=== PATIENT | male | born 1950 | race Caucasian/White ===

== ENCOUNTER 2016-04-15 11:53 | Observation (INO) | payer OTHER ==
[~2016-04-15] VITALS: Ht 170.2 cm; Wt 110.0 kg
[2016-04-15] VITALS (8 sets, daily range): BP systolic 121–130; BP diastolic 60–67; PULSE 80–110; RESP 16–32; TEMP 97.8–98.4; O2SAT 80–97
[~2016-04-15 11:53] MED LIST: ALPH0.1S LEFT EYE; ASPI81TA82 PO; CARB25TA PO; CARV6.252 PO; DICL0.1S LEFT EYE; DUONI NEB; FURO1TAB93 PO; GABA300C3 PO; LATA.005%O EACH EYE; LEVA750T PO; LOVA40TA PO; METF-324 PO; NOVO7030P2 SQ; OMEP20TA PO; PLAV75TA PO; POTA-243 PO; PRED20 PO; ULTR50TA PO; VENTAER INH; VIAG100T PO
--- NOTE | 2016-04-15 12:30 | RADRPT ---
EXAM DATE/TIME: 04/15/2016 12:04 [facility] COMPARISON: No previous studies available for comparison. INDICATIONS : Chest pain. MEDICAL HISTORY : Chronic obstructive pulmonary disease. sleep apnea. SURGICAL HISTORY : Coronary artery stent. ENCOUNTER: Initial ACUITY: 1 week PAIN SCORE: 7/10 LOCATION: middle chest. FINDINGS: A single view of the chest demonstrates the lungs to be symmetrically aerated without evidence of mas s, infiltrate or effusion. The cardiomediastinal contours are unremarkable. Osseous structures are intact. Calcified granuloma left midlung. CONCLUSION: No acute disease. Lucius Jauregui MD on April 15, 2016 at 12:28 Board Certified Radiologist. This report was verified electronically.
[2016-04-15] MEDS ORDERED: SODIUM CHLORIDE 0.9% FLUSH 5 ML FLUSH IVF PRN (12:45)
--- NOTE | 2016-04-15 12:55 | PD ---
HPI Chief Complaint: Respiratory Symptoms Time Seen by Provider: 12:46 Travel History International Travel<30 days: No Contact w/Intl Traveler<30days: No Traveled to known affect area: No History of Present Illness HPI 65-year-old male with a past medical history of h/o STEMI s/p PCI/RCA stent, Obesity, COPD-on home oxygen, CLARI-on CPAP at home, and chronic tobacco abuse, CHF, DM for evaluation of midsternal chest pressure with increased shortness of breath for approximately 1 week. Patient states CPAP makes his chest pain better. He does report intermittent wheezing as well. Patient states he had abdominal pain yesterday, but this has resolved. He believes he takes an anticoagulant, but isn't sure which one. According to chart, he is on Plavix. He does state he took a aspirin this morning, but is not sure how many milligrams he takes. Patient denies any fevers. He does report productive cough. Patient is on home oxygen, 2 liters normally, 3 liters with exertion. PFSH Past Medical History Arthritis: Yes (GENERALIZED) Asthma: Yes Blood Disorders: No Anxiety: No Depression: No Cancer: No Cardiac Catheterization: Yes Cardiovascular Problems: Yes (stent) High Cholesterol: Yes Chest Pain: Yes COPD: Yes Diabetes: Yes Diminished Hearing: No Endocrine: Yes Gastrointestinal Disorders: Yes GERD: Yes Genitourinary: Yes (urine flow weak) Immune Disorder: No Implanted Vascular Access Dvce: No Musculoskeletal: Yes Neurologic: Yes Psychiatric: No Reproductive: No Respiratory: Yes Immunizations Current: Yes Myocardial Infarction: Yes (MAY 2012) Sleep Apnea: Yes (WEARS A CPAP) Ulcer: Yes Past Surgical History Abdominal Surgery: Yes (cholecystectomy) Cardiac Surgery: No Cholecystectomy: Yes Coronary Stent: Yes (1) Ear Surgery: No Endocrine Surgery: No Eye Surgery: No Genitourinary Surgery: No Gynecologic Surgery: No Oral Surgery: No Thoracic Surgery: No Other Surgery: Yes (gallbladder removed) Social History Alcohol Use: No Tobacco Use: Yes (1-2 PPD ) Substance Use: No Allergies-Medications (Allergen,Severity, Reaction): Coded Allergies: No Known Allergies (Verified , 04/15/16) Reported Meds & Prescriptions Reported Meds & Active Scripts Active Levaquin 750 Mg Tab (Levofloxacin) 750 Mg Tab 750 Mg PO DAILY Deltasone 20 Mg Tab (Prednisone) 20 Mg Tab 40 Mg PO DAILY Resp: Albuterol/Ipratropium 2.5 Mg/0.5 Mg (Albuterol/Ipratropium) 1 Amp Nebu 1 Amp NEB TID 30 Days Ventolin Hfa (Albuterol Sulfate) 18 Gm Aero 2 Puff INH Q6 PRN * SHAKE WELL BEFORE USE * Reported Ultram (Tramadol HCl) 50 Mg Tab 50 Mg PO BID Viagra (Sildenafil Citrate) 100 Mg Tab 50 Mg PO 60 MIN PRIOR TO SEX NO MORE THAN 1 DOSE PER 24HRS Lovastatin 40 Mg Tab 40 Mg PO HS Novolin 70/30 (Insulin Human Isoph/Insulin Regular) 100 Units/Ml Inj 54 Units SQ DAILY DAILY BEFORE SUPPER-DO NOT USE MORE THAN 30 MINUTES PRIOR TO MEALS Gabapentin 300 Mg Cap 300 Mg PO HS Diclofenac Sodium (Diclofenac Sodium (Ophth)) 0.1 % Serina 1 Drop LEFT EYE QID Novolin 70/30 (Insulin Human Isoph/Insulin Regular) 100 Units/Ml Inj 46 Units SQ DAILY DAILY BEFORE BREAKFAST-DO NOT TAKE MORE THAN 30 MINUTES BEFORE MEALS Sinemet 25/100 (Carbidopa/Levodopa) 25 Mg/100 Mg Tab 1 Tab PO HS Alphagan P (Brimonidine Tartrate) 0.1 % Serina 1 Drop LEFT EYE Q12 Carvedilol 6.25 mg (Carvedilol) 6.25 Mg Tab 3.125 Mg PO DAILY Plavix (Clopidogrel Bisulfate) 75 Mg Tab 75 Mg PO DAILY Aspir-81 (Aspirin) 81 Mg Tab 81 Mg PO DAILY K-Dur (Potassium Chloride) 10 Meq Tabcr 10 Meq PO DAILY Xalatan (Latanoprost) 0.005 % Soln 1 Drop EACH EYE HS Lasix (Furosemide) 40 Mg Tab 40 Mg PO DAILY Omeprazole 20 mg (Omeprazole) 20 Mg Tab 20 Mg PO DAILY TAKE 30 MINUTES PRIOR TO MEAL Glucophage (Metformin HCl) 1,000 Mg Tab 1,000 Mg PO BID Review of Systems Except as stated in HPI: all other systems reviewed are Neg Physical Exam Narrative GENERAL: Well-developed well-nourished obese male patient, afebrile. SKIN: Warm and dry. HEAD: Normocephalic. Atraumatic. EYES: No scleral icterus. No injection or drainage. NECK: Supple, trachea midline. No JVD or lymphadenopathy. CARDIOVASCULAR: Regular rate and rhythm without murmurs, gallops, or rubs. RESPIRATORY: Breath sounds equal bilaterally. No accessory muscle use. Lungs sounds diminished throughout. GASTROINTESTINAL: Abdomen soft, non-tender, nondistended. MUSCULOSKELETAL: No cyanosis, or edema. BACK: Nontender without obvious deformity. No CVA tenderness. Data Data Last Documented VS Vital Signs Date Time Temp Pulse Resp B/P Pulse Ox O2 Delivery O2 Flow Rate FiO2 04/15/16 12:42 96 Nasal Cannula 2 04/15/16 12:42 85 18 04/15/16 12:42 97.8 Orders Electrocardiogram (04/15/16 12:02) Complete Blood Count With Diff (04/15/16 12:02) Basic Metabolic Panel (Bmp) (04/15/16 12:02) Ckmb (Isoenzyme) Profile (04/15/16 12:02) Troponin I (04/15/16 12:02) Chest, Single Ap (04/15/16 12:02) Oxygen Administration (04/15/16 12:02) Oximetry (04/15/16 12:02) B-Type Natriuretic Peptide (04/15/16 12:44) D-Dimer (04/15/16 12:44) Act Partial Throm Time (Ptt) (04/15/16 12:44) Prothrombin Time / Inr (Pt) (04/15/16 12:44) Iv Access Insert/Monitor (04/15/16 12:44) Ecg Monitoring (04/15/16 12:44) Sodium Chloride 0.9% Flush (Ns Flush) (04/15/16 12:45) Methylprednisolone So Succ Inj (Solumedr (04/15/16 13:00) Albuterol-Ipratropium Neb (Duoneb Neb) (04/15/16 13:00) Ct Pulmonary Angiogram (04/15/16 ) CKMB (04/15/16 13:30) CKMB% (04/15/16 13:30) Iohexol 350 Inj (Omnipaque 350 Inj) (04/15/16 14:59) Diet Heart Healthy (04/15/16 Dinner) Labs Laboratory Tests Test 04/15/16 04/15/16 04/15/16 12:45 12:50 13:30 White Blood Count 8.1 TH/MM3 Red Blood Count 4.61 MIL/MM3 Hemoglobin 13.7 GM/DL Hematocrit 41.1 % Mean Corpuscular Volume 89.2 FL Mean Corpuscular Hemoglobin 29.7 PG Mean Corpuscular Hemoglobin 33.3 % Concent Red Cell Distribution Width 14.9 % Platelet Count 230 TH/MM3 Mean Platelet Volume 8.6 FL Neutrophils (%) (Auto) 72.7 % Lymphocytes (%) (Auto) 18.7 % Monocytes (%) (Auto) 5.2 % Eosinophils (%) (Auto) 1.8 % Basophils (%) (Auto) 1.6 % Neutrophils # (Auto) 5.9 TH/MM3 Lymphocytes # (Auto) 1.5 TH/MM3 Monocytes # (Auto) 0.4 TH/MM3 Eosinophils # (Auto) 0.1 TH/MM3 Basophils # (Auto) 0.1 TH/MM3 CBC Comment DIFF FINAL Differential Comment Prothrombin Time 11.5 SEC Prothromb Time International 1.0 RATIO Ratio Activated Partial 22.1 SEC Thromboplast Time D-Dimer Quantitative (PE/DVT) 0.65 MG/L FEU B-Type Natriuretic Peptide 16 PG/ML Sodium Level 136 MEQ/L Potassium Level 4.1 MEQ/L Chloride Level 92 MEQ/L Carbon Dioxide Level 38.1 MEQ/L Anion Gap 6 MEQ/L Blood Urea Nitrogen 13 MG/DL Creatinine 0.84 MG/DL Estimat Glomerular Filtration 92 ML/MIN Rate Random Glucose 68 MG/DL Calcium Level 8.5 MG/DL Total Creatine Kinase 568 U/L Creatine Kinase MB 7.6 NG/ML Creatine Kinase MB % 1.3 % Troponin I LESS THAN 0.02 NG/ML MDM Medical Decision Making Medical Screen Exam Complete: Yes Emergency Medical Condition: Yes Medical Record Reviewed: Yes Interpretation(s) chest x-ray - CONCLUSION: No acute disease. CT pulmonary angiogram - CONCLUSION: 1. No pulmonary embolus. 2. Mild fibroemphysematous changes, mainly appearing chronic but a very mild degree of acute pulmonary edema possible. No lobar consolidation. 3. Unchanged coronary artery calcification, trace pericardial effusion and upper limits of normal mediastinal lymph nodes. Differential Diagnosis COPD exacerbation versus ACS versus versus pneumonia Narrative Course 65-year-old male presents to the emergency department for evaluation of midsternal chest pressure and increasing shortness of breath for one week. He is on oxygen at home. CBC, BMP, CK, troponin, BNP, d-dimer, PTT, PT/INR are ordered and pending. Chest x-ray is ordered and pending. EKG shows sinus rhythm, heart rate [address] changes. CBC shows no acute normality. BMP shows no acute abnormalities. CK is 568. Troponin is less than 0.02. BNP is 16. PTT is 22.1. PT/INR is 11.5/1.0. D-dimer is elevated at 0.65. Chest x-ray shows no acute disease. CT pulmonary angiogram shows 1. No pulmonary embolus; 2. Mild fibroemphysematous changes, mainly appearing chronic but a very mild degree of acute pulmonary edema possible. No lobar consolidation; 3. Unchanged coronary artery calcification, trace pericardial effusion and upper limits of normal mediastinal lymph nodes. [facility] is paged for admission. Dr. Benitez accepted admission. Diagnosis Primary Impression: Chest pain Qualified Code: R07.9 - Chest pain, unspecified type Additional Impression: COPD (chronic obstructive pulmonary disease) Qualified Code: J44.1 - Chronic obstructive pulmonary disease with acute exacerbation Admitting Information Admitting Physician Requests: Irma Denny Apr 15, 2016 12:55
[2016-04-15] MEDS ORDERED: RESP: ALBUTEROL 2.5 MG/IPRATROPIUM 0.5 MG NEB (SCH) INH ONE (13:00)
[2016-04-15] MEDS ORDERED: methylPREDNISolone SOD SUCC 125 MG/2 ML VIAL IVP ONE (13:00)
[2016-04-15 13:02] LABS: AUTOMATED NEUTROPHIL # 5.9 TH/MM3 (1.8-7.7); BASOPHIL # 0.1 TH/MM3 (0-0.2); BASOPHIL % 1.6 % (0.0-2.0); EOSINOPHIL # 0.1 TH/MM3 (0-0.4); EOSINOPHIL % 1.8 % (0.0-4.0); HEMATOCRIT 41.1 % (39.0-51.0); HEMO FLAGS DIFF FINAL; LYMPH % 18.7 % (9.0-44.0); LYMPHOCYTE # 1.5 TH/MM3 (1.0-4.8); MEAN CELL VOLUME 89.2 FL (80.0-100.0); MEAN CORPUSCULAR HEMOGLOBIN 29.7 PG (27.0-34.0); MEAN CORPUSCULAR HGB CONC 33.3 % (32.0-36.0); MONO % 5.2 % (0.0-8.0); NEUT % 72.7 % (16.0-70.0); PLATELET COUNT 230 TH/MM3 (150-450); RED BLOOD COUNT 4.61 MIL/MM3 (4.50-5.90); RED CELL DISTRIBUTION WIDTH 14.9 % (11.6-17.2); WHITE BLOOD COUNT 8.1 TH/MM3 (4.0-11.0)
[2016-04-15 13:23] LABS: APTT (PATIENT) 22.1 SEC (24.3-30.1); PROTHROMBIN TIME - PATIENT 11.5 SEC (9.8-11.6)
[2016-04-15 14:23] LABS: ANION GAP 6 MEQ/L (5-15); BICARBONATE 38.1 MEQ/L (21.0-32.0); BLOOD UREA NITROGEN 13 MG/DL (7-18); CHLORIDE 92 MEQ/L (98-107); GLOMERULAR FILTRATION RATE 92 ML/MIN (>89); POTASSIUM 4.1 MEQ/L (3.5-5.1); SODIUM (NA) 136 MEQ/L (136-145)
[2016-04-15 14:27] LABS: CREATINE KINASE 568 U/L (39-308)
[2016-04-15 14:40] LABS: CKMB 7.6 NG/ML (0.5-3.6)
[2016-04-15] MEDS ORDERED: IOHEXOL 350 MG/ML 10 ML VIAL (for RAD DIAG) IV ONE (14:59)
--- NOTE | 2016-04-15 15:13 | RADRPT ---
EXAM DATE/TIME: 04/15/2016 14:51 [facility] COMPARISON: CT PULMONARY ANGIOGRAM, November 09, 2015, 20:33. INDICATIONS : Cold symptoms shortness of breath for one week,chest pressure,right mandible pain. IV CONTRAST: 70 cc Omnipaque 350 (iohexol) IV RADIATION DOSE: 25.18 CTDIvol (mGy) MEDICAL HISTORY : Cardiovascular disease. Hypertension. Diabetes SURGICAL HISTORY : None. ENCOUNTER: Initial ACUITY: 1 week PAIN SCALE: 8/10 LOCATION: Right chest TECHNIQUE: Volumetric scanning of the chest was performed using a pulmonary embolism protocol MIP images were re constructed. Using automated exposure control and adjustment of the mA and/or kV according to patien t size, radiation dose was kept as low as reasonably achievable to obtain optimal diagnostic quality images. FINDINGS: There is no pulmonary embolus. Slightly enlarged heart. Left anterior descending coronary artery calcification noted. There is trace pericardial fluid, similar to before. There is basilar predominant thickening of the interlobular septa of both lungs. No confluent co nsolidation. No pleural effusion or pneumothorax. There is mild upper lobe predominant emphysema. Unc hanged calcified granuloma left upper lobe. Scattered subcentimeter mediastinal and right hilar lymph nodes are unchanged. CONCLUSION: 1. No pulmonary embolus. 2. Mild fibroemphysematous changes, mainly appearing chronic but a very mild degree of acute pulmonar y edema possible. No lobar consolidation. 3. Unchanged coronary artery calcification, trace pericardial effusion and upper limits of normal med iastinal lymph nodes. Catracho Monroe MD on April 15, 2016 at 15:10 Board Certified Radiologist. This report was verified electronically.
[2016-04-15] MEDS ORDERED: SODIUM CHLORIDE 0.9% FLUSH 5 ML FLUSH IV PRN (17:15)
[2016-04-15] MEDS ORDERED: DEXTROSE 50% IN WATER 50 ML VIAL(D50) IV PUSH PRN (17:30)
[2016-04-15] MEDS ORDERED: GLUCAGON 1 MG/ML VIAL OTHER PRN (17:30)
[2016-04-15] MEDS ORDERED: CYCLOBENZAPRINE HCL 10 MG TAB PO PRN (17:30)
[2016-04-15] MEDS ORDERED: PILL SPLITTER OTHER PRN (17:30)
[2016-04-15] MEDS ORDERED: ASPI81CH CHEW (17:37)
[2016-04-15] MEDS ORDERED: METF1000 PO (17:37)
[2016-04-15] MEDS ORDERED: POTA10TA2 PO (17:37)
[2016-04-15] MEDS ORDERED: OMEP20CA2 PO (17:37)
[2016-04-15] MEDS ORDERED: LOVA40TA PO (17:37)
[2016-04-15] MEDS ORDERED: MAGN400T5 PO (17:37)
[2016-04-15] MEDS ORDERED: LATA0.002 RIGHT EYE (17:37)
[2016-04-15] MEDS ORDERED: LISI2.5T3 PO (17:37)
[2016-04-15] MEDS ORDERED: GABA300C5 PO (17:37)
[2016-04-15] MEDS ORDERED: IBUP800T23 PO (17:37)
[2016-04-15] MEDS ORDERED: ACET325T PO (17:37)
[2016-04-15] MEDS ORDERED: NOVO7030P2 SQ ×2 (17:37)
[2016-04-15] MEDS ORDERED: CARB25TA9 PO (17:37)
[2016-04-15] MEDS ORDERED: BRIM0.155 RIGHT EYE (17:37)
[2016-04-15] MEDS ORDERED: FURO40TA PO (17:37)
--- NOTE | 2016-04-15 17:41 | HHI.HP ---
[facility] Admission Diagnosis chest pain, COPD Diagnoses: Chief Complaint: Chest pain Travel History International Travel<30 Days: No Contact w/Intl Traveler <30 Da: No Traveled to Known Affected Are: No History of Present Illness 65-year-old male with a past medical history of CAD, COPD, DM, GERD, HLD, HTN, RLS, CLARI who presented with chest wall pain. The patient states that for the past week or so he's been having episodes of right lower sternal border/right upper quadrant chest pressure. He states these episodes of chest pressure, and slowly gotten worse over the past few days and become chest pain. The pain radiates up to his anterior neck. He describes the pain as an ache and a cramp. He has COPD and is on oxygen at home, denies any increased shortness of breath from baseline including related to the chest pain. He denies any episodes of diaphoresis. He admits to heart racing. The pain is worsened whenever he sits up. He has not tried anything to relieve pain. He states he previously had a stent placed in 2012, but states at that time the pain was dissimilar to this, more like an upset stomach. He denies any fevers, chills, or cough. He continues to smoke, but has been cutting down over the past 5 months. He denies any history of CHF. Review of Systems Other 10 point review of systems performed and was negative except as stated in the history of present illness Past Family Social History Past Medical History Coronary artery disease with stenting in 2012 COPD on home oxygen, 23 liters Diabetes mellitus with peripheral neuropathy GERD/history of ulcers Hypertension Hyperlipidemia Versus leg syndrome Sleep apnea on CPAP Past Surgical History Cardiac catheterization with stenting 2012 EGD/colonoscopy Cholecystectomy Reported Medications Home medication list reviewed, awaiting updated med rec Allergies: Coded Allergies: No Known Allergies (Verified , 04/15/16) Active Ordered Medications Current Medications Medications (Trade) Dose Ordered Sig/Vale Route Start Time Stop Time Status Last Admin (NS Flush) 2 ml UNSCH PRN IVF 04/15/16 12:45 (NS Flush) 2 ml BID IV 04/15/16 21:00 UNV (NS Flush) 2 ml UNSCH PRN IV 04/15/16 17:15 UNV (NovoLOG MIX 70/ 30 INJ) 50 units BID@08,17 SQ 04/16/16 08:00 UNV (D50w (Vial) Inj) 25 ml UNSCH PRN IV PUSH 04/15/16 17:30 UNV (Glucagon Inj) 1 mg UNSCH PRN OTHER 04/15/16 17:30 UNV (Flexeril) 5 mg Q8HR PO 04/15/16 22:00 UNV (Flexeril) 5 mg Q8H PRN PO 04/15/16 17:30 UNV Family History Mother had diabetes Social History The patient smoked 2-3 packs per day for greater than 50 years Quit drinking 18 years ago Denies any drug use Physical Exam Vital Signs Vital Signs Date Time Temp Pulse Resp B/P Pulse Ox O2 Delivery O2 Flow Rate FiO2 04/15/16 12:42 96 Nasal Cannula 2 04/15/16 12:42 85 18 96 Nasal Cannula 2 04/15/16 12:42 97.8 80 18 Nasal Cannula 2 04/15/16 11:58 32 90 04/15/16 11:55 98.4 110 16 130/65 80 Nasal Cannula 4 Physical Exam GENERAL: Well-developed well-nourished obese. In no acute distress. Comfortable on 3 L O2 currently. The patient's right lower chest/RUQ cramping is reproduced when the patient is sat up in bed. SKIN: Warm and dry. No lesions noted. HEENT: Normocephalic. Pupils equal and round. Mucous membranes pink and moist. CARDIOVASCULAR: Regular rate and rhythm. No murmur appreciated. RESPIRATORY: No accessory muscle use. Clear to auscultation. Diminished breath sounds in all lung farah. No wheezing or crackles. GASTROINTESTINAL: Abdomen soft, non-tender, nondistended. Bowel sounds x4. MUSCULOSKELETAL: No obvious deformities. No clubbing or cyanosis. No edema. NEUROLOGICAL: Awake and alert. No focal neurological deficits. Moves upper and lower extremities spontaneously. Normal speech. PSYCHIATRIC: Appropriate mood and affect; insight and judgment normal. Laboratory Laboratory Tests Test 04/15/16 04/15/16 04/15/16 12:45 12:50 13:30 White Blood Count 8.1 Red Blood Count 4.61 Hemoglobin 13.7 Hematocrit 41.1 Mean Corpuscular Volume 89.2 Mean Corpuscular Hemoglobin 29.7 Mean Corpuscular Hemoglobin 33.3 Concent Red Cell Distribution Width 14.9 Platelet Count 230 Mean Platelet Volume 8.6 Neutrophils (%) (Auto) 72.7 Lymphocytes (%) (Auto) 18.7 Monocytes (%) (Auto) 5.2 Eosinophils (%) (Auto) 1.8 Basophils (%) (Auto) 1.6 Neutrophils # (Auto) 5.9 Lymphocytes # (Auto) 1.5 Monocytes # (Auto) 0.4 Eosinophils # (Auto) 0.1 Basophils # (Auto) 0.1 CBC Comment DIFF FINAL Differential Comment Prothrombin Time 11.5 Prothromb Time International 1.0 Ratio Activated Partial 22.1 Thromboplast Time D-Dimer Quantitative (PE/DVT) 0.65 B-Type Natriuretic Peptide 16 Sodium Level 136 Potassium Level 4.1 Chloride Level 92 Carbon Dioxide Level 38.1 Anion Gap 6 Blood Urea Nitrogen 13 Creatinine 0.84 Estimat Glomerular Filtration 92 Rate Random Glucose 68 Calcium Level 8.5 Total Creatine Kinase 568 Creatine Kinase MB 7.6 Creatine Kinase MB % 1.3 Troponin I LESS THAN 0.02 Result Diagram: 04/15/16 1245 04/15/16 1330 Assessment and Plan Problem List: (1) Diabetes mellitus ICD Code: E11.9 Status: Chronic (2) GERD (gastroesophageal reflux disease) ICD Code: K21.9 Status: Chronic (3) Obstructive sleep apnea ICD Code: G47.33 Status: Chronic (4) CAD (coronary artery disease) ICD Code: I25.10 Status: Chronic (5) Restless leg syndrome ICD Code: G25.81 Status: Chronic (6) Hyperlipidemia ICD Code: E78.5 Status: Chronic (7) COPD (chronic obstructive pulmonary disease) ICD Code: J44.9 Status: Chronic (8) Chest pain ICD Code: R07.9 Status: Acute Assessment and Plan 65-year-old male with a past medical history of CAD, COPD, DM, GERD, HLD, HTN, RLS, CLARI who presented with chest wall pain Chest wall pain: Presented with R lower chest/RUQ aching/cramping pain worse with sitting up, start Flexeril scheduled and as needed. Pulmonary angiogram negative for PE. Initial troponin within normal limits. With the patient's multiple risk factors and history of CAD, we'll R/O ACS per protocol with serial enzymes and EKGs. Continue aspirin, statin. Would avoid beta sebastien with severe COPD. Monitor on telemetry. COPD with chronic respiratory failure on home oxygen: The patient denies any shortness of breath, but was a bit hypoxic and does report improvement in his symptoms with steroids in the ED. Chest CT does show fibroemphysematous changes. Will give short course of oral prednisone. O2 and nebs as needed. Possible pulmonary edema: Question of mild acute pulmonary edema on chest CT. Does not appear volume overloaded and BNP is 16. On oral Lasix daily, will increase to twice a day for today with symptoms as above. Follow-up BMP. Diabetes mellitus: Episode of hypoglycemia while nothing by mouth in the ED. Reports recent A1c 7.3. Resume home NovoLog 70/30 50 units twice a day. Hold metformin for now. Additional coverage with sliding scale insulin if needed. Hypoglycemia protocol. Continue gabapentin for neuropathy. Sleep apnea: Resume home CPAP. Tobacco abuse: At least 100 pack year history. Patient counseled on cessation. GERD/PUD: Continue PPI HTN: Currently normotensive. Continue home lisinopril. RLS: Continue Sinemet. DVT prophylaxis: SCDs Written by Ronald Mejia, acting as scribe for Dr. Benitez on 04/15/16 at 17:20. The documentation accurately reflects the work performed [id number] by me on at 17:20. Discussed Condition With Patient, ED RN Problem Qualifiers (1) Diabetes mellitus: Qualified Code: E11.649 - Type 2 diabetes mellitus with hypoglycemia without coma, with long-term current use of insulin (2) GERD (gastroesophageal reflux disease): Qualified Code: K21.9 - Gastroesophageal reflux disease, esophagitis presence not specified (3) CAD (coronary artery disease): Qualified Code: I25.10 - Coronary artery disease involving [place] heart, angina presence unspecified, unspecified vessel or lesion type (4) Hyperlipidemia: Qualified Code: E78.5 - Hyperlipidemia, unspecified hyperlipidemia type (5) COPD (chronic obstructive pulmonary disease): Qualified Code: J44.1 - Chronic obstructive pulmonary disease with acute exacerbation (6) Chest pain: Qualified Code: R07.9 - Chest pain, unspecified type Ronald Mejia Apr 15, 2016 17:41 Robert Benitez MD Apr 15, 2016 17:56
[2016-04-15] MEDS ORDERED: RESP: ALBUTEROL 2.5 MG/IPRATROPIUM 0.5 MG NEB (PRN) NEB (17:45)
[2016-04-15] MEDS ORDERED: IBUPROFEN 800 MG TAB PO PRN (17:45)
[2016-04-15] MEDS: FUROSEMIDE 40 MG TAB PO SCH (18:11)
[2016-04-15] MEDS: INSULIN ASPART SUPPLEMENTAL SCALE SQ SCH (20:55)
[2016-04-15] MEDS: SODIUM CHLORIDE 0.9% FLUSH 5 ML FLUSH IV SCH (20:56)
[2016-04-15] MEDS: predniSONE 20 MG TAB PO SCH (20:56)
[2016-04-15] MEDS: PANTOPRAZOLE SOD 20 MG DELAYED RELEASE TAB PO SCH (20:56)
[2016-04-15] MEDS ORDERED: LATANOPROST 0.005% OPHT SOLN 2.5 ML BTL RIGHT EYE SCH (21:00)
[2016-04-15] MEDS ORDERED: GABAPENTIN 300 MG CAP PO SCH (21:00)
[2016-04-15] MEDS ORDERED: CARBIDOPA/LEVODOPA 25 MG/100 MG TAB PO SCH (21:00)
[2016-04-15] MEDS: BRIMONIDINE TARTRATE 0.15% OPHT SOLN 5 ML BTL RIGHT EYE SCH (21:02)
[2016-04-15] MEDS: CYCLOBENZAPRINE HCL 10 MG TAB PO SCH (21:03)
[2016-04-15 21:47] LABS: CREATINE KINASE 480 U/L (39-308)
[2016-04-15 21:59] LABS: CKMB 6.8 NG/ML (0.5-3.6)
[2016-04-16 00:40] VITALS: BP 126/74; PULSE 74; RESP 18; TEMP 98.8; O2SAT 99
[2016-04-16 01:55] VITALS: PULSE 96
[2016-04-16 02:35] LABS: MAGNESIUM 2.1 MG/DL (1.5-2.5)
[2016-04-16 02:37] LABS: CREATINE KINASE 415 U/L (39-308)
[2016-04-16 02:50] LABS: CKMB 6.2 NG/ML (0.5-3.6)
[2016-04-16 04:10] VITALS: O2SAT 94
[2016-04-16 04:24] VITALS: BP 121/70; PULSE 92; RESP 21; TEMP 98.2; O2SAT 97
[2016-04-16] MEDS: PANTOPRAZOLE SOD 20 MG DELAYED RELEASE TAB PO SCH (06:13)
[2016-04-16] MEDS: INSULIN ASPART SUPPLEMENTAL SCALE SQ SCH (06:14)
[2016-04-16] MEDS: CYCLOBENZAPRINE HCL 10 MG TAB PO SCH (06:14)
[2016-04-16 07:39] LABS: BICARBONATE 37.6 MEQ/L (21.0-32.0); POTASSIUM 4.3 MEQ/L (3.5-5.1)
[2016-04-16 07:43] LABS: AUTOMATED NEUTROPHIL # 5.8 TH/MM3 (1.8-7.7); BASOPHIL % 0.3 % (0.0-2.0); HEMATOCRIT 44.1 % (39.0-51.0); HEMO FLAGS DIFF FINAL; LYMPH % 15.5 % (9.0-44.0); LYMPHOCYTE # 1.1 TH/MM3 (1.0-4.8); MEAN CELL VOLUME 90.2 FL (80.0-100.0); MEAN CORPUSCULAR HEMOGLOBIN 29.4 PG (27.0-34.0); MEAN CORPUSCULAR HGB CONC 32.6 % (32.0-36.0); MONO % 4.8 % (0.0-8.0); NEUT % 79.4 % (16.0-70.0); PLATELET COUNT 258 TH/MM3 (150-450); RED BLOOD COUNT 4.89 MIL/MM3 (4.50-5.90); RED CELL DISTRIBUTION WIDTH 14.8 % (11.6-17.2); WHITE BLOOD COUNT 7.3 TH/MM3 (4.0-11.0)
[2016-04-16 07:48] VITALS: BP 118/66; PULSE 87; RESP 19; TEMP 98.5; O2SAT 95
[2016-04-16 08:00] VITALS: PULSE 89
[2016-04-16] MEDS ORDERED: INSULIN ASPAR PROT 70/30 1,000 UNITS/10 ML VIAL SQ SCH (08:00)
[2016-04-16] MEDS: predniSONE 20 MG TAB PO SCH (08:52)
[2016-04-16] MEDS: FUROSEMIDE 40 MG TAB PO SCH (08:53)
[2016-04-16] MEDS: SODIUM CHLORIDE 0.9% FLUSH 5 ML FLUSH IV SCH (08:54)
[2016-04-16] MEDS: BRIMONIDINE TARTRATE 0.15% OPHT SOLN 5 ML BTL RIGHT EYE SCH (08:55)
[2016-04-16] MEDS ORDERED: POTASSIUM CHLORIDE 10 MEQ CONTROLLED RELEASE TAB PO SCH (09:00)
[2016-04-16] MEDS ORDERED: LISINOPRIL 5 MG TAB PO SCH (09:00)
[2016-04-16] MEDS ORDERED: MAGNESIUM OXIDE 400 MG TAB PO SCH (09:00)
[2016-04-16] MEDS ORDERED: ASPIRIN 81 MG CHEW TAB CHEW SCH (09:00)
[2016-04-16] MEDS ORDERED: PRAVASTATIN SOD 40 MG TAB PO SCH (09:00)
--- NOTE | 2016-04-16 09:25 | HHI.PR ---
Subjective Remarks Follow-up COPD exacerbation/atypical chest pain 04/16/16-patient seen and examined; reports some improvement of shortness of breath and denies any chest pain this morning. Vitals stable. Objective Vitals Vital Signs Date Time Temp Pulse Resp B/P Pulse Ox O2 Delivery O2 Flow Rate FiO2 04/16/16 07:48 98.5 87 19 118/66 95 04/16/16 04:24 98.2 92 21 121/70 97 04/16/16 04:10 94 04/16/16 01:55 96 04/16/16 00:40 98.8 74 18 126/74 99 04/15/16 20:00 92 Nasal Cannula 3.00 04/15/16 19:08 97.8 84 18 121/65 97 04/15/16 18:36 97.8 95 20 122/60 93 04/15/16 18:16 98.4 92 16 123/62 96 Nasal Cannula 3 04/15/16 14:20 98.4 98 16 128/67 97 Nasal Cannula 3 04/15/16 12:42 96 Nasal Cannula 2 04/15/16 12:42 85 18 96 Nasal Cannula 2 04/15/16 12:42 97.8 80 18 Nasal Cannula 2 04/15/16 11:58 32 90 04/15/16 11:55 98.4 110 16 130/65 80 Nasal Cannula 4 I/O 04/15/16 04/15/16 04/15/16 04/16/16 04/16/16 04/16/16 07:00 15:00 23:00 07:00 15:00 23:00 Intake Total 550 ml Balance 550 ml Intake Oral 550 ml # Voids 3 # Bowel Movements 0 Result Diagram: 04/16/16 0644 04/16/16 0644 Imaging Last Impressions Chest X-Ray 04/15/16 1202 Signed Impressions: Service Date/Time: Friday, April 15, 2016 12:04 - CONCLUSION: No acute disease. Lucius Jauregui MD CT Angiography 04/15/16 0000 Signed Impressions: Service Date/Time: Friday, April 15, 2016 14:51 - CONCLUSION: 1. No pulmonary embolus. 2. Mild fibroemphysematous changes, mainly appearing chronic but a very mild degree of acute pulmonary edema possible. No lobar consolidation. 3. Unchanged coronary artery calcification, trace pericardial effusion and upper limits of normal mediastinal lymph nodes. Catracho Monroe MD Objective Remarks GENERAL: NAD SKIN: Warm and dry. HEAD: Normocephalic. EYES: No scleral icterus. No injection or drainage. NECK: Supple, trachea midline. No JVD or lymphadenopathy. CARDIOVASCULAR: Regular rate and rhythm without murmurs, gallops, or rubs. RESPIRATORY: Breath sounds equal bilaterally. No accessory muscle use. GASTROINTESTINAL: Abdomen soft, non-tender, nondistended. MUSCULOSKELETAL: No cyanosis, or edema. BACK: Nontender without obvious deformity. No CVA tenderness. A/P Problem List: (1) Diabetes mellitus ICD Code: E11.9 Status: Chronic (2) GERD (gastroesophageal reflux disease) ICD Code: K21.9 Status: Chronic (3) Obstructive sleep apnea ICD Code: G47.33 Status: Chronic (4) CAD (coronary artery disease) ICD Code: I25.10 Status: Chronic (5) Restless leg syndrome ICD Code: G25.81 Status: Chronic (6) Hyperlipidemia ICD Code: E78.5 Status: Chronic (7) COPD (chronic obstructive pulmonary disease) ICD Code: J44.9 Status: Chronic (8) Chest pain ICD Code: R07.9 Status: Resolved Assessment and Plan 65-year-old male with Chest wall pain: Resolved since admission. Pulmonary angiogram negative for PE. ACS ruled out per protocol with serial enzymes and EKGs. Continue aspirin , statin. Would avoid beta sebastien with severe COPD. Monitor on telemetry. COPD with chronic respiratory failure on home oxygen: Improving since admission , continue with short course steroid, duo neb and keep oxygen saturation above 90%. Add Symbicort and Spiriva. Chest CT does show fibroemphysematous changes. Possible pulmonary edema: Question of mild acute pulmonary edema on chest CT. Does not appear volume overloaded and BNP is 16. Improve with oral Lasix daily, Diabetes mellitus: Reports recent A1c 7.3. Continue home NovoLog 70/30 50 units twice a day. Hold metformin for now. Additional coverage with sliding scale insulin if needed. Hypoglycemia protocol. Continue gabapentin for neuropathy. Sleep apnea: Continue home CPAP. Tobacco abuse: At least 100 pack year history. Patient counseled on cessation. GERD/PUD: Continue PPI HTN: Currently normotensive. Continue home lisinopril. RLS: Continue Sinemet. DVT prophylaxis: SCDs Discharge Planning Discharge patient to home Condition on discharge: Improved Regular Diet as tolerated Ad Starr activity Rx written:see EMR Follow-up with primary care physician in 1 week Problem Qualifiers (1) Diabetes mellitus: Qualified Code: E11.649 - Type 2 diabetes mellitus with hypoglycemia without coma, with long-term current use of insulin (2) GERD (gastroesophageal reflux disease): Qualified Code: K21.9 - Gastroesophageal reflux disease, esophagitis presence not specified (3) CAD (coronary artery disease): Qualified Code: I25.10 - Coronary artery disease involving [place] heart, angina presence unspecified, unspecified vessel or lesion type (4) Hyperlipidemia: Qualified Code: E78.5 - Hyperlipidemia, unspecified hyperlipidemia type (5) COPD (chronic obstructive pulmonary disease): Qualified Code: J44.1 - Chronic obstructive pulmonary disease with acute exacerbation (6) Chest pain: Qualified Code: R07.9 - Chest pain, unspecified type Robert Benitez MD Apr 16, 2016 09:25
[2016-04-16] MEDS ORDERED: POTA-163 PO (09:33)
[2016-04-16] MEDS ORDERED: SPIRCAP INH (09:33)
[2016-04-16] MEDS ORDERED: PRED20 PO (09:33)
[2016-04-16] MEDS ORDERED: SYMB160A INH (09:33)
[2016-04-16] MEDS ORDERED: FURO1TAB60 PO (09:33)
[2016-04-16] MEDS ORDERED: IPRA17I INH (09:33)
[2016-04-16] MEDS ORDERED: BUDESONIDE-FORMOTEROL 80/4.5 MCG INHALER INH SCH (11:00)
--- NOTE | 2016-04-16 23:44 | EKG ---
Date Performed: 04/16/2016 Time Performed: 02:49:56 PTAGE: 65 years EKG: Sinus rhythm NORMAL ECG PREVIOUS TRACING : 04/15/2016 19.40 DOCTOR: Penny Bee Interpretating Date/Time 04/16/2016 23:40:54
--- NOTE | 2016-04-16 23:52 | EKG ---
Date Performed: 04/15/2016 Time Performed: 19:40:46 PTAGE: 65 years EKG: Sinus rhythm NORMAL ECG PREVIOUS TRACING : 04/15/2016 12.39 DOCTOR: Penny Bee Interpretating Date/Time 04/16/2016 23:45:40
--- NOTE | 2016-04-17 00:01 | EKG ---
Date Performed: 04/15/2016 Time Performed: 12:39:05 PTAGE: 65 years EKG: Sinus rhythm WITH SINUS ARRHYTHMIA NORMAL ECG INTERPRETATION BASED ON A DEFAULT AGE OF 40 YEARS PREVIOUS TRACING : 04/15/2016 12.37 DOCTOR: Penny eBe Interpretating Date/Time 04/16/2016 23:51:43
[2016-04-17] MEDS ORDERED: TIOTROPIUM BROMIDE 18 MCG INH INH SCH (09:00)
== END 2016-04-16 13:54 | disposition home or self-care (01) ==
LOC: NEPE 11:53 → NEDA 16:59 → NEPGCP 18:32
PROVIDERS: ADMIT Hospitalist; ATTEND Hospitalist
DX: R07.89 Other chest pain (principal); J44.1 Chronic obstructive pulmonary disease with (acute) exacerbation; J96.11 Chronic respiratory failure with hypoxia; E11.42 Type 2 diabetes mellitus with diabetic polyneuropathy; E11.649 Type 2 diabetes mellitus with hypoglycemia without coma; G47.33 Obstructive sleep apnea (adult) (pediatric); F17.200 Nicotine dependence, unspecified, uncomplicated; J45.909 Unspecified asthma, uncomplicated; M19.90 Unspecified osteoarthritis, unspecified site; E78.00 Pure hypercholesterolemia, unspecified; E78.5 Hyperlipidemia, unspecified; G25.81 Restless legs syndrome; K21.0 Gastro-esophageal reflux disease with esophagitis; I10 Essential (primary) hypertension; I25.119 Atherosclerotic heart disease of native coronary artery with unspecified angina pectoris; I25.2 Old myocardial infarction; I50.9 Heart failure, unspecified; Z99.81 Dependence on supplemental oxygen; Z79.02 Long term (current) use of antithrombotics/antiplatelets; Z95.5 Presence of coronary angioplasty implant and graft; K27.9 Peptic ulcer, site unspecified, unspecified as acute or chronic, without hemorrhage or perforation; Z79.84 Long term (current) use of oral hypoglycemic drugs
CPT/HCPCS: 71010; 71275; 80048; 82550; 82552; 82948; 83735; 83880; 84484; 85025; 85379; 85610; 85730; 93005; 94002; 94664; 96374; 99285; G0378; J1815; J2930; J7512; Q9967

== ENCOUNTER 2016-05-28 04:58 | Inpatient (IN) | payer OTHER, MEDICARE ==
[~2016-05-28] VITALS: Ht 170.2 cm; Wt 103.9 kg
[2016-05-28] VITALS (16 sets, daily range): BP systolic 107–144; BP diastolic 59–81; PULSE 86–132; RESP 18–36; TEMP 97.8–102; O2SAT 76–99
[~2016-05-28 04:58] MED LIST changes: +ACET325T PO; -ALPH0.1S LEFT EYE; +ASPI81CH CHEW; -ASPI81TA82 PO; +BRIM0.155 RIGHT EYE; -CARB25TA PO; +CARB25TA9 PO; -CARV6.252 PO; -DICL0.1S LEFT EYE; -DUONI NEB; +FURO1TAB60 PO; -FURO1TAB93 PO; -GABA300C3 PO; +GABA300C5 PO; +IBUP800T23 PO; +IPRA17I INH; -LATA.005%O EACH EYE; +LATA0.002 RIGHT EYE; -LEVA750T PO; +LISI2.5T3 PO; +MAGN400T5 PO; -METF-324 PO; +METF1000 PO; +OMEP20CA2 PO; -OMEP20TA PO; -PLAV75TA PO; +POTA-163 PO; -POTA-243 PO; +SPIRCAP INH; +SYMB160A INH; -ULTR50TA PO; -VENTAER INH; -VIAG100T PO
[2016-05-28] MEDS ORDERED: SODIUM CHLORIDE 0.9% FLUSH 5 ML FLUSH IVF PRN (05:15)
[2016-05-28] MEDS ORDERED: methylPREDNISolone SOD SUCC 125 MG/2 ML VIAL IVP ONE (05:15)
[2016-05-28] MEDS ORDERED: SODIUM CHLOR 0.9% 1000 ML INJ 1,000 ML IV ONE (05:17)
--- NOTE | 2016-05-28 05:22 | PD ---
HPI Chief Complaint: Respiratory Distress Time Seen by Provider: 05:11 Travel History International Travel<30 days: No Contact w/Intl Traveler<30days: No Traveled to known affect area: No History of Present Illness HPI The patient is 65 years old and he suffers from diabetes congestive heart failure coronary artery disease COPD sleep apnea and arrives tonight due to increasing shortness of breath. For the past few days he has been short of breath. It got much worse this morning prompting his evaluation here now. He reports using nebulizers at home every 6 hours with mild to moderate relief. He wears oxygen 24 7 and was using his nasal cannula at 6 L/m at home and was still short of breath. Evidently his O2 sat was in the 70s upon arrival. Intermittent fever is been observed throughout the week as well. The patient reports coughing up white phlegm as well as some retrosternal chest pain associated with coughing. PFSH Past Medical History Arthritis: Yes (GENERALIZED) Asthma: Yes Blood Disorders: No Anxiety: No Depression: No Heart Rhythm Problems: No Cancer: No Cardiac Catheterization: Yes Cardiovascular Problems: Yes (stent) High Cholesterol: Yes Chest Pain: Yes Congestive Heart Failure: Yes COPD: Yes Diabetes: Yes Patient Takes Glucophage: No Diminished Hearing: No Endocrine: Yes Gastrointestinal Disorders: Yes GERD: Yes Genitourinary: Yes (WEAK URINE FLOW) Hypertension: Yes Immune Disorder: No Implanted Vascular Access Dvce: No Musculoskeletal: Yes Neurologic: Yes Psychiatric: No Reproductive: No Respiratory: Yes (copd 3l o2 @home) Immunizations Current: Yes Myocardial Infarction: Yes (MAY 2012) Sleep Apnea: Yes (WEARS A CPAP AT HOME) Ulcer: Yes Influenza Vaccination: Yes Past Surgical History Abdominal Surgery: Yes (cholecystectomy) Cardiac Surgery: No Cholecystectomy: Yes Coronary Stent: Yes (1) Ear Surgery: No Endocrine Surgery: No Eye Surgery: No Genitourinary Surgery: No Gynecologic Surgery: No Neurologic Surgery: No Oral Surgery: No Thoracic Surgery: No Other Surgery: Yes (gallbladder removed) Social History Alcohol Use: No Tobacco Use: Yes (1-2 PPD) Substance Use: No Allergies-Medications (Allergen,Severity, Reaction): Coded Allergies: No Known Allergies (Verified , 05/28/16) Reported Meds & Prescriptions Reported Meds & Active Scripts Active Atrovent HFA 12.9 GM Inh (Ipratropium [place]) 17 Mcg/Act Aer 2 Puff INH QID Symbicort Inh (Budesonide/Formoterol Fumarate) 160-4.5 Mcg/Act Aero 2 Puff INH Q12HR Spiriva [place] (Tiotropium Inh) 18 Mcg Cap 18 Mcg INH DAILY 1 capsule = 18 mcg Prednisone 20 Mg Tab 20 Mg PO BID Potassium Chloride ER (Potassium Chloride) 20 Meq Tab 20 Meq PO DAILY Lasix (Furosemide) 40 Mg Tab 40 Mg PO BID@09,18 Reported Novolin 70-30 Inj (Insulin Human Isoph/Insulin Regular) 1,000 Unit/10 Ml Vial 54 Units SQ AC DINNER Novolin 70-30 Inj (Insulin Human Isoph/Insulin Regular) 1,000 Unit/10 Ml Vial 46 Units SQ AC BREAKFAST Omeprazole 20 Mg Cap 20 Mg PO ACHS Metformin (Metformin HCl) 1,000 Mg Tab 1,000 Mg PO BIDPC With meals Magnesium Oxide 400 Mg Tab 400 Mg PO DAILY Lovastatin 40 Mg Tab 40 Mg PO DAILY Lisinopril 2.5 Mg Tab 2.5 Mg PO DAILY Latanoprost Opth Drops (Latanoprost) 0.005% Drops 1 Drop RIGHT EYE HS Refrigerate until opened. Ibuprofen 800 Mg Tab 800 Mg PO BID PRN Gabapentin 300 Mg Cap 300 Mg PO HS Carbidopa-Levodopa 25-100 Mg Tab 1 Tab PO HS Brimonidine Opth Drops (Brimonidine Tartrate) 0.15% Soln 1 Drop RIGHT EYE BID Aspirin 81 Mg Chew 81 Mg CHEW DAILY Acetaminophen 325 Mg Tab 325 Mg PO DAILY PRN Review of Systems Except as stated in HPI: all other systems reviewed are Neg General / Constitutional: Positive: Fever Cardiovascular: Positive: Chest Pain or Discomfort Respiratory: Positive: Cough, Shortness of Breath, Wheezing Physical Exam Narrative GENERAL: 65 yo M pleasant well-nourished well-developed markedly dyspneic and speaks few word sentences SKIN: Warm and dry. HEAD: Atraumatic. Normocephalic. EYES: Pupils equal and round. No scleral icterus. No injection or drainage. ENT: No nasal bleeding or discharge. Mucous membranes pink and moist. NECK: Trachea midline. No JVD. CARDIOVASCULAR: Regular rhythm. Tachycardia. RESPIRATORY: Wheezing. Tachypnea. Dyspnea. GASTROINTESTINAL: Abdomen soft, non-tender, nondistended. Hepatic and splenic margins not palpable. MUSCULOSKELETAL: No obvious deformities. No clubbing. No cyanosis. No edema. NEUROLOGICAL: Awake and alert. No obvious cranial nerve deficits. Motor grossly within normal limits. Normal speech. PSYCHIATRIC: Appropriate mood and affect; insight and judgment normal. Data Data Last Documented VS Vital Signs Date Time Temp Pulse Resp B/P Pulse Ox O2 Delivery O2 Flow Rate FiO2 05/28/16 05:46 109 05/28/16 05:19 99 BiPAP 60 05/28/16 05:15 6 05/28/16 05:15 102.0 05/28/16 05:09 30 141/76 VS reviewed Orders Complete Blood Count With Diff (05/28/16 05:14) Basic Metabolic Panel (Bmp) (05/28/16 05:14) Influenzae A/B Antigen (05/28/16 05:14) Iv Access Insert/Monitor (05/28/16 05:14) Electrocardiogram (05/28/16 05:14) Ecg Monitoring (05/28/16 05:14) Oximetry (05/28/16 05:14) Oxygen Administration (05/28/16 05:14) Chest, Single Ap (05/28/16 05:14) Sodium Chloride 0.9% Flush (Ns Flush) (05/28/16 05:15) Methylprednisolone So Succ Inj (Solumedr (05/28/16 05:15) Albuterol-Ipratropium Neb (Duoneb Neb) (05/28/16 05:15) B-Type Natriuretic Peptide (05/28/16 05:14) Troponin I (05/28/16 05:14) Lactic Acid Sepsis Protocol (05/28/16 05:17) Blood Culture (05/28/16 05:17) Sodium Chlor 0.9% 1000 Ml Inj (Ns 1000 M (05/28/16 05:17) Ceftriaxone Inj (Rocephin Inj) (05/28/16 05:30) Azithromycin (Zithromax) (05/28/16 09:00) Acetaminophen (Tylenol) (05/28/16 05:45) Aspirin (Aspirin) (05/28/16 06:00) Nitroglycerin 2% Oint (Nitroglycerin 2% (05/28/16 06:00) Metoprolol Tartrate Inj (Lopressor Inj) (05/28/16 06:00) Enoxaparin Inj (Lovenox Inj) (05/28/16 06:00) Admit Order (Ed Use Only) (05/28/16 06:15) Labs Laboratory Tests Test 05/28/16 05:20 White Blood Count 9.2 TH/MM3 Red Blood Count 4.45 MIL/MM3 Hemoglobin 13.2 GM/DL Hematocrit 40.4 % Mean Corpuscular Volume 90.8 FL Mean Corpuscular Hemoglobin 29.7 PG Mean Corpuscular Hemoglobin 32.7 % Concent Red Cell Distribution Width 16.1 % Platelet Count 221 TH/MM3 Mean Platelet Volume 7.8 FL Neutrophils (%) (Auto) 66.4 % Lymphocytes (%) (Auto) 24.5 % Monocytes (%) (Auto) 8.2 % Eosinophils (%) (Auto) 0.3 % Basophils (%) (Auto) 0.6 % Neutrophils # (Auto) 6.1 TH/MM3 Lymphocytes # (Auto) 2.2 TH/MM3 Monocytes # (Auto) 0.8 TH/MM3 Eosinophils # (Auto) 0.0 TH/MM3 Basophils # (Auto) 0.1 TH/MM3 CBC Comment DIFF FINAL Differential Comment Sodium Level 137 MEQ/L Potassium Level 4.2 MEQ/L Chloride Level 98 MEQ/L Carbon Dioxide Level 33.8 MEQ/L Anion Gap 5 MEQ/L Blood Urea Nitrogen 16 MG/DL Creatinine 0.88 MG/DL Estimat Glomerular Filtration 87 ML/MIN Rate Random Glucose 68 MG/DL Lactic Acid Level 1.1 mmol/L Calcium Level 8.3 MG/DL Troponin I 1.08 NG/ML B-Type Natriuretic Peptide 39 PG/ML MDM Medical Decision Making Medical Screen Exam Complete: Yes Emergency Medical Condition: Yes Medical Record Reviewed: Yes Differential Diagnosis NSTEMI, unstable angina, coronary vasospasm, PE, PTX, aortic dissection, pericarditis, myocarditis, endocarditis, PNA, esophageal disease, aneurysm, musculoskeletal etiologies, anxiety, cocaine/sympathomimetic abuse Narrative Course EKG reveals a sinus tachycardia with a rate of [address] elevation or T-wave flattening or inversion consistent with acute ischemic change Troponin is 1.08 CBC & BMP Diagram 05/28/16 05:20 Last 24 hours Impressions Chest X-Ray 05/28/1614 Signed Impressions: Service Date/Time: Saturday, May 28, 2016 05:26 - CONCLUSION: 1. Cardiomegaly. No acute pulmonary disease. Gerardo Jaimes MD BNP 39 Lactic acid 1.1 Influenza study negative The patient has received Rocephin and azithromycin. Blood cultures drawn. He received about 300 cc normal saline. Nitroglycerin, metoprolol and aspirin given. Lovenox ordered. 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 Critical Care Narrative Aggregate critical care time was 40 minutes. Time to perform other separately billable procedures was not included in the critical care time. My time did not include minutes spent treating any other patients simultaneously or on activities that did not directly contribute to the patient's treatment. The services I provided to this patient were to treat and/or prevent clinically significant deterioration that could result in: Hypoxia, respiratory failure, coronary ischemia I provided critical care services requiring my management, as noted below: Chart data review, documentation time, medication orders and management, vital sign assessments/reviewing monitor data, ordering and reviewing lab tests, ordering and interpreting/reviewing x-rays and diagnostic studies, care of the patient and discussion of the patient with the admitting physicians. Sepsis Criteria SIRS Criteria (2 or more): Temp > 100.9 or < 96.8, Heart rate over 90 Sepsis Criteria (SIRS+source): Infect source susp/known Diagnosis Primary Impression: NSTEMI (non-ST elevated myocardial infarction) Additional Impressions: COPD exacerbation Sepsis due to pneumonia Admitting Information Admitting Physician Requests: Chencho Ray MD May 28, 2016 05:22
[2016-05-28 05:30] LABS: AUTOMATED NEUTROPHIL # 6.1 TH/MM3 (1.8-7.7); BASOPHIL # 0.1 TH/MM3 (0-0.2); BASOPHIL % 0.6 % (0.0-2.0); EOSINOPHIL % 0.3 % (0.0-4.0); HEMATOCRIT 40.4 % (39.0-51.0); HEMO FLAGS DIFF FINAL; LYMPH % 24.5 % (9.0-44.0); LYMPHOCYTE # 2.2 TH/MM3 (1.0-4.8); MEAN CELL VOLUME 90.8 FL (80.0-100.0); MEAN CORPUSCULAR HEMOGLOBIN 29.7 PG (27.0-34.0); MEAN CORPUSCULAR HGB CONC 32.7 % (32.0-36.0); MONO % 8.2 % (0.0-8.0); NEUT % 66.4 % (16.0-70.0); PLATELET COUNT 221 TH/MM3 (150-450); RED BLOOD COUNT 4.45 MIL/MM3 (4.50-5.90); RED CELL DISTRIBUTION WIDTH 16.1 % (11.6-17.2); WHITE BLOOD COUNT 9.2 TH/MM3 (4.0-11.0)
[2016-05-28] MEDS ORDERED: cefTRIAXone INJ 1,000 MG in SODIUM CHLORIDE 0.9% INJ 100 ML IV ONE (05:30)
[2016-05-28] MEDS ORDERED: ACETAMINOPHEN 325 MG TAB PO ONE (05:45)
[2016-05-28] MEDS: RESP: ALBUTEROL 2.5 MG/IPRATROPIUM 0.5 MG NEB (SCH) INH ×2 (05:46→05:47)
[2016-05-28 05:50] LABS: BICARBONATE 33.8 MEQ/L (21.0-32.0); POTASSIUM 4.2 MEQ/L (3.5-5.1)
--- NOTE | 2016-05-28 05:56 | RADRPT ---
EXAM DATE/TIME: 05/28/2016 05:26 [facility] COMPARISON: CT PULMONARY ANGIOGRAM, April 15, 2016, 14:51. CHEST SINGLE AP, April 15, 2016, 12:04. INDICATIONS : Short of breath. MEDICAL HISTORY : Chronic obstructive pulmonary disease. SURGICAL HISTORY : Coronary artery stent. ENCOUNTER: Initial ACUITY: 1 day PAIN SCORE: 0/10 LOCATION: Bilateral chest FINDINGS: The cardiac silhouette is enlarged in transverse diameter. The lungs are free of acute parenchymal op acity. No effusions are identified. The hilar structures are prominent but unchanged from the prior e xam. Calcified granuloma is present in the left lung. CONCLUSION: 1. Cardiomegaly. No acute pulmonary disease. Gerardo Jaimes MD on May 28, 2016 at 5:54 Board Certified Radiologist. This report was verified electronically.
[2016-05-28] MEDS ORDERED: ENOXAPARIN SODIUM 120 MG/0.8 ML SYRINGE SQ ONE (06:00)
[2016-05-28] MEDS ORDERED: NITROGLYCERIN 2% OINT 1 GM PACKET TOP ONE (06:00)
[2016-05-28] MEDS ORDERED: ASPIRIN 325 MG TAB PO ONE (06:00)
[2016-05-28] MEDS: METOPROLOL TARTRATE 5 MG/5 ML VIAL IVS SCH ×3 (06:05→06:10)
[2016-05-28] MEDS ORDERED: NITROGLYCERIN 0.4 MG SL 25 TABS/BTL SL PRN (06:30)
[2016-05-28] MEDS ORDERED: SODIUM CHLORIDE 0.9% FLUSH 5 ML FLUSH FLUSH PRN (06:30)
[2016-05-28] MEDS ORDERED: NALOXONE HCL 0.4 MG/ML AMP IV PRN (06:30)
[2016-05-28] MEDS: LEVOFLOXACIN 750 MG PREMIX INJ 150 ML IV SCH (06:42)
[2016-05-28] MEDS ORDERED: GLUCAGON 1 MG/ML VIAL OTHER PRN (08:15)
[2016-05-28] MEDS ORDERED: DEXTROSE 50% IN WATER 50 ML VIAL(D50) IV PUSH PRN (08:15)
--- NOTE | 2016-05-28 08:18 | HHI.HP ---
[facility] Service [facility] Primary Care Physician [facility] Admission Diagnosis NSTEMI, Sepsis (PNA), COPD Exacerbation Diagnoses: (1) NSTEMI (non-ST elevated myocardial infarction) Diagnosis: Principal (2) COPD exacerbation Diagnosis: Principal Chief Complaint: sob Travel History International Travel<30 Days: No Contact w/Intl Traveler <30 Da: No Traveled to Known Affected Are: No History of Present Illness patient is a 65 y/o male with history of COPD and CAD presented to ER with sob. he says that sob started five days ago and despite using his nebulizer got worse. he has productive cough of whitish sputum and reports some fever and chills at home. he had some chest discomfort along with sob. he denies any nausea or vomiting.of note he's using home oxygen. Review of Systems Constitutional: COMPLAINS OF: Fever, Chills, DENIES: Weight loss, Night Sweats Eyes: DENIES: Blurred vision, Diplopia, Vision loss, Double Vision Ears, nose, mouth, throat: DENIES: Tinnitus, Vertigo, Throat pain, Epistaxis Respiratory: COMPLAINS OF: Cough, Sputum production, Shortness of breath, DENIES: Apneas, Snoring, Wheezing, Hemoptysis Cardiovascular: COMPLAINS OF: Chest pain, DENIES: Palpitations, Syncope, Dyspnea on Exertion, PND, Lower Extremity Edema, Orthopnea, Claudication Gastrointestinal: DENIES: Abdominal pain, Black stools, Bloody stools, Constipation, Diarrhea, Nausea, Vomiting, Difficulty Swallowing, Anorexia Genitourinary: DENIES: Urinary frequency, Urgency, Hematuria, Dysuria Musculoskeletal: DENIES: Joint pain, Muscle aches, Stiffness, Joint Swelling Integumentary: DENIES: Rash Neurologic: DENIES: Abnormal gait, Headache, Localized weakness, Paresthesias, Seizures, Speech Problems, Tremor, Poor Balance Psychiatric: DENIES: Anxiety, Confusion, Mood changes, Depression, Hallucinations, Agitation, Suicidal Ideation, Homicidal Ideation, Delusions Past Family Social History Past Medical History CAD hypertension diabetes mellitus dyslipidemia COPD Past Surgical History cholecystectomy Reported Medications Atrovent HFA 12.9 GM Inh (Ipratropium [place]) 17 Mcg/Act Aer 2 Puff INH QID Symbicort Inh (Budesonide/Formoterol Fumarate) 160-4.5 Mcg/Act Aero 2 Puff INH Q12HR Spiriva [place] (Tiotropium Inh) 18 Mcg Cap 18 Mcg INH DAILY 1 capsule = 18 mcg Prednisone 20 Mg Tab 20 Mg PO BID Potassium Chloride ER (Potassium Chloride) 20 Meq Tab 20 Meq PO DAILY Lasix (Furosemide) 40 Mg Tab 40 Mg PO BID@18 Reported Novolin 70-30 Inj (Insulin Human Isoph/Insulin Regular) 1,000 Unit/10 Ml Vial 54 Units SQ AC DINNER Novolin 70-30 Inj (Insulin Human Isoph/Insulin Regular) 1,000 Unit/10 Ml Vial 46 Units SQ AC BREAKFAST Omeprazole 20 Mg Cap 20 Mg PO ACHS Metformin (Metformin HCl) 1,000 Mg Tab 1,000 Mg PO BIDPC With meals Magnesium Oxide 400 Mg Tab 400 Mg PO DAILY Lovastatin 40 Mg Tab 40 Mg PO DAILY Lisinopril 2.5 Mg Tab 2.5 Mg PO DAILY Latanoprost Opth Drops (Latanoprost) 0.005% Drops 1 Drop RIGHT EYE HS Refrigerate until opened. Ibuprofen 800 Mg Tab 800 Mg PO BID PRN Gabapentin 300 Mg Cap 300 Mg PO HS Carbidopa-Levodopa 25-100 Mg Tab 1 Tab PO HS Brimonidine Opth Drops (Brimonidine Tartrate) 0.15% Soln 1 Drop RIGHT EYE BID Aspirin 81 Mg Chew 81 Mg CHEW DAILY Acetaminophen 325 Mg Tab 325 Mg PO DAILY PRN Allergies: Coded Allergies: No Known Allergies (Verified , 05/28/16) Active Ordered Medications Current Medications IV Flush (NS Flush) 2 ml UNSCH PRN IVF FLUSH AFTER USING IV ACCESS; Start 05/28 at 05:15; Stop 05/28/16 at 06:37; Status DC Methylprednisolone Sodium Succinate (SoluMEDROL INJ) 125 mg ONCE ONCE IVP Last administered on 05/28/16 05:34; Start 05/28/16 at 05:15; Stop 05/28/16 at 05:16; Status DC Albuterol/ Ipratropium 1 ampule 1 ampule Q15M INH Last administered on 05:47; Start 05/28/16 at 05:15; Stop 05/28/16 at 05:46; Status DC Sodium Chloride 1,000 ml @ 1,000 mls/hr Q1H ONCE IV Last administered on 05:35; Start 05/28/16 at 05:17; Stop 05/28/16 at 06:24; Status DC Ceftriaxone Sodium/Sodium Chloride (Rocephin Inj/NS Inj) 100 ml @ 200 mls/hr ONCE ONCE IV Last administered on 05/28/16 05:35; Start 05/28/16 at 05:30; Stop 05/28/16 at 05:59; Status DC Azithromycin (Zithromax) 500 mg DAILY PO ; Start 05/28/16 at 09:00 Acetaminophen (Tylenol) 650 mg ONCE ONCE PO Last administered on 05/28/16 05: 57; Start 05/28/16 at 05:45; Stop 05/28/16 at 05:46; Status DC Aspirin (Aspirin) 325 mg ONCE ONCE PO Last administered on 05/28/16 06:06; Start 05/28/16 at 06:00; Stop 05/28/16 at 06:04; Status DC Nitroglycerin (Nitroglycerin 2% Oint) 1 inch ONCE ONCE TOP Last administered on 05/28/16 06:07; Start 05/28/16 at 06:00; Stop 05/28/16 at 06:04; Status DC Metoprolol Tartrate (Lopressor Inj) 5 mg Q5M IVS Last administered on 06:06; Start 05/28/16 at 06:00; Stop 05/28/16 at 06:11; Status DC Enoxaparin Sodium (Lovenox Inj) 110 mg ONCE ONCE SQ Last administered on 06:07; Start 05/28/16 at 06:00; Stop 05/28/16 at 06:04; Status DC IV Flush (NS Flush) 2 ml UNSCH PRN FLUSH FLUSH AFTER USING IV ACCESS; Start at 06:30 IV Flush (NS Flush) 2 ml BID FLUSH ; Start 05/28/16 at 09:00 Enoxaparin Sodium (Lovenox Inj) 40 mg Q24H SQ ; Start 05/28/16 at 09:00 Naloxone HCl (Narcan Inj) 0.4 mg UNSCH PRN IV SEE LABEL COMMENTS; Start at 06:30 Nitroglycerin (Nitrostat Sl) 0.4 mg Q5M PRN SL CHEST PAIN; Start 05/28/16 at 06 :30 Aspirin (Aspirin Chew) 81 mg DAILY CHEW ; Start 05/28/16 at 09:00 Carbidopa/Levodopa (Sinemet 25-100 Mg) 1 tab HS PO ; Start 05/28/16 at 21:00 Furosemide (Lasix) 40 mg BID@09,18 PO ; Start 05/28/16 at 09:00 Pravastatin Sodium 40 mg 40 mg DAILY PO ; Start 05/28/16 at 09:00 Levofloxacin/ Dextrose (Levaquin 750 Mg Premix Inj) 150 ml @ 100 mls/hr Q24H IV Last administered on 05/28/16t 06:42; Start 05/28/16 at 06:00 Family History diabetes in mother. Social History trying to quit smoking. doesn't drink. Physical Exam Vital Signs Vital Signs Date Time Temp Pulse Resp B/P Pulse Ox O2 Delivery O2 Flow Rate FiO2 05/28/16 07:52 98 50 05/28/16 07:19 96 20 107/59 99 BiPAP 60 05/28/16 06:31 92 20 116/61 99 BiPAP 60 05/28/16 06:19 101.7 05/28/16 06:19 99 20 131/65 99 BiPAP 60 05/28/16 05:46 109 05/28/16 05:19 99 BiPAP 60 05/28/16 05:19 99 BiPAP 60 05/28/16 05:15 76 Nasal Cannula 6 05/28/16 05:15 125 05/28/16 05:15 102.0 05/28/16 05:10 95 60 05/28/16 05:09 125 30 141/76 95 05/28/16 05:01 100.7 132 36 144/72 76 Nasal Cannula 3 Physical Exam GENERAL: This is a well-nourished, well-developed patient, in no apparent distress. SKIN: No rashes, ecchymoses or lesions. Cool and dry. HEAD: Atraumatic. Normocephalic. No temporal or scalp tenderness. EYES: Pupils equal round and reactive. Extraocular motions intact. No scleral icterus. No injection or drainage. ENT: Nose without bleeding, purulent drainage or septal hematoma. Throat without erythema, tonsillar hypertrophy or exudate. Uvula midline. Airway patent. NECK: Trachea midline. No JVD or lymphadenopathy. Supple, nontender, no meningeal signs. CARDIOVASCULAR: Regular rate and rhythm without murmurs, gallops, or rubs. RESPIRATORY: Clear to auscultation. Breath sounds equal bilaterally. No wheezes , rales, or rhonchi. GASTROINTESTINAL: Abdomen soft, non-tender, nondistended. No hepato-splenomegaly , or palpable masses. No guarding. MUSCULOSKELETAL: Extremities without clubbing, cyanosis, or edema. No joint tenderness, effusion, or edema noted. No calf tenderness. Negative Homans sign bilaterally. NEUROLOGICAL: Awake and alert. Cranial nerves II through XII intact. Motor and sensory grossly within normal limits. Five out of 5 muscle strength in all muscle groups. Normal speech. Laboratory Laboratory Tests Test 05/28/16 05:20 White Blood Count 9.2 Red Blood Count 4.45 Hemoglobin 13.2 Hematocrit 40.4 Mean Corpuscular Volume 90.8 Mean Corpuscular Hemoglobin 29.7 Mean Corpuscular Hemoglobin 32.7 Concent Red Cell Distribution Width 16.1 Platelet Count 221 Mean Platelet Volume 7.8 Neutrophils (%) (Auto) 66.4 Lymphocytes (%) (Auto) 24.5 Monocytes (%) (Auto) 8.2 Eosinophils (%) (Auto) 0.3 Basophils (%) (Auto) 0.6 Neutrophils # (Auto) 6.1 Lymphocytes # (Auto) 2.2 Monocytes # (Auto) 0.8 Eosinophils # (Auto) 0.0 Basophils # (Auto) 0.1 CBC Comment DIFF FINAL Differential Comment Sodium Level 137 Potassium Level 4.2 Chloride Level 98 Carbon Dioxide Level 33.8 Anion Gap 5 Blood Urea Nitrogen 16 Creatinine 0.88 Estimat Glomerular Filtration 87 Rate Random Glucose 68 Lactic Acid Level 1.1 Calcium Level 8.3 Troponin I 1.08 B-Type Natriuretic Peptide 39 Date/Time Procedure Status Source Growth 05/28/16 05:55 Influenza Types A,B Antigen (RADHA) - Final Complete Nasal Aspirate NEGATIVE FOR FLU A AND B ANTIGEN.... 05/28/16 05:20 Aerobic Blood Culture Received Blood Peripheral Pending 05/28/16 05:20 Anaerobic Blood Culture Received Blood Peripheral Pending Result Diagram: 05/28/1651905/28/16519 Imaging Last Impressions Chest X-Ray 05/28/16513 Signed Impressions: Service Date/Time: Saturday, May 28, 2016 05:26 - CONCLUSION: 1. Cardiomegaly. No acute pulmonary disease. Gerardo Jaimes MD EKG; sinus tachycardia Assessment and Plan Assessment and Plan A/P - NSTEMI continue with lovenox ,aspirin and statin- will trend the cardiac enzymes and consult cardiology. -acute on chronic hypoxemic respiratory failure due to COPD exacerbation continue neb treatment and IV steroid along with antibiotics- follow the cultures- will consult pulmonary -diabetes mellitus; hold metformin- resume home insulin regimen soon- accu- check with SSI -hypertension/ dyslipidemia; resume home meds -DVT prophylaxis; on lovenox Discussed Condition With the patient. Physician Certification 2 Midnight Certification Type: Admission for Inpatient Services Order for Inpatient Services The services are ordered in accordance with Medicare regulations or non- Medicare payer requirements, as applicable. In the case of services not specified as inpatient-only, they are appropriately provided as inpatient services in accordance with the 2-midnight benchmark. Estimated LOS (days): 2 days is the estimated time the patient will need to remain in the hospital, assuming treatment plan goals are met and no additional complications. Post-Hospital Plan: Home Meaghan Rolon MD May 28, 2016 08:18
[2016-05-28] MEDS ORDERED: PILL SPLITTER OTHER PRN (08:45)
[2016-05-28] MEDS ORDERED: ENOXAPARIN SODIUM 40 MG/0.4 ML SYRINGE SQ SCH (09:00)
[2016-05-28] MEDS: LISINOPRIL 5 MG TAB PO SCH (09:00)
--- NOTE | 2016-05-28 09:27 | EKG ---
Date Performed: 05/28/2016 Time Performed: 05:15:17 PTAGE: 65 years EKG: SINUS TACHYCARDIA ABNORMAL RHYTHM ECG PREVIOUS TRACING : 04/16/2016 02.49 Compared to prior tracing no significant change DOCTOR: Jimmie Moeller Interpretating Date/Time 05/28/2016 09:25:13
[2016-05-28] MEDS: FUROSEMIDE 40 MG TAB PO SCH ×2 (09:47→17:28)
[2016-05-28] MEDS: ASPIRIN 81 MG CHEW TAB CHEW SCH (09:47)
[2016-05-28] MEDS: PRAVASTATIN SOD 40 MG TAB PO SCH (09:47)
[2016-05-28] MEDS: AZITHROMYCIN 250 MG TAB PO SCH (09:48)
[2016-05-28] MEDS: SODIUM CHLORIDE 0.9% FLUSH 5 ML FLUSH FLUSH SCH ×2 (10:12→19:38)
--- NOTE | 2016-05-28 10:24 | MB ---
cc: [facility] DO DATE OF CONSULTATION: 05/28/2016 PRIMARY CARE PHYSICIAN [facility] REASON FOR CONSULTATION Elevated troponin. HISTORY OF PRESENT ILLNESS Catracho Mcgowan is a pleasant 65-year-old male who presents to [facility] Emergency Room on May 28, 2016 due to shortness of breath. He states that the shortness of breath has been going on for 5 days. During this he has used his nebulizer with little relief. He has also had a productive cough which has whitish sputum. He also has had fevers and chills over the past five days intermittently at home. In asking him about chest pain he states that he does get some chest discomfort when he coughs otherwise no pressure or pain throughout the chest region. He is usually on oxygen at home and has been using that pretty consistently. PAST MEDICAL HISTORY 1. Coronary artery disease with a history of myocardial infarction (2012). 2. COPD with home oxygen use. 3. Hypertension. 4. Diabetes mellitus. 5. Dyslipidemia. PAST SURGICAL HISTORY 1. Cardiac catheterization (June 04, 2012): Left main short with no significant disease. LAD small vessel with a mid 70% stenosis; first diagonal artery is diffusely diseased. Left circumflex has mild disease; first obtuse marginal has significant diffuse disease. RCA has a distal area of 70%, ventricular branch about 90% at the ostium and then becomes completely occluded distally. Angioplasty of the ventricular branch of the right coronary artery. Intervention of the distal RCA with a Xience drug-eluting stent (2.5 x 12). 2. Cholecystectomy. ALLERGIES No known drug allergies. MEDICATIONS 1. Aspirin 81 mg daily. 2. Symbicort two puffs every 12 hours. 3. Prednisone 20 mg b.i.d. 4. Brimonidine ophthalmic drops right eye b.i.d. 5. Lisinopril 2.5 mg daily. 6. Gabapentin 300 mg every night. 7. Atrovent two puffs q.i.d. 8. Spiriva 18 mcg daily. 9. Metformin 1000 mcg b.i.d. 10.Carbidopa-levodopa 25/100 every night. 11.Lovastatin 40 mg daily. 12.Novolin 70/30, 46 units with breakfast, 54 units with dinner. 13.Lasix 40 mg b.i.d. 14.Latanoprost one drop right eye every night. 15.Omeprazole 20 mg with meals and at night. 16.Magnesium 400 mg daily. 17.Potassium 20 mEq daily. FAMILY HISTORY Denies premature coronary artery disease or sudden cardiac within the family. SOCIAL HISTORY The patient previously smoked 2-3 packs a day, is attempting to cut down, currently smoking 2-3 cigarettes a day. Denies alcohol or drug abuse. REVIEW OF SYSTEMS 14 systems were reviewed including osteopathic. Pertinent positives and negatives as above, otherwise negative. PHYSICAL EXAMINATION VITAL SIGNS: Temperature 101.7 with a max of 102. Heart rate 96, blood pressure 107/59, respirations 20, pulse ox 99% on BiPAP. GENERAL: In general the patient appears well in no acute distress, alert, awake and oriented x3. HEENT: Extraocular muscles are intact. Mucous membranes are moist. NECK: Supple. No JVD at 45 degrees. No carotid bruits heard bilaterally. Carotid upstroke is brisk in nature. HEART: Regular rate and rhythm. Positive first and second heart sounds with no murmurs, gallops or rubs. LUNGS: Essentially no air movement. No overt wheezes noted. No rales noted. ABDOMEN: Soft, nontender, nondistended. No organomegaly noted. EXTREMITIES: No clubbing, cyanosis or edema. Femoral and distal pulses intact bilaterally. NEUROLOGIC: No focal deficits. SKIN: Warm, dry and intact. MUSCULOSKELETAL: Osteopathically, no kyphoscoliosis, lordosis or paraspinal tender points. LABORATORY Hemoglobin 13.2, hematocrit 40.4, platelets 221. Potassium 4.1, BUN 16, creatinine 0.88. Troponin 1.08. EKG Electrocardiogram (May 28, 2016 at 0515): Sinus tachycardia at 118 beats per minute, no acute ST-T wave changes. IMPRESSIONS 1. Non-ST segment elevation myocardial infarction, most likely type 2 due to chronic obstructive pulmonary disease exacerbation with hypoxia. 2. Hypoxia due to COPD exacerbation. 3. Acute on chronic respiratory failure. 4. History of coronary artery disease with previous RCA stent (June 04, 2012, Xience drug-eluting stent 2.5 x 12). 5. COPD, on home oxygen. 6. Tobacco abuse. 7. Hypertension. 8. Diabetes mellitus. 9. Dyslipidemia. RECOMMENDATIONS 1. Mr. Mcgowan appears to have a COPD exacerbation which may stress the heart and allow for spill of his troponins. 2. He has had no chest pain and currently does not appear to be in congestive heart failure, but more likely a respiratory cause. 3. Will continue to treat him medically at this time. 4. Once he is through his acute illness will discuss with him consideration of cardiac catheterization versus stress testing versus medical management. 5. Will check a 2-D echo to look at his overall left ventricular function and possible valvulopathies. 6. Will continue to follow his troponins for a series of 3. 7. Will continue him on aspirin, pravastatin, Lovenox, SAGAR inhibitor. Will hold off on beta sebastien due to his extensive COPD and current acute exacerbation. Thank you for allowing me to see Catracho Mcgowan. If there are any questions, please do not hesitate to call. Iban Florian DO VGP/BT /9:40 AM /10:01 AM
[2016-05-28] MEDS: RESP: ALBUTEROL 2.5 MG/IPRATROPIUM 0.5 MG NEB (SCH) NEB ×4 (10:26→19:36)
[2016-05-28] MEDS: INSULIN ASPART SUPPLEMENTAL SCALE SQ SCH ×3 (11:11→21:25)
[2016-05-28 11:58] LABS: CKMB 7.3 NG/ML (0.5-3.6)
[2016-05-28] MEDS: methylPREDNISolone SOD SUCC 40 MG/1 ML VIAL IV PUSH SCH ×2 (13:31→22:33)
[2016-05-28] MEDS: ENOXAPARIN SODIUM 120 MG/0.8 ML SYRINGE SQ SCH (17:27)
--- NOTE | 2016-05-28 17:43 | EKG ---
Date Performed: 05/28/2016 Time Performed: 11:08:11 PTAGE: 65 years EKG: Sinus rhythm Compared to prior tracing no significant change NORMAL ECG PREVIOUS TRACING : 05/28/2016 05.15 DOCTOR: Jimmie Moeller Interpretating Date/Time 05/28/2016 17:41:53
[2016-05-28 20:44] LABS: BLOOD GAS BASE EXCESS 9.5 mmol/L (-2-2); BLOOD GAS HCO3 35 mmol/L (22-26); BLOOD GAS O2 HGB SATURATION 85 % (90-100); BLOOD GAS OXYGEN CONTENT 16.4 Vol % (12.0-20.0); BLOOD GAS PCO2 65 mmHg (38-42); BLOOD GAS PO2 55 mmHG (61-120); BLOOD GAS TOTAL HGB 13.8 G/DL (12.0-16.0); TEMP CORR TO 98.6
[2016-05-28 20:45] LABS: CRITICAL VALUE YES; DRAW SITE LT RADIAL; LITER FLOW 5 L/M; NUMBER OF ARTERIAL PUNCTURES 1; OXYGEN DEVICE NASAL CANNULA; STAT NO; ULNAR PULSE PRESENT
[2016-05-28] MEDS: CARBIDOPA/LEVODOPA 25 MG/100 MG TAB PO SCH (21:11)
--- NOTE | 2016-05-28 21:16 | MB ---
cc: JON WEBB DATE OF CONSULTATION: 05/28/2016 REASON FOR CONSULTATION: Sleep disorder breathing. HISTORY OF PRESENT ILLNESS Mr. Mcgowan is a 65-year-old male who presents to the emergency room with increasing shortness of breath for four to five days. The patient has known history of COPD, worsening shortness of breath, failing to respond to home therapy. The patient as well has a history of obstructive sleep apnea. He is followed by the [facility] for same. PAST MEDICAL HISTORY: 1. COPD. 2. Coronary artery disease. 3. Obstructive sleep apnea. 4. Diabetes mellitus. 5. Hypertension. 6. Hyperlipidemia. 7. Previous cholecystectomy. MEDICATIONS AT HOME: 1. Symbicort. 2. Albuterol p.r.n. 3. Prednisone 4. Aspirin 5. BiPAP therapy. 6. Lisinopril 7. Gabapentin 8. Atrovent 9. Spiriva 10. Metformin 11. Carbidopa/levadopa. 12. Lovastatin. 13. Insulin. 14. Lasix. 15. Omeprazole. 16. Magnesium 17. Potassium FAMILY HISTORY: Positive for heart disease, otherwise unremarkable. SOCIAL HISTORY: A long smoking history, smoking 2-3 packs a day, started to slow down at present, has smoked for over 30 years. REVIEW OF SYSTEMS 12-point review of systems as per HPI and past history otherwise negative. PHYSICAL EXAMINATION: The patient is alert. VITAL SIGNS: Temperature 100, respiratory rate 18, blood pressure 110/60, O2 sat 96% on O2 therapy by nasal cannula. HEENT: Exam unremarkable. Eyes without icterus. Neck: Without adenopathy, thyroid enlargement, central trachea. Chest: Without dullness to percussion, clear to auscultation. Cardiac: PMI distant, S1-S2 audible. No murmur, no rub. Abdomen: Lax, audible bowel sounds. Extremities: No clubbing, cyanosis or edema. Skin: Normal. No lymphadenopathy. LABORATORY DATA: White count 9.2, hemoglobin 13, hematocrit 40, platelet count 22,000. Sodium 137, potassium 4.2, BUN 16, creatinine 0.8. Chest x-ray with cardiomegaly, no acute disease otherwise. IMPRESSION 1. Coronary artery disease, non ST-segment elevation myocardial infarction. 2. COPD. Mild exacerbation. 3. Chronic respiratory failure on home oxygen therapy. 4. Obstructive sleep apnea on CPAP therapy. 5. Hypertension. 6. Diabetes mellitus 7. Hyperlipidemia. 8. Tobacco abuse. PLAN: The patient will be maintained on oxygen therapy, bronchodilator therapy. Intravenous steroids have been initiated and appropriately so. Antibiotic therapy has been started as well. The patient to continue BiPap therapy while in the hospital and continue using his own machine at home will. Will follow his course along with you and depending on progress proceed further. We will check baseline pulmonary function as well as arterial blood gas. I do thank you for asking me to partake in Mr. Mcgowan's care. Jon Webb MD WWW/LIZY /8:06 PM /8:18 PM
[2016-05-29] VITALS (14 sets, daily range): BP systolic 95–138; BP diastolic 54–74; PULSE 82–100; RESP 16–24; TEMP 97.9–98.5; O2SAT 90–100
[2016-05-29] MEDS: RESP: ALBUTEROL 2.5 MG/IPRATROPIUM 0.5 MG NEB (SCH) NEB ×7 (00:54→23:51)
[2016-05-29 04:21] LABS: AUTOMATED NEUTROPHIL # 2.9 TH/MM3 (1.8-7.7); BASOPHIL % 0.3 % (0.0-2.0); HEMATOCRIT 38.4 % (39.0-51.0); HEMO FLAGS DIFF FINAL; LYMPH % 17.9 % (9.0-44.0); LYMPHOCYTE # 0.7 TH/MM3 (1.0-4.8); MEAN CELL VOLUME 90.6 FL (80.0-100.0); MEAN CORPUSCULAR HEMOGLOBIN 30.5 PG (27.0-34.0); MEAN CORPUSCULAR HGB CONC 33.6 % (32.0-36.0); MONO % 6.1 % (0.0-8.0); NEUT % 75.7 % (16.0-70.0); PLATELET COUNT 200 TH/MM3 (150-450); RED BLOOD COUNT 4.24 MIL/MM3 (4.50-5.90); RED CELL DISTRIBUTION WIDTH 15.8 % (11.6-17.2); WHITE BLOOD COUNT 3.8 TH/MM3 (4.0-11.0)
[2016-05-29 04:44] LABS: BICARBONATE 36.1 MEQ/L (21.0-32.0); HDL CHOLESTEROL 33.5 MG/DL (40.0-60.0); POTASSIUM 4.4 MEQ/L (3.5-5.1)
[2016-05-29] MEDS: LEVOFLOXACIN 750 MG PREMIX INJ 150 ML IV SCH (06:14)
[2016-05-29] MEDS: methylPREDNISolone SOD SUCC 40 MG/1 ML VIAL IV PUSH SCH ×3 (06:15→21:40)
[2016-05-29] MEDS: ENOXAPARIN SODIUM 120 MG/0.8 ML SYRINGE SQ SCH ×2 (06:15→17:06)
[2016-05-29] MEDS: INSULIN ASPART SUPPLEMENTAL SCALE SQ SCH ×4 (06:27→21:00)
--- NOTE | 2016-05-29 08:00 | HHI.PR ---
Subjective Remarks f/u; NSTEMI/ COPD exacerbation looks slightly more comfortable today. sob has improved. denies chest pain. no fever. Objective Vitals Vital Signs Date Time Temp Pulse Resp B/P Pulse Ox O2 Delivery O2 Flow Rate FiO2 05/29/16 07:51 93 Nasal Cannula 5.00 05/29/16 07:26 BiPAP 05/29/16 07:00 BiPAP 05/29/16 07:00 22 97 BiPAP 05/29/16 07:00 100 16 99/69 100 Nasal Cannula 3 05/29/16 06:12 82 16 119/70 97 BiPAP 05/29/16 04:04 100 50 05/29/16 00:54 100 1.00 50 05/28/16 23:00 94 18 128/79 92 Nasal Cannula 5 05/28/16 19:12 95 20 124/70 91 Nasal Cannula 5 05/28/16 16:07 97.8 91 20 143/70 96 Nasal Cannula 3 05/28/16 14:32 98.0 89 20 124/81 96 Nasal Cannula 05/28/16 12:55 94 20 117/69 97 BiPAP 05/28/16 11:00 22 97 BiPAP 05/28/16 11:00 86 22 98 BiPAP 6 50 05/28/16 11:00 97 BiPAP 6 50 05/28/16 11:00 98.0 86 22 107/60 97 BiPAP I/O 05/28/16 05/28/16 05/28/16 05/29/16 05/29/16 05/29/16 07:00 15:00 23:00 07:00 15:00 23:00 Intake Total 30 ml 240 ml 180 ml Output Total 1600 ml 600 ml Balance 30 ml -1360 ml -420 ml Intake Oral 30 ml 240 ml 180 ml Output Urine Total 1600 ml 600 ml # Voids 3 1 # Bowel Movements 0 0 Result Diagram: 05/29/1635605/29/16356 Imaging Last Impressions Chest X-Ray 05/28/16513 Signed Impressions: Service Date/Time: Saturday, May 28, 2016 05:26 - CONCLUSION: 1. Cardiomegaly. No acute pulmonary disease. Gerardo Jaimes MD Objective Remarks GENERAL: This is a well-nourished, well-developed patient, in no apparent distress. CARDIOVASCULAR: Regular rate and regular rhythm without murmurs, gallops, or rubs. RESPIRATORY: diminished air entry with mild bilateral wheezing GASTROINTESTINAL: Abdomen soft, non-tender, nondistended. Normal, active bowel sounds MUSCULOSKELETAL: Extremities without clubbing, cyanosis, or edema. NEURO: Alert & Oriented x4 to person, place, time, situation. Moves all ext x4 Procedures none Medications and IVs Current Medications IV Flush (NS Flush) 2 ml UNSCH PRN IVF FLUSH AFTER USING IV ACCESS; Start 05/28 at 05:15; Stop 05/28/16 at 06:37; Status DC Methylprednisolone Sodium Succinate (SoluMEDROL INJ) 125 mg ONCE ONCE IVP Last administered on 05/28/16 05:34; Start 05/28/16 at 05:15; Stop 05/28/16 at 05:16; Status DC Albuterol/ Ipratropium 1 ampule 1 ampule Q15M INH Last administered on 05:47; Start 05/28/16 at 05:15; Stop 05/28/16 at 05:46; Status DC Sodium Chloride 1,000 ml @ 1,000 mls/hr Q1H ONCE IV Last administered on 05:35; Start 05/28/16 at 05:17; Stop 05/28/16 at 06:24; Status DC Ceftriaxone Sodium/Sodium Chloride (Rocephin Inj/NS Inj) 100 ml @ 200 mls/hr ONCE ONCE IV Last administered on 05/28/16 05:35; Start 05/28/16 at 05:30; Stop 05/28/16 at 05:59; Status DC Azithromycin (Zithromax) 500 mg DAILY PO Last administered on 05/28/16 09:48; Start 05/28/16 at 09:00 Acetaminophen (Tylenol) 650 mg ONCE ONCE PO Last administered on 05/28/16 05: 57; Start 05/28/16 at 05:45; Stop 05/28/16 at 05:46; Status DC Aspirin (Aspirin) 325 mg ONCE ONCE PO Last administered on 05/28/16 06:06; Start 05/28/16 at 06:00; Stop 05/28/16 at 06:04; Status DC Nitroglycerin (Nitroglycerin 2% Oint) 1 inch ONCE ONCE TOP Last administered on 05/28/16 06:07; Start 05/28/16 at 06:00; Stop 05/28/16 at 06:04; Status DC Metoprolol Tartrate (Lopressor Inj) 5 mg Q5M IVS Last administered on 06:06; Start 05/28/16 at 06:00; Stop 05/28/16 at 06:11; Status DC Enoxaparin Sodium (Lovenox Inj) 110 mg ONCE ONCE SQ Last administered on 06:07; Start 05/28/16 at 06:00; Stop 05/28/16 at 06:04; Status DC IV Flush (NS Flush) 2 ml UNSCH PRN FLUSH FLUSH AFTER USING IV ACCESS; Start at 06:30 IV Flush (NS Flush) 2 ml BID FLUSH Last administered on 05/28/16 19:38; Start 05/28/16 at 09:00 Enoxaparin Sodium (Lovenox Inj) 40 mg Q24H SQ ; Start 05/28/16 at 09:00; Stop at 09:00; Status DC Naloxone HCl (Narcan Inj) 0.4 mg UNSCH PRN IV SEE LABEL COMMENTS; Start at 06:30 Nitroglycerin (Nitrostat Sl) 0.4 mg Q5M PRN SL CHEST PAIN; Start 05/28/16 at 06 :30 Aspirin (Aspirin Chew) 81 mg DAILY CHEW Last administered on 05/28/16 09:47; Start 05/28/16 at 09:00 Carbidopa/Levodopa (Sinemet 25-100 Mg) 1 tab HS PO Last administered on 21:11; Start 05/28/16 at 21:00 Furosemide (Lasix) 40 mg BID@09,18 PO Last administered on 05/28/16 17:28; Start 05/28/16 at 09:00 Pravastatin Sodium 40 mg 40 mg DAILY PO Last administered on 05/28/16 09:47; Start 05/28/16 at 09:00 Levofloxacin/ Dextrose (Levaquin 750 Mg Premix Inj) 150 ml @ 100 mls/hr Q24H IV Last administered on 05/29/16 06:14; Start 05/28/16 at 06:00 Enoxaparin Sodium (Lovenox Inj) 110 mg Q12H SQ Last administered on 05/29/16 06:15; Start 05/28/16 at 18:00 Albuterol/ Ipratropium (Duoneb Neb) 1 ampule Q4HR NEB NEB Last administered on 05/29/16 07:51; Start 05/28/16 at 08:00 Albuterol Sulfate (Albuterol Neb) 1.25 mg Q2HR NEB PRN NEB SHORTNESS OF BREATH ; Start 05/28/16 at 08:00 Methylprednisolone Sodium Succinate (SoluMEDROL INJ) 40 mg Q8HR IV PUSH Last administered on 05/29/16 06:15; Start 05/28/16 at 14:00 Dextrose (D50w (Vial) Inj) 25 ml UNSCH PRN IV PUSH HYPOGLYCEMIA-SEE COMMENTS; Start 05/28/16 at 08:15 Glucagon (Glucagon Inj) 1 mg UNSCH PRN OTHER HYPOGLYCEMIA-SEE COMMENTS; Start 05/28/16 at 08:15 Insulin Aspart (NovoLOG SUPPLEMENTAL SCALE) 1 ACHS SLIDING SCALE SQ Last administered on 05/29/16 06:27; Start 05/28/16 at 11:00 Lisinopril (Prinivil) 2.5 mg DAILY PO ; Start 05/28/16 at 09:00 Miscellaneous (Pill Splitter) 1 ea UNSCH PRN OTHER SEE LABEL COMMENTS; Start at 08:45 A/P Assessment and Plan A/P - NSTEMI continue with lovenox ,aspirin and statin- cardiology consult appreciated. -acute on chronic hypoxemic respiratory failure due to COPD exacerbation continue neb treatment and IV steroid along with antibiotics- follow the cultures- pulmonary following. -diabetes mellitus; hold metformin- resume home insulin regimen soon-continue accu-check with SSI for now -hypertension/ dyslipidemia; resumed home meds -DVT prophylaxis; on lovenox Meaghan Rolon MD May 29, 2016 08:00
--- NOTE | 2016-05-29 08:34 | PD.CARD.PN ---
Subjective Subjective Remarks No chest pain, shortness of breath mildly better Objective Medications Current Medications Medications (Trade) Dose Ordered Sig/Vale Route Start Time Stop Time Status Last Admin (Zithromax) 500 mg DAILY PO 05/28/16 09:00 05/28/16 09:48 (NS Flush) 2 ml UNSCH PRN FLUSH 05/28/16 06:30 (NS Flush) 2 ml BID FLUSH 05/28/16 09:00 05/28/16 19:38 (Narcan Inj) 0.4 mg UNSCH PRN IV 05/28/16 06:30 (Nitrostat Sl) 0.4 mg Q5M PRN SL 05/28/16 06:30 (Aspirin Chew) 81 mg DAILY CHEW 05/28/16 09:00 05/28/16 09:47 (Sinemet 25-100 Mg) 1 tab HS PO 05/28/16 21:00 05/28/16 21:11 (Lasix) 40 mg BID@09,18 PO 05/28/16 09:00 05/28/16 17:28 Pravastatin Sodium 40 mg 40 mg DAILY PO 05/28/16 09:00 05/28/16 09:47 (Levaquin 750 Mg Premix Inj) 150 ml @ 100 mls/hr Q24H IV 05/28/16 06:00 05/29/16 06:14 (Lovenox Inj) 110 mg Q12H SQ 05/28/16 18:00 05/29/16 06:15 (SoluMEDROL INJ) 40 mg Q8HR IV PUSH 05/28/16 14:00 05/29/16 06:15 (D50w (Vial) Inj) 25 ml UNSCH PRN IV PUSH 05/28/16 08:15 (Glucagon Inj) 1 mg UNSCH PRN OTHER 05/28/16 08:15 (Prinivil) 2.5 mg DAILY PO 05/28/16 09:00 (Pill Splitter) 1 ea UNSCH PRN OTHER 05/28/16 08:45 Vital Signs / I&O Vital Signs Date Time Temp Pulse Resp B/P Pulse Ox O2 Delivery O2 Flow Rate FiO2 05/29/16 07:51 93 Nasal Cannula 5.00 05/29/16 07:26 BiPAP 05/29/16 07:00 BiPAP 05/29/16 07:00 22 97 BiPAP 2/15/17 07:00 100 16 99/69 100 Nasal Cannula 3 05/29/16 06:12 82 16 119/70 97 BiPAP 05/29/16 04:04 100 50 05/29/16 00:54 100 1.00 50 05/28/16 23:00 94 18 128/79 92 Nasal Cannula 5 05/28/16 19:12 95 20 124/70 91 Nasal Cannula 5 05/28/16 16:07 97.8 91 20 143/70 96 Nasal Cannula 3 05/28/16 14:32 98.0 89 20 124/81 96 Nasal Cannula 05/28/16 12:55 94 20 117/69 97 BiPAP 05/28/16 11:00 22 97 BiPAP 05/28/16 11:00 86 22 98 BiPAP 6 50 05/28/16 11:00 97 BiPAP 6 50 05/28/16 11:00 98.0 86 22 107/60 97 BiPAP I/O 05/28/16 05/28/16 05/28/16 05/29/16 05/29/16 05/29/16 07:00 15:00 23:00 07:00 15:00 23:00 Intake Total 30 ml 240 ml 180 ml Output Total 1600 ml 600 ml Balance 30 ml -1360 ml -420 ml Intake Oral 30 ml 240 ml 180 ml Output Urine Total 1600 ml 600 ml # Voids 3 1 # Bowel Movements 0 0 Physical Exam GENERAL: NAD, AAOx3 SKIN: Warm and dry. HEAD: Atraumatic. Normocephalic. EYES: Pupils equal and round. No scleral icterus. No injection or drainage. ENT: No nasal bleeding or discharge. Mucous membranes pink and moist. NECK: Trachea midline. No JVD. CARDIOVASCULAR: Regular rate and rhythm. No murmurs noted RESPIRATORY: No accessory muscle use. Decreased breath sounds, minimal air movement, no rales GASTROINTESTINAL: Abdomen soft, non-tender, nondistended. Hepatic and splenic margins not palpable. MUSCULOSKELETAL: Extremities without clubbing, cyanosis, or edema. No obvious deformities. NEUROLOGICAL: Awake and alert. No obvious cranial nerve deficits. Motor grossly within normal limits. Five out of 5 muscle strength in the arms and legs. Normal speech. PSYCHIATRIC: Appropriate mood and affect; insight and judgment normal. Laboratory Laboratory Tests Test 2/14/05/28/16 05/28/16 05/29/16 11:00 19:15 20:30 03:57 Total Creatine Kinase 419 U/L 382 U/L Creatine Kinase MB 7.3 NG/ML 9.0 NG/ML Creatine Kinase MB % 1.7 % 2.4 % Troponin I 0.72 NG/ML 0.45 NG/ML Blood Gas Puncture Site LT RADIAL Blood Gas Patient Temperature 98.6 Blood Gas HCO3 35 mmol/L Blood Gas Base Excess 9.5 mmol/L Blood Gas Oxygen Saturation 85 % Arterial Blood pH 7.35 Arterial Blood Partial 65 mmHg Pressure CO2 Arterial Blood Partial 55 mmHG Pressure O2 Arterial Blood Oxygen Content 16.4 Vol % Arterial Blood 2.0 % Carboxyhemoglobin Arterial Blood Methemoglobin 2.0 % Blood Gas Hemoglobin 13.8 G/DL Oxygen Delivery Device NASAL CANNULA Blood Gas Liter Flow 5 L/M White Blood Count 3.8 TH/MM3 Red Blood Count 4.24 MIL/MM3 Hemoglobin 12.9 GM/DL Hematocrit 38.4 % Mean Corpuscular Volume 90.6 FL Mean Corpuscular Hemoglobin 30.5 PG Mean Corpuscular Hemoglobin 33.6 % Concent Red Cell Distribution Width 15.8 % Platelet Count 200 TH/MM3 Mean Platelet Volume 8.0 FL Neutrophils (%) (Auto) 75.7 % Lymphocytes (%) (Auto) 17.9 % Monocytes (%) (Auto) 6.1 % Eosinophils (%) (Auto) 0.0 % Basophils (%) (Auto) 0.3 % Neutrophils # (Auto) 2.9 TH/MM3 Lymphocytes # (Auto) 0.7 TH/MM3 Monocytes # (Auto) 0.2 TH/MM3 Eosinophils # (Auto) 0.0 TH/MM3 Basophils # (Auto) 0.0 TH/MM3 CBC Comment DIFF FINAL Differential Comment Sodium Level 136 MEQ/L Potassium Level 4.4 MEQ/L Chloride Level 95 MEQ/L Carbon Dioxide Level 36.1 MEQ/L Anion Gap 5 MEQ/L Blood Urea Nitrogen 23 MG/DL Creatinine 0.90 MG/DL Estimat Glomerular Filtration 85 ML/MIN Rate Random Glucose 232 MG/DL Calcium Level 8.3 MG/DL Triglycerides Level 68 MG/DL Cholesterol Level 98 MG/DL LDL Cholesterol 51 MG/DL HDL Cholesterol 33.5 MG/DL Cholesterol/HDL Ratio 2.92 RATIO Assessment and Plan Problem List: (1) NSTEMI (non-ST elevated myocardial infarction) (2) COPD exacerbation (3) Obstructive sleep apnea (4) GERD (gastroesophageal reflux disease) (5) Hyperlipidemia (6) CAD (coronary artery disease) (7) Tobacco abuse Assessment and Plan 1) Troponins falling, more likely Type 2 due to respiratory status 2) Will undergo pharmacologic nuclear stress in the morning, tune up respiratory status today 3) NPO after midnight 4) Continue medical management of CAD for now, if stress test is positive will discuss with the patient further invasive with cardiac catheterization 5) Spoke to him for greater than 3 minutes about tobacco cessation from a cardio and pulmonary standpoint Iban Siddiqui DO May 29, 2016 08:34
[2016-05-29] MEDS: SODIUM CHLORIDE 0.9% FLUSH 5 ML FLUSH FLUSH SCH ×2 (09:07→21:39)
[2016-05-29] MEDS: AZITHROMYCIN 250 MG TAB PO SCH (09:07)
[2016-05-29] MEDS: PRAVASTATIN SOD 40 MG TAB PO SCH (09:07)
[2016-05-29] MEDS: FUROSEMIDE 40 MG TAB PO SCH ×2 (09:08→17:06)
[2016-05-29] MEDS: LISINOPRIL 5 MG TAB PO SCH (09:08)
[2016-05-29] MEDS: ASPIRIN 81 MG CHEW TAB CHEW SCH (09:08)
--- NOTE | 2016-05-29 13:28 | EC ---
Study Study Date:05/29/2016 STUDY CONCLUSIONS SUMMARY - Procedure narrative: Transthoracic echocardiography. Image quality was poor. Scanning was performed from the parasternal, apical, and subcostal acoustic windows. - Left ventricle: The cavity size was normal. Wall thickness was normal. Systolic function was normal. The estimated ejection fraction was in the range of 50% to 55%. Images were inadequate for LV wall motion assessment. - Aortic valve: Poorly visualized. If LV function is below 40, please consider prescribing an ACEI or ARB or document rationale for non-use. PROCEDURE DATA STUDY STATUS: Elective. Procedure: Transthoracic echocardiography. Image quality was poor. Scanning was performed from the parasternal, apical, and subcostal acoustic windows. Study completion: The patient tolerated the procedure well. Transthoracic echocardiography. M-mode, complete 2D, complete spectral Doppler, and color Doppler. Height: Height: 67in. Weight: Weight: 241.5lb. Body mass index: BMI: 37.9kg/m^2. Body surface area: BSA: 2.19m^2. Patient status: Inpatient. CARDIAC ANATOMY LEFT VENTRICLE: The cavity size was normal. Wall thickness was normal. Systolic function was normal. The estimated ejection fraction was in the range of 50% to 55%. Images were inadequate for LV wall motion assessment. AORTIC VALVE: Poorly visualized. Doppler: Transvalvular velocity was within the normal range. There was no stenosis. No regurgitation. Valve area: 2.62cm^2(VTI). Indexed valve area: 1.2cm^2/m^2 (VTI). Valve area: 2.28cm^2 (Vmax). Indexed valve area: 1.04cm^2/m^2 (Vmax). Mean gradient: 5mm Hg (S). AORTA: Aortic root: The aortic root was normal in size. MITRAL VALVE: Structurally normal valve. Doppler: Transvalvular velocity was within the normal range. There was no evidence for stenosis. No regurgitation. Peak gradient: 3mm Hg (D). LEFT ATRIUM: The atrium was normal in size. RIGHT VENTRICLE: The cavity size was normal. Wall thickness was normal. PULMONIC VALVE: Doppler: Transvalvular velocity was within the normal range. There was no evidence for stenosis. No regurgitation. TRICUSPID VALVE: Structurally normal valve. Doppler: Transvalvular velocity was within the normal range. No regurgitation. PULMONARY ARTERY: The main pulmonary artery was normal-sized. Systolic pressure was within the normal range. RIGHT ATRIUM: The atrium was normal in size. PERICARDIUM: There was no pericardial effusion. SYSTEMIC VEINS: Inferior vena cava: The vessel was normal in size. Patient weight: 241.5lb _Ejection fraction:_ 65-75% _Fractional shortening:_ 32% up to 5Kg 5-11.5Kg 11.6-22.9Kg 23-45Kg 45-57Kg Aortic Root 7-13 <17 13-22 17-27 17-27 LA diam 6-13 <23 24-38 33-47 37-40 RVID 10-17 7-15 7-15 7-18 8-17 LVIDd 12-22 <32 24-38 33-47 37-40 LVPW 2-4 3-6 5-7 6-8 7-8 IVS 2-4 3-6 5-7 6-8 7-8 BASIC MEASUREMENTS ADULT NORMAL Left ventricle LV internal dimension, ED, chordal *58.8 mm 43-52 level, PLAX LV internal dimension, ES, chordal *41.8 mm 23-38 level, PLAX Fractional shortening, chordal level, *29 % >29 PLAX LV posterior wall thickness, ED 9.98 mm IVS/LVPW ratio, ED 1 <1.3 Ventricular septum Septal thickness, ED 9.98 mm Aortic valve Leaflet separation 20 mm 15-26 Aorta Root diameter, ED 30 mm BASIC MEASUREMENTS ADULT NORMAL Aortic valve Leaflet separation 20 mm 15-26 DOPPLER MEASUREMENTS ADULT NORMAL Aortic valve Peak velocity, S 137 cm/s Mean velocity, S 104 cm/s VTI, S 24.8 cm Mean gradient, S 5 mm Hg Valve area, VTI 2.62 cm^2 Valve area index, VTI 1.2 cm^2/m^2 Valve area, Vmax 2.28 cm^2 Valve area index, Vmax 1.04 cm^2/m^2 Mitral valve Peak E-wave velocity 90.8 cm/s Peak A-wave velocity 105 cm/s Deceleration time *144 ms 150-230 Peak gradient, D 3 mm Hg Peak E/A ratio 0.9 Tricuspid valve Regurgitant peak velocity 354 cm/s Peak RV-RA gradient, S 50 mm Hg Maximal regurgitant velocity 354 cm/s Systemic veins Estimated CVP 10 mm Hg Right ventricle RV pressure, S *60 mm Hg <30 Pulmonic valve Peak velocity, S 102 cm/s LEGEND: Mean values are shown as u=mean value. Asterisk (*) mendez values outside specified normal range. Prepared and signed by Rodrigo Nassar [id number]
--- NOTE | 2016-05-29 18:51 | HHI.PR ---
Subjective Remarks Alert up in chair No SOB Objective Vital Signs Date Time Temp Pulse Resp B/P Pulse Ox O2 Delivery O2 Flow Rate FiO2 05/29/16 15:01 98.5 91 24 95/54 92 05/29/16 11:16 93 Nasal Cannula 4.00 05/29/16 11:05 98.3 94 20 123/74 96 05/29/16 10:00 96 20 131/67 93 Nasal Cannula 3 05/29/16 09:00 97.9 100 18 138/65 90 Nasal Cannula 4 05/29/16 07:51 93 Nasal Cannula 5.00 05/29/16 07:26 BiPAP 05/29/16 07:00 BiPAP 05/29/16 07:00 22 97 BiPAP 05/29/16 07:00 100 16 99/69 100 Nasal Cannula 3 05/29/16 06:12 82 16 119/70 97 BiPAP 05/29/16 04:04 100 50 05/29/16 00:54 100 1.00 50 05/28/16 23:00 94 18 128/79 92 Nasal Cannula 5 05/28/16 19:12 95 20 124/70 91 Nasal Cannula 5 I/O 05/28/16 05/28/16 05/28/16 05/29/16 05/29/16 05/29/16 07:00 15:00 23:00 07:00 15:00 23:00 Intake Total 30 ml 240 ml 180 ml 320 ml 600 ml Output Total 1600 ml 600 ml 600 ml 1250 ml Balance 30 ml -1360 ml -420 ml -280 ml -650 ml Intake Oral 30 ml 240 ml 180 ml 320 ml 600 ml Output Urine Total 1600 ml 600 ml 600 ml 1250 ml # Voids 3 1 1 # Bowel Movements 0 0 Result Diagram: 05/29/16 0357 05/29/16 0357 Objective Remarks GENERAL: SKIN: Warm and dry. HEAD: Atraumatic. Normocephalic. EYES: Pupils equal and round. No scleral icterus. No injection or drainage. ENT: No nasal bleeding or discharge. Mucous membranes pink and moist. NECK: Trachea midline. No JVD. CARDIOVASCULAR: Regular rate and rhythm. RESPIRATORY: No accessory muscle use. Clear to auscultation. Breath sounds equal bilaterally. GASTROINTESTINAL: Abdomen soft, non-tender, nondistended. Hepatic and splenic margins not palpable. MUSCULOSKELETAL: Extremities without clubbing, cyanosis, or edema. No obvious deformities. NEUROLOGICAL: Awake and alert. No obvious cranial nerve deficits. Motor grossly within normal limits. Five out of 5 muscle strength in the arms and legs. Normal speech. PSYCHIATRIC: Appropriate mood and affect; insight and judgment normal. Assessment and Plan Assessment and Plan CLARI COPD CAD PLAN FOR CARDIAC CATH BRONCHODILATOR THERAPY INCREASE ACTIVITY Jon Webb MD May 29, 2016 18:51
[2016-05-29] MEDS: CARBIDOPA/LEVODOPA 25 MG/100 MG TAB PO SCH (21:39)
--- NOTE | 2016-05-29 23:01 | EKG ---
Date Performed: 05/28/2016 Time Performed: 17:23:57 PTAGE: 65 years EKG: Sinus rhythm NORMAL ECG PREVIOUS TRACING : 05/28/2016 11.08 DOCTOR: Penny Bee Interpretating Date/Time 05/29/2016 22:57:28
[2016-05-30] VITALS (14 sets, daily range): BP systolic 118–131; BP diastolic 63–78; PULSE 71–104; RESP 18; TEMP 98.1–98.7; O2SAT 91–99
[2016-05-30] MEDS: RESP: ALBUTEROL 2.5 MG/IPRATROPIUM 0.5 MG NEB (SCH) NEB ×6 (04:39→23:43)
[2016-05-30] MEDS: methylPREDNISolone SOD SUCC 40 MG/1 ML VIAL IV PUSH SCH ×3 (05:57→22:25)
[2016-05-30] MEDS: ENOXAPARIN SODIUM 120 MG/0.8 ML SYRINGE SQ SCH ×2 (05:57→18:00)
[2016-05-30] MEDS: LEVOFLOXACIN 750 MG PREMIX INJ 150 ML IV SCH (05:57)
[2016-05-30] MEDS: INSULIN ASPART SUPPLEMENTAL SCALE SQ SCH ×4 (06:16→21:00)
[2016-05-30] MEDS: PRAVASTATIN SOD 40 MG TAB PO SCH (08:45)
[2016-05-30] MEDS: LISINOPRIL 5 MG TAB PO SCH (08:45)
[2016-05-30] MEDS: ASPIRIN 81 MG CHEW TAB CHEW SCH (08:45)
[2016-05-30] MEDS: AZITHROMYCIN 250 MG TAB PO SCH (08:45)
[2016-05-30] MEDS: FUROSEMIDE 40 MG TAB PO SCH ×2 (08:46→18:00)
[2016-05-30] MEDS: SODIUM CHLORIDE 0.9% FLUSH 5 ML FLUSH FLUSH SCH ×2 (08:47→22:24)
--- NOTE | 2016-05-30 08:54 | HHI.PR ---
Subjective Remarks Alert up in chair No SOB Objective Vital Signs Date Time Temp Pulse Resp B/P Pulse Ox O2 Delivery O2 Flow Rate FiO2 05/30/16 08:12 91 Nasal Cannula 5.00 05/30/16 04:41 97 50 05/30/16 04:41 97 BiPAP 50 05/30/16 03:15 98.6 75 18 119/78 98 05/30/16 00:01 96 50 05/29/16 23:58 96 BiPAP 50 05/29/16 23:54 98.2 95 18 121/72 90 05/29/16 20:01 98.2 95 18 119/74 95 05/29/16 20:00 95 Nasal Cannula 4.00 05/29/16 15:01 98.5 91 24 95/54 92 05/29/16 11:16 93 Nasal Cannula 4.00 05/29/16 11:05 98.3 94 20 123/74 96 05/29/16 10:00 96 20 131/67 93 Nasal Cannula 3 05/29/16 09:00 97.9 100 18 138/65 90 Nasal Cannula 4 I/O 05/29/16 05/29/16 05/29/16 05/30/16 05/30/16 05/30/16 07:00 15:00 23:00 07:00 15:00 23:00 Intake Total 320 ml 600 ml Output Total 600 ml 1250 ml Balance -280 ml -650 ml Intake Oral 320 ml 600 ml Output Urine Total 600 ml 1250 ml # Voids 1 Result Diagram: 05/29/16 0357 05/29/16 0357 Objective Remarks GENERAL: SKIN: Warm and dry. HEAD: Atraumatic. Normocephalic. EYES: Pupils equal and round. No scleral icterus. No injection or drainage. ENT: No nasal bleeding or discharge. Mucous membranes pink and moist. NECK: Trachea midline. No JVD. CARDIOVASCULAR: Regular rate and rhythm. RESPIRATORY: No accessory muscle use. Clear to auscultation. Breath sounds equal bilaterally. GASTROINTESTINAL: Abdomen soft, non-tender, nondistended. Hepatic and splenic margins not palpable. MUSCULOSKELETAL: Extremities without clubbing, cyanosis, or edema. No obvious deformities. NEUROLOGICAL: Awake and alert. No obvious cranial nerve deficits. Motor grossly within normal limits. Five out of 5 muscle strength in the arms and legs. Normal speech. PSYCHIATRIC: Appropriate mood and affect; insight and judgment normal. Assessment and Plan Assessment and Plan CLARI COPD CAD PLAN FOR CARDIAC CATH BRONCHODILATOR THERAPY INCREASE ACTIVITY Jon Webb MD May 30, 2016 08:54
--- NOTE | 2016-05-30 09:30 | HHI.PR ---
Subjective Remarks looks and feels better today. sob has improved. no fever. for stress test today. Objective Vitals Vital Signs Date Time Temp Pulse Resp B/P Pulse Ox O2 Delivery O2 Flow Rate FiO2 05/30/16 08:12 91 Nasal Cannula 5.00 05/30/16 04:41 97 50 05/30/16 04:41 97 BiPAP 50 05/30/16 03:15 98.6 75 18 119/78 98 05/30/16 00:01 96 50 05/29/16 23:58 96 BiPAP 50 05/29/16 23:54 98.2 95 18 121/72 90 05/29/16 20:01 98.2 95 18 119/74 95 05/29/16 20:00 95 Nasal Cannula 4.00 05/29/16 15:01 98.5 91 24 95/54 92 05/29/16 11:16 93 Nasal Cannula 4.00 05/29/16 11:05 98.3 94 20 123/74 96 05/29/16 10:00 96 20 131/67 93 Nasal Cannula 3 I/O 05/29/16 05/29/16 05/29/16 05/30/16 05/30/16 05/30/16 07:00 15:00 23:00 07:00 15:00 23:00 Intake Total 320 ml 600 ml Output Total 600 ml 1250 ml Balance -280 ml -650 ml Intake Oral 320 ml 600 ml Output Urine Total 600 ml 1250 ml # Voids 1 Result Diagram: 05/29/16 0357 05/29/16 0357 Imaging Last Impressions Chest X-Ray 05/28/16 0514 Signed Impressions: Service Date/Time: Saturday, May 28, 2016 05:26 - CONCLUSION: 1. Cardiomegaly. No acute pulmonary disease. Gerardo Jaimes MD Objective Remarks GENERAL: This is a well-nourished, well-developed patient, in no apparent distress. CARDIOVASCULAR: Regular rate and regular rhythm without murmurs, gallops, or rubs. RESPIRATORY: better air entry bilaterally GASTROINTESTINAL: Abdomen soft, non-tender, nondistended. Normal, active bowel sounds MUSCULOSKELETAL: Extremities without clubbing, cyanosis, or edema. NEURO: Alert & Oriented x4 to person, place, time, situation. Moves all ext x4 Procedures none Medications and IVs Current Medications IV Flush (NS Flush) 2 ml UNSCH PRN IVF FLUSH AFTER USING IV ACCESS; Start 05/28 at 05:15; Stop 05/28/16 at 06:37; Status DC Methylprednisolone Sodium Succinate (SoluMEDROL INJ) 125 mg ONCE ONCE IVP Last administered on 05/28/16 05:34; Start 05/28/16 at 05:15; Stop 05/28/16 at 05:16; Status DC Albuterol/ Ipratropium 1 ampule 1 ampule Q15M INH Last administered on 05:47; Start 05/28/16 at 05:15; Stop 05/28/16 at 05:46; Status DC Sodium Chloride 1,000 ml @ 1,000 mls/hr Q1H ONCE IV Last administered on 05:35; Start 05/28/16 at 05:17; Stop 05/28/16 at 06:24; Status DC Ceftriaxone Sodium/Sodium Chloride (Rocephin Inj/NS Inj) 100 ml @ 200 mls/hr ONCE ONCE IV Last administered on 05/28/16 05:35; Start 05/28/16 at 05:30; Stop 05/28/16 at 05:59; Status DC Azithromycin (Zithromax) 500 mg DAILY PO Last administered on 05/30/16 08:45; Start 05/28/16 at 09:00 Acetaminophen (Tylenol) 650 mg ONCE ONCE PO Last administered on 05/28/16 05: 57; Start 05/28/16 at 05:45; Stop 05/28/16 at 05:46; Status DC Aspirin (Aspirin) 325 mg ONCE ONCE PO Last administered on 05/28/16 06:06; Start 05/28/16 at 06:00; Stop 05/28/16 at 06:04; Status DC Nitroglycerin (Nitroglycerin 2% Oint) 1 inch ONCE ONCE TOP Last administered on 05/28/16 06:07; Start 05/28/16 at 06:00; Stop 05/28/16 at 06:04; Status DC Metoprolol Tartrate (Lopressor Inj) 5 mg Q5M IVS Last administered on 06:06; Start 05/28/16 at 06:00; Stop 05/28/16 at 06:11; Status DC Enoxaparin Sodium (Lovenox Inj) 110 mg ONCE ONCE SQ Last administered on 06:07; Start 05/28/16 at 06:00; Stop 05/28/16 at 06:04; Status DC IV Flush (NS Flush) 2 ml UNSCH PRN FLUSH FLUSH AFTER USING IV ACCESS; Start at 06:30 IV Flush (NS Flush) 2 ml BID FLUSH Last administered on 05/30/16 08:47; Start 05/28/16 at 09:00 Enoxaparin Sodium (Lovenox Inj) 40 mg Q24H SQ ; Start 05/28/16 at 09:00; Stop at 09:00; Status DC Naloxone HCl (Narcan Inj) 0.4 mg UNSCH PRN IV SEE LABEL COMMENTS; Start at 06:30 Nitroglycerin (Nitrostat Sl) 0.4 mg Q5M PRN SL CHEST PAIN; Start 05/28/16 at 06 :30 Aspirin (Aspirin Chew) 81 mg DAILY CHEW Last administered on 05/30/16 08:45; Start 05/28/16 at 09:00 Carbidopa/Levodopa (Sinemet 25-100 Mg) 1 tab HS PO Last administered on 21:39; Start 05/28/16 at 21:00 Furosemide (Lasix) 40 mg BID@09,18 PO Last administered on 05/30/16 08:46; Start 05/28/16 at 09:00 Pravastatin Sodium 40 mg 40 mg DAILY PO Last administered on 05/30/16 08:45; Start 05/28/16 at 09:00 Levofloxacin/ Dextrose (Levaquin 750 Mg Premix Inj) 150 ml @ 100 mls/hr Q24H IV Last administered on 05/30/16 05:57; Start 05/28/16 at 06:00 Enoxaparin Sodium (Lovenox Inj) 110 mg Q12H SQ Last administered on 05/30/16 05:57; Start 05/28/16 at 18:00 Albuterol/ Ipratropium (Duoneb Neb) 1 ampule Q4HR NEB NEB Last administered on 05/30/16 04:39; Start 05/28/16 at 08:00 Albuterol Sulfate (Albuterol Neb) 1.25 mg Q2HR NEB PRN NEB SHORTNESS OF BREATH ; Start 05/28/16 at 08:00 Methylprednisolone Sodium Succinate (SoluMEDROL INJ) 40 mg Q8HR IV PUSH Last administered on 05/30/16 05:57; Start 05/28/16 at 14:00 Dextrose (D50w (Vial) Inj) 25 ml UNSCH PRN IV PUSH HYPOGLYCEMIA-SEE COMMENTS; Start 05/28/16 at 08:15 Glucagon (Glucagon Inj) 1 mg UNSCH PRN OTHER HYPOGLYCEMIA-SEE COMMENTS; Start 05/28/16 at 08:15 Insulin Aspart (NovoLOG SUPPLEMENTAL SCALE) 1 ACHS SLIDING SCALE SQ Last administered on 05/30/16 06:16; Start 05/28/16 at 11:00 Lisinopril (Prinivil) 2.5 mg DAILY PO Last administered on 05/30/16 08:45; Start 05/28/16 at 09:00 Miscellaneous (Pill Splitter) 1 ea UNSCH PRN OTHER SEE LABEL COMMENTS; Start at 08:45 A/P Assessment and Plan A/P - NSTEMI continue with lovenox ,aspirin and statin- cardiology consult appreciated. for stress test today. -acute on chronic hypoxemic respiratory failure due to COPD exacerbation- improving slowly continue neb treatment and IV steroid along with antibiotics- blood cultures negative so far. pulmonary following. -diabetes mellitus; hold metformin- resume home insulin regimen soon-continue accu-check with SSI for now -hypertension/ dyslipidemia; start aftab powers. -DVT prophylaxis; on lovenox Meaghan Rolon MD May 30, 2016 09:30
[2016-05-30] MEDS ORDERED: REGADENOSON INJ 0.4 MG/5 ML SYR ONE (12:15)
--- NOTE | 2016-05-30 13:34 | PD.CARD.PN ---
Subjective Subjective Remarks No chest pain, decreased shortness of breath Objective Medications Current Medications Medications (Trade) Dose Ordered Sig/Vale Route Start Time Stop Time Status Last Admin (Zithromax) 500 mg DAILY PO 05/28/16 09:00 05/30/16 08:45 (NS Flush) 2 ml UNSCH PRN FLUSH 05/28/16 06:30 (NS Flush) 2 ml BID FLUSH 05/28/16 09:00 05/30/16 08:47 (Narcan Inj) 0.4 mg UNSCH PRN IV 05/28/16 06:30 (Nitrostat Sl) 0.4 mg Q5M PRN SL 05/28/16 06:30 (Aspirin Chew) 81 mg DAILY CHEW 05/28/16 09:00 05/30/16 08:45 (Sinemet 25-100 Mg) 1 tab HS PO 05/28/16 21:00 05/29/16 21:39 (Lasix) 40 mg BID@09,18 PO 05/28/16 09:00 05/30/16 08:46 Pravastatin Sodium 40 mg 40 mg DAILY PO 05/28/16 09:00 05/30/16 08:45 (Levaquin 750 Mg Premix Inj) 150 ml @ 100 mls/hr Q24H IV 05/28/16 06:00 05/30/16 05:57 (Lovenox Inj) 110 mg Q12H SQ 05/28/16 18:00 05/30/16 05:57 (SoluMEDROL INJ) 40 mg Q8HR IV PUSH 05/28/16 14:00 05/30/16 05:57 (D50w (Vial) Inj) 25 ml UNSCH PRN IV PUSH 05/28/16 08:15 (Glucagon Inj) 1 mg UNSCH PRN OTHER 05/28/16 08:15 (Prinivil) 2.5 mg DAILY PO 05/28/16 09:00 05/30/16 08:45 (Pill Splitter) 1 ea UNSCH PRN OTHER 05/28/16 08:45 (Levemir Inj) 10 units HS SQ 05/30/16 21:00 Vital Signs / I&O Vital Signs Date Time Temp Pulse Resp B/P Pulse Ox O2 Delivery O2 Flow Rate FiO2 05/30/16 08:12 91 Nasal Cannula 5.00 05/30/16 04:41 97 50 05/30/16 04:41 97 BiPAP 50 05/30/16 03:15 98.6 75 18 119/78 98 05/30/16 00:01 96 50 05/29/16 23:58 96 BiPAP 50 05/29/16 23:54 98.2 95 18 121/72 90 05/29/16 20:01 98.2 95 18 119/74 95 05/29/16 20:00 95 Nasal Cannula 4.00 05/29/16 15:01 98.5 91 24 95/54 92 I/O 05/29/16 05/29/16 05/29/16 05/30/16 05/30/16 05/30/16 07:00 15:00 23:00 07:00 15:00 23:00 Intake Total 320 ml 600 ml Output Total 600 ml 1250 ml Balance -280 ml -650 ml Intake Oral 320 ml 600 ml Output Urine Total 600 ml 1250 ml # Voids 1 Physical Exam GENERAL: NAD, AAOx3 SKIN: Warm and dry. HEAD: Atraumatic. Normocephalic. EYES: Pupils equal and round. No scleral icterus. No injection or drainage. ENT: No nasal bleeding or discharge. Mucous membranes pink and moist. NECK: Trachea midline. No JVD. CARDIOVASCULAR: Regular rate and rhythm. No murmurs noted RESPIRATORY: No accessory muscle use. Decreased breath sounds, minimal air movement, no rales GASTROINTESTINAL: Abdomen soft, non-tender, nondistended. Hepatic and splenic margins not palpable. MUSCULOSKELETAL: Extremities without clubbing, cyanosis, or edema. No obvious deformities. NEUROLOGICAL: Awake and alert. No obvious cranial nerve deficits. Motor grossly within normal limits. Five out of 5 muscle strength in the arms and legs. Normal speech. PSYCHIATRIC: Appropriate mood and affect; insight and judgment normal. Assessment and Plan Problem List: (1) NSTEMI (non-ST elevated myocardial infarction) (2) COPD exacerbation (3) Obstructive sleep apnea (4) GERD (gastroesophageal reflux disease) (5) Hyperlipidemia (6) CAD (coronary artery disease) (7) Tobacco abuse Assessment and Plan 1) Troponins falling, more likely Type 2 due to respiratory status 2) Pharmacologic nuclear stress today 3) Continue medical management of CAD for now, if stress test is positive will discuss with the patient further invasive with cardiac catheterization 4) Spoke to him for greater than 3 minutes about tobacco cessation from a cardio and pulmonary standpoint Iban Siddiqui DO May 30, 2016 13:34
--- NOTE | 2016-05-30 13:39 | RADRPT ---
EXAM DATE/TIME: 05/30/2016 10:55 [facility] COMPARISON: No previous studies available for comparison. INDICATIONS : Shortness of breath for 5 days. Cough with retrosternal chest pain. Coronary atherosclerosis. DOSE: 31.2 mCi Tc99m Myoview at stress. 10.3 mCi Tc99m Myoview at rest. 0.4 mg Lexiscan STRESS SYMPTOMS: Dyspnea and headache. EJECTION FRACTION: 50% MEDICAL HISTORY : Myocardial infarction. Hypercholesterolemia. Chronic obstructive pulmonary disease. GERD. Hypertensio n SURGICAL HISTORY : Cholecystectomy. ENCOUNTER: Initial ACUITY: 4 - 6 days PAIN SCALE: 3/10 LOCATION: Retrosternal chest TECHNIQUE: The patient underwent pharmacologic stress with infusion of prescribed dose. Continuous ECG tracing was monitored during stress. Gated SPECT imaging was performed after stress and conventional SPECT i maging was performed at rest. The examination was performed on a SPECT/CT scanner, both attenuation and non-corrected datasets were reviewed. FINDINGS: DISTRIBUTION: The maximum perfused segment at stress is in the anterolateral wall. PERFUSION STUDY: The pattern of perfusion at stress is within normal limits. GATED STUDY: There is intact wall motion and thickening without hypokinetic or dyskinetic segments. CONCLUSION: 1. No significant reversibility to suggest ischemia. 2. Wall motion just within normal limits with ejection fraction at 50%. RISK CATEGORY: Low (<1% Annual Mortality Rate) Yeyo Winn MD on May 30, 2016 at 13:34 Board Certified Radiologist. This report was verified electronically.
[2016-05-30] MEDS: INSULIN DETEMIR 100 UNITS/ML VIAL SQ SCH (21:00)
[2016-05-30] MEDS: CARBIDOPA/LEVODOPA 25 MG/100 MG TAB PO SCH (22:23)
[2016-05-31] VITALS (30 sets, daily range): BP systolic 108–131; BP diastolic 56–73; PULSE 64–114; RESP 18–21; TEMP 96.9–98.4; O2SAT 91–99
[2016-05-31] MEDS: RESP: ALBUTEROL 2.5 MG/IPRATROPIUM 0.5 MG NEB (SCH) NEB ×6 (04:15→23:41)
[2016-05-31] MEDS: LEVOFLOXACIN 750 MG PREMIX INJ 150 ML IV SCH (06:38)
[2016-05-31] MEDS: ENOXAPARIN SODIUM 120 MG/0.8 ML SYRINGE SQ SCH (06:38)
[2016-05-31] MEDS: methylPREDNISolone SOD SUCC 40 MG/1 ML VIAL IV PUSH SCH ×3 (06:38→21:23)
[2016-05-31] MEDS: INSULIN ASPART SUPPLEMENTAL SCALE SQ SCH ×4 (06:38→21:26)
--- NOTE | 2016-05-31 08:38 | HHI.PR ---
Subjective Remarks Alert up in chair No SOB Objective Vital Signs Date Time Temp Pulse Resp B/P Pulse Ox O2 Delivery O2 Flow Rate FiO2 05/31/16 07:39 95 Nasal Cannula 4.00 05/31/16 07:30 97.9 79 18 110/65 99 05/31/16 05:25 98.4 73 21 108/57 99 05/31/16 05:00 72 05/31/16 04:16 97 50 05/31/16 04:00 72 05/31/16 03:00 72 05/31/16 02:00 72 05/31/16 01:00 70 05/31/16 00:00 84 05/30/16 23:52 99 BiPAP 50 05/30/16 23:30 98 50 05/30/16 23:00 98.2 92 18 131/74 92 05/30/16 23:00 102 05/30/16 22:00 90 05/30/16 21:15 93 Nasal Cannula 4.00 05/30/16 21:00 84 05/30/16 20:00 98.2 95 18 118/63 94 05/30/16 20:00 104 05/30/16 19:00 98 05/30/16 16:00 98.1 71 18 126/66 97 I/O 05/30/16 05/30/16 05/30/16 05/31/16 05/31/16 05/31/16 07:00 15:00 23:00 07:00 15:00 23:00 Intake Total 250 ml Balance 250 ml Intake Oral 250 ml # Voids 2 Result Diagram: 05/29/16 0357 05/29/16 0357 Objective Remarks GENERAL: SKIN: Warm and dry. HEAD: Atraumatic. Normocephalic. EYES: Pupils equal and round. No scleral icterus. No injection or drainage. ENT: No nasal bleeding or discharge. Mucous membranes pink and moist. NECK: Trachea midline. No JVD. CARDIOVASCULAR: Regular rate and rhythm. RESPIRATORY: No accessory muscle use. Clear to auscultation. Breath sounds equal bilaterally. GASTROINTESTINAL: Abdomen soft, non-tender, nondistended. Hepatic and splenic margins not palpable. MUSCULOSKELETAL: Extremities without clubbing, cyanosis, or edema. No obvious deformities. NEUROLOGICAL: Awake and alert. No obvious cranial nerve deficits. Motor grossly within normal limits. Five out of 5 muscle strength in the arms and legs. Normal speech. PSYCHIATRIC: Appropriate mood and affect; insight and judgment normal. Assessment and Plan Assessment and Plan CLARI COPD CAD PLAN FOR CARDIAC CATH BRONCHODILATOR THERAPY INCREASE ACTIVITY Jon Webb MD May 31, 2016 08:38
[2016-05-31] MEDS: FUROSEMIDE 40 MG TAB PO SCH ×2 (08:50→17:49)
[2016-05-31] MEDS: ASPIRIN 81 MG CHEW TAB CHEW SCH (08:50)
[2016-05-31] MEDS: AZITHROMYCIN 250 MG TAB PO SCH (08:50)
[2016-05-31] MEDS: PRAVASTATIN SOD 40 MG TAB PO SCH (08:51)
[2016-05-31] MEDS: LISINOPRIL 5 MG TAB PO SCH (08:51)
[2016-05-31] MEDS: SODIUM CHLORIDE 0.9% FLUSH 5 ML FLUSH FLUSH SCH ×2 (08:51→21:31)
--- NOTE | 2016-05-31 10:12 | HHI.PR ---
Subjective Remarks still with some sob- on four liters of oxygen via N/C. but he says that he's slowly improving. Objective Vitals Vital Signs Date Time Temp Pulse Resp B/P Pulse Ox O2 Delivery O2 Flow Rate FiO2 05/31/16 07:39 95 Nasal Cannula 4.00 05/31/16 07:30 97.9 79 18 110/65 99 05/31/16 05:25 98.4 73 21 108/57 99 05/31/16 05:00 72 05/31/16 04:16 97 50 05/31/16 04:00 72 05/31/16 03:00 72 05/31/16 02:00 72 05/31/16 01:00 70 05/31/16 00:00 84 05/30/16 23:52 99 BiPAP 50 05/30/16 23:30 98 50 05/30/16 23:00 98.2 92 18 131/74 92 05/30/16 23:00 102 05/30/16 22:00 90 05/30/16 21:15 93 Nasal Cannula 4.00 05/30/16 21:00 84 05/30/16 20:00 98.2 95 18 118/63 94 05/30/16 20:00 104 05/30/16 19:00 98 05/30/16 16:00 98.1 71 18 126/66 97 I/O 05/30/16 05/30/16 05/30/16 05/31/16 05/31/16 05/31/16 07:00 15:00 23:00 07:00 15:00 23:00 Intake Total 250 ml Balance 250 ml Intake Oral 250 ml # Voids 2 Result Diagram: 05/29/16 0357 05/29/16 0357 Imaging Last Impressions Myocardial Perfusion Scan Nuc Med 05/30/16 0700 Signed Impressions: Service Date/Time: May 10:55 - CONCLUSION: 1. No significant reversibility to suggest ischemia. 2. Wall motion just within normal limits with ejection fraction at 50%%. RISK CATEGORY: Low (<1%% Annual Mortality Rate) Yeyo Winn MD Chest X-Ray 05/28/1614 Signed Impressions: Service Date/Time: Saturday, May 28, 2016 05:26 - CONCLUSION: 1. Cardiomegaly. No acute pulmonary disease. Gerardo Jaimes MD Objective Remarks GENERAL: This is a well-nourished, well-developed patient, in no apparent distress. CARDIOVASCULAR: Regular rate and regular rhythm without murmurs, gallops, or rubs. RESPIRATORY: better air entry bilaterally GASTROINTESTINAL: Abdomen soft, non-tender, nondistended. Normal, active bowel sounds MUSCULOSKELETAL: Extremities without clubbing, cyanosis, or edema. NEURO: Alert & Oriented x4 to person, place, time, situation. Moves all ext x4 Procedures none Medications and IVs Current Medications IV Flush (NS Flush) 2 ml UNSCH PRN IVF FLUSH AFTER USING IV ACCESS; Start 05/28 at 05:15; Stop 05/28/16 at 06:37; Status DC Methylprednisolone Sodium Succinate (SoluMEDROL INJ) 125 mg ONCE ONCE IVP Last administered on 05/28/16 05:34; Start 05/28/16 at 05:15; Stop 05/28/16 at 05:16; Status DC Albuterol/ Ipratropium 1 ampule 1 ampule Q15M INH Last administered on 05:47; Start 05/28/16 at 05:15; Stop 05/28/16 at 05:46; Status DC Sodium Chloride 1,000 ml @ 1,000 mls/hr Q1H ONCE IV Last administered on 05:35; Start 05/28/16 at 05:17; Stop 05/28/16 at 06:24; Status DC Ceftriaxone Sodium/Sodium Chloride (Rocephin Inj/NS Inj) 100 ml @ 200 mls/hr ONCE ONCE IV Last administered on 05/28/16 05:35; Start 05/28/16 at 05:30; Stop 05/28/16 at 05:59; Status DC Azithromycin (Zithromax) 500 mg DAILY PO Last administered on 05/31/16 08:50; Start 05/28/16 at 09:00 Acetaminophen (Tylenol) 650 mg ONCE ONCE PO Last administered on 05/28/16 05: 57; Start 05/28/16 at 05:45; Stop 05/28/16 at 05:46; Status DC Aspirin (Aspirin) 325 mg ONCE ONCE PO Last administered on 05/28/16 06:06; Start 05/28/16 at 06:00; Stop 05/28/16 at 06:04; Status DC Nitroglycerin (Nitroglycerin 2% Oint) 1 inch ONCE ONCE TOP Last administered on 05/28/16 06:07; Start 05/28/16 at 06:00; Stop 05/28/16 at 06:04; Status DC Metoprolol Tartrate (Lopressor Inj) 5 mg Q5M IVS Last administered on 06:06; Start 05/28/16 at 06:00; Stop 05/28/16 at 06:11; Status DC Enoxaparin Sodium (Lovenox Inj) 110 mg ONCE ONCE SQ Last administered on 06:07; Start 05/28/16 at 06:00; Stop 05/28/16 at 06:04; Status DC IV Flush (NS Flush) 2 ml UNSCH PRN FLUSH FLUSH AFTER USING IV ACCESS; Start at 06:30 IV Flush (NS Flush) 2 ml BID FLUSH Last administered on 05/31/16 08:51; Start 05/28/16 at 09:00 Enoxaparin Sodium (Lovenox Inj) 40 mg Q24H SQ ; Start 05/28/16 at 09:00; Stop at 09:00; Status DC Naloxone HCl (Narcan Inj) 0.4 mg UNSCH PRN IV SEE LABEL COMMENTS; Start at 06:30 Nitroglycerin (Nitrostat Sl) 0.4 mg Q5M PRN SL CHEST PAIN; Start 05/28/16 at 06 :30 Aspirin (Aspirin Chew) 81 mg DAILY CHEW Last administered on 05/31/16 08:50; Start 05/28/16 at 09:00 Carbidopa/Levodopa (Sinemet 25-100 Mg) 1 tab HS PO Last administered on 22:23; Start 05/28/16 at 21:00 Furosemide (Lasix) 40 mg BID@09,18 PO Last administered on 05/31/16 08:50; Start 05/28/16 at 09:00 Pravastatin Sodium 40 mg 40 mg DAILY PO Last administered on 05/31/16 08:51; Start 05/28/16 at 09:00 Levofloxacin/ Dextrose (Levaquin 750 Mg Premix Inj) 150 ml @ 100 mls/hr Q24H IV Last administered on 05/31/16 06:38; Start 05/28/16 at 06:00 Enoxaparin Sodium (Lovenox Inj) 110 mg Q12H SQ Last administered on 05/31/16 06:38; Start 05/28/16 at 18:00 Albuterol/ Ipratropium (Duoneb Neb) 1 ampule Q4HR NEB NEB Last administered on 05/31/16 07:39; Start 05/28/16 at 08:00 Albuterol Sulfate (Albuterol Neb) 1.25 mg Q2HR NEB PRN NEB SHORTNESS OF BREATH ; Start 05/28/16 at 08:00 Methylprednisolone Sodium Succinate (SoluMEDROL INJ) 40 mg Q8HR IV PUSH Last administered on 05/31/16 06:38; Start 05/28/16 at 14:00 Dextrose (D50w (Vial) Inj) 25 ml UNSCH PRN IV PUSH HYPOGLYCEMIA-SEE COMMENTS; Start 05/28/16 at 08:15 Glucagon (Glucagon Inj) 1 mg UNSCH PRN OTHER HYPOGLYCEMIA-SEE COMMENTS; Start 05/28/16 at 08:15 Insulin Aspart (NovoLOG SUPPLEMENTAL SCALE) 1 ACHS SLIDING SCALE SQ Last administered on 05/31/16 06:38; Start 05/28/16 at 11:00 Lisinopril (Prinivil) 2.5 mg DAILY PO Last administered on 05/31/16 08:51; Start 05/28/16 at 09:00 Miscellaneous (Pill Splitter) 1 ea UNSCH PRN OTHER SEE LABEL COMMENTS; Start at 08:45 Insulin Detemir (Levemir Inj) 10 units HS SQ Last administered on 05/30/16 21: 00; Start 05/30/16 at 21:00 Regadenoson (Lexiscan Inj) 0.4 mg STK-MED ONCE .ROUTE Last administered on 05/30 12:15; Start 05/30/16 at 12:15; Stop 05/30/16 at 12:16; Status DC A/P Assessment and Plan A/P - NSTEMI continue aspirin and statin- stress test with no significant ischemia- will dc lovenox- d/w . -acute on chronic hypoxemic respiratory failure due to COPD exacerbation- improving slowly continue neb treatment and IV steroid along with antibiotics- blood cultures negative so far.will titrate down the oxygen slowly. pulmonary following. -diabetes mellitus; hold metformin- continue levemir-continue accu-check with SSI for now -hypertension/ dyslipidemia; resumed home meds -DVT prophylaxis; on lovenox Meaghan Rolon MD May 31, 2016 10:12
--- NOTE | 2016-05-31 13:42 | PD.CARD.PN ---
Subjective Subjective Remarks No chest pain, breathing getting better Objective Medications Current Medications Medications (Trade) Dose Ordered Sig/Vale Route Start Time Stop Time Status Last Admin (Zithromax) 500 mg DAILY PO 05/28/16 09:00 05/31/16 08:50 (NS Flush) 2 ml UNSCH PRN FLUSH 05/28/16 06:30 (NS Flush) 2 ml BID FLUSH 05/28/16 09:00 05/31/16 08:51 (Narcan Inj) 0.4 mg UNSCH PRN IV 05/28/16 06:30 (Nitrostat Sl) 0.4 mg Q5M PRN SL 05/28/16 06:30 (Aspirin Chew) 81 mg DAILY CHEW 05/28/16 09:00 05/31/16 08:50 (Sinemet 25-100 Mg) 1 tab HS PO 05/28/16 21:00 05/30/16 22:23 (Lasix) 40 mg BID@09,18 PO 05/28/16 09:00 05/31/16 08:50 Pravastatin Sodium 40 mg 40 mg DAILY PO 05/28/16 09:00 05/31/16 08:51 (Levaquin 750 Mg Premix Inj) 150 ml @ 100 mls/hr Q24H IV 05/28/16 06:00 05/31/16 06:38 (D50w (Vial) Inj) 25 ml UNSCH PRN IV PUSH 05/28/16 08:15 (Glucagon Inj) 1 mg UNSCH PRN OTHER 05/28/16 08:15 (Prinivil) 2.5 mg DAILY PO 05/28/16 09:00 05/31/16 08:51 (Pill Splitter) 1 ea UNSCH PRN OTHER 05/28/16 08:45 (Levemir Inj) 10 units HS SQ 05/30/16 21:00 05/30/16 21:00 (SoluMEDROL INJ) 20 mg Q8HR IV PUSH 05/31/16 14:00 (Lovenox Inj) 40 mg Q24H SQ 06/01/16 09:00 Vital Signs / I&O Vital Signs Date Time Temp Pulse Resp B/P Pulse Ox O2 Delivery O2 Flow Rate FiO2 05/31/16 11:30 98.2 81 18 109/56 95 05/31/16 07:39 95 Nasal Cannula 4.00 2/17/17 07:30 97.9 79 18 110/65 99 05/31/16 05:25 98.4 73 21 108/57 99 05/31/16 05:00 72 05/31/16 04:16 97 50 05/31/16 04:00 72 05/31/16 03:00 72 05/31/16 02:00 72 05/31/16 01:00 70 05/31/16 00:00 84 05/30/16 23:52 99 BiPAP 50 05/30/16 23:30 98 50 05/30/16 23:00 98.2 92 18 131/74 92 05/30/16 23:00 102 05/30/16 22:00 90 05/30/16 21:15 93 Nasal Cannula 4.00 05/30/16 21:00 84 05/30/16 20:00 98.2 95 18 118/63 94 05/30/16 20:00 104 05/30/16 19:00 98 05/30/16 16:00 98.1 71 18 126/66 97 I/O 05/30/16 05/30/16 05/30/16 05/31/16 05/31/16 05/31/16 07:00 15:00 23:00 07:00 15:00 23:00 Intake Total 250 ml Balance 250 ml Intake Oral 250 ml # Voids 2 Physical Exam GENERAL: NAD, AAOx3 SKIN: Warm and dry. HEAD: Atraumatic. Normocephalic. EYES: Pupils equal and round. No scleral icterus. No injection or drainage. ENT: No nasal bleeding or discharge. Mucous membranes pink and moist. NECK: Trachea midline. No JVD. CARDIOVASCULAR: Regular rate and rhythm. No murmurs noted RESPIRATORY: No accessory muscle use. Decreased breath sounds, no rales GASTROINTESTINAL: Abdomen soft, non-tender, nondistended. Hepatic and splenic margins not palpable. MUSCULOSKELETAL: Extremities without clubbing, cyanosis, or edema. No obvious deformities. NEUROLOGICAL: Awake and alert. No obvious cranial nerve deficits. Motor grossly within normal limits. Five out of 5 muscle strength in the arms and legs. Normal speech. PSYCHIATRIC: Appropriate mood and affect; insight and judgment normal. Laboratory Laboratory Tests Test 05/28/16 05/28/16 05/29/16 19:15 20:30 03:57 Total Creatine Kinase 382 U/L (39-308) Creatine Kinase MB 9.0 NG/ML (0.5-3.6) Creatine Kinase MB % 2.4 % (0.0-4.0) Troponin I 0.45 NG/ML (0.02-0.05) Blood Gas Puncture Site LT RADIAL Blood Gas Patient Temperature 98.6 Blood Gas HCO3 35 mmol/L (22-26) Blood Gas Base Excess 9.5 mmol/L (-2-2) Blood Gas Oxygen Saturation 85 % (90-100) Arterial Blood pH 7.35 (7.380-7.420) Arterial Blood Partial 65 mmHg (38-42) Pressure CO2 Arterial Blood Partial 55 mmHG Pressure O2 (61-120) Arterial Blood Oxygen Content 16.4 Vol % (12.0-20.0) Arterial Blood 2.0 % (0-4) Carboxyhemoglobin Arterial Blood Methemoglobin 2.0 % (0-2) Blood Gas Hemoglobin 13.8 G/DL (12.0-16.0) Oxygen Delivery Device NASAL CANNULA Blood Gas Liter Flow 5 L/M White Blood Count 3.8 TH/MM3 (4.0-11.0) Red Blood Count 4.24 MIL/MM3 (4.50-5.90) Hemoglobin 12.9 GM/DL (13.0-17.0) Hematocrit 38.4 % (39.0-51.0) Mean Corpuscular Volume 90.6 FL (80.0-100.0) Mean Corpuscular Hemoglobin 30.5 PG (27.0-34.0) Mean Corpuscular Hemoglobin 33.6 % Concent (32.0-36.0) Red Cell Distribution Width 15.8 % (11.6-17.2) Platelet Count 200 TH/MM3 (150-450) Mean Platelet Volume 8.0 FL (7.0-11.0) Neutrophils (%) (Auto) 75.7 % (16.0-70.0) Lymphocytes (%) (Auto) 17.9 % (9.0-44.0) Monocytes (%) (Auto) 6.1 % (0.0-8.0) Eosinophils (%) (Auto) 0.0 % (0.0-4.0) Basophils (%) (Auto) 0.3 % (0.0-2.0) Neutrophils # (Auto) 2.9 TH/MM3 (1.8-7.7) Lymphocytes # (Auto) 0.7 TH/MM3 (1.0-4.8) Monocytes # (Auto) 0.2 TH/MM3 (0-0.9) Eosinophils # (Auto) 0.0 TH/MM3 (0-0.4) Basophils # (Auto) 0.0 TH/MM3 (0-0.2) CBC Comment DIFF FINAL Differential Comment Sodium Level 136 MEQ/L (136-145) Potassium Level 4.4 MEQ/L (3.5-5.1) Chloride Level 95 MEQ/L (98-107) Carbon Dioxide Level 36.1 MEQ/L (21.0-32.0) Anion Gap 5 MEQ/L (5-15) Blood Urea Nitrogen 23 MG/DL (7-18) Creatinine 0.90 MG/DL (0.60-1.30) Estimat Glomerular Filtration 85 ML/MIN (>89) Rate Random Glucose 232 MG/DL (74-106) Calcium Level 8.3 MG/DL (8.5-10.1) Triglycerides Level 68 MG/DL (42-150) Cholesterol Level 98 MG/DL (120-200) LDL Cholesterol 51 MG/DL (0-99) HDL Cholesterol 33.5 MG/DL (40.0-60.0) Cholesterol/HDL Ratio 2.92 RATIO Assessment and Plan Problem List: (1) NSTEMI (non-ST elevated myocardial infarction) (2) COPD exacerbation (3) Obstructive sleep apnea (4) GERD (gastroesophageal reflux disease) (5) Hyperlipidemia (6) CAD (coronary artery disease) (7) Tobacco abuse Assessment and Plan 1) Stress test showing no ischemic defects, continue medical management of CAD 2) Tobacco cessation, is attempting to stop 3) Will see PRN, call with questions Iban Siddiqui DO May 31, 2016 13:42
[2016-05-31] MEDS ORDERED: ACETAMINOPHEN 500 MG CPLT PO PRN (21:00)
[2016-05-31] MEDS: INSULIN DETEMIR 100 UNITS/ML VIAL SQ SCH (21:00)
[2016-05-31] MEDS: CARBIDOPA/LEVODOPA 25 MG/100 MG TAB PO SCH (21:24)
[2016-06-01] VITALS (27 sets, daily range): BP systolic 116–142; BP diastolic 65–81; PULSE 69–104; RESP 18–20; TEMP 96.9–99; O2SAT 91–99
[2016-06-01] MEDS: RESP: ALBUTEROL 2.5 MG/IPRATROPIUM 0.5 MG NEB (SCH) NEB (04:58)
[2016-06-01] MEDS: methylPREDNISolone SOD SUCC 40 MG/1 ML VIAL IV PUSH SCH ×3 (05:56→21:19)
[2016-06-01] MEDS: INSULIN ASPART SUPPLEMENTAL SCALE SQ SCH ×4 (05:58→21:15)
[2016-06-01] MEDS: LEVOFLOXACIN 750 MG PREMIX INJ 150 ML IV SCH (05:58)
[2016-06-01] MEDS: RESP: ALBUTEROL 1.25 MG/3 ML NEB (PRN) NEB ×2 (08:35→12:20)
[2016-06-01] MEDS: ASPIRIN 81 MG CHEW TAB CHEW SCH (09:52)
[2016-06-01] MEDS: PRAVASTATIN SOD 40 MG TAB PO SCH (09:52)
[2016-06-01] MEDS: LISINOPRIL 5 MG TAB PO SCH (09:52)
[2016-06-01] MEDS: ENOXAPARIN SODIUM 40 MG/0.4 ML SYRINGE SQ SCH (09:52)
[2016-06-01] MEDS: SODIUM CHLORIDE 0.9% FLUSH 5 ML FLUSH FLUSH SCH ×2 (09:52→21:19)
[2016-06-01] MEDS: AZITHROMYCIN 250 MG TAB PO SCH (09:52)
[2016-06-01] MEDS: FUROSEMIDE 40 MG TAB PO SCH ×2 (09:53→17:02)
--- NOTE | 2016-06-01 10:47 | HHI.PR ---
Subjective Remarks in no acute distress. now on three liters of oxygen via N/C and seem fairly comfortable. no fever. Objective Vitals Vital Signs Date Time Temp Pulse Resp B/P Pulse Ox O2 Delivery O2 Flow Rate FiO2 06/01/16 08:37 91 Nasal Cannula 3.00 06/01/16 08:37 91 06/01/16 07:45 97.7 79 18 122/75 94 06/01/16 04:56 99 50 06/01/16 03:00 72 06/01/16 02:00 70 06/01/16 01:00 78 06/01/16 00:49 96.9 85 20 142/81 98 06/01/16 00:00 72 05/31/16 23:00 82 05/31/16 22:53 95 50 05/31/16 22:00 90 05/31/16 21:00 100 05/31/16 20:34 93 Nasal Cannula 3.00 05/31/16 20:00 96.9 86 18 124/73 91 05/31/16 20:00 92 05/31/16 19:00 94 05/31/16 18:00 76 05/31/16 17:00 98 05/31/16 16:00 88 05/31/16 15:00 98.2 89 18 131/73 93 05/31/16 15:00 84 05/31/16 14:00 86 05/31/16 13:00 98 05/31/16 12:00 86 05/31/16 11:30 98.2 81 18 109/56 95 05/31/16 11:00 88 I/O 05/31/16 05/31/16 05/31/16 06/01/16 06/01/16 06/01/16 07:00 15:00 23:00 07:00 15:00 23:00 Intake Total 250 ml 1300 ml 690 ml Output Total 800 ml Balance 250 ml 1300 ml -110 ml Intake Oral 250 ml 100 ml 540 ml IV Total 1200 ml 150 ml Output Urine Total 800 ml # Voids 2 5 # Bowel Movements 2 1 Result Diagram: 05/29/167 05/29/16356 Imaging Last Impressions Myocardial Perfusion Scan Nuc Med 05/30/16 0700 Signed Impressions: Service Date/Time: May 10:55 - CONCLUSION: 1. No significant reversibility to suggest ischemia. 2. Wall motion just within normal limits with ejection fraction at 50%%. RISK CATEGORY: Low (<1%% Annual Mortality Rate) Yeyo Winn MD Chest X-Ray 05/28/16513 Signed Impressions: Service Date/Time: Saturday, May 28, 2016 05:26 - CONCLUSION: 1. Cardiomegaly. No acute pulmonary disease. Gerardo Jaimes MD Objective Remarks GENERAL: This is a well-nourished, well-developed patient, in no apparent distress. CARDIOVASCULAR: Regular rate and regular rhythm without murmurs, gallops, or rubs. RESPIRATORY: better air entry bilaterally GASTROINTESTINAL: Abdomen soft, non-tender, nondistended. Normal, active bowel sounds MUSCULOSKELETAL: Extremities without clubbing, cyanosis, or edema. NEURO: Alert & Oriented x4 to person, place, time, situation. Moves all ext x4 Procedures none Medications and IVs Current Medications IV Flush (NS Flush) 2 ml UNSCH PRN IVF FLUSH AFTER USING IV ACCESS; Start 05/28 at 05:15; Stop 05/28/16 at 06:37; Status DC Methylprednisolone Sodium Succinate (SoluMEDROL INJ) 125 mg ONCE ONCE IVP Last administered on 05/28/16 05:34; Start 05/28/16 at 05:15; Stop 05/28/16 at 05:16; Status DC Albuterol/ Ipratropium 1 ampule 1 ampule Q15M INH Last administered on 05:47; Start 05/28/16 at 05:15; Stop 05/28/16 at 05:46; Status DC Sodium Chloride 1,000 ml @ 1,000 mls/hr Q1H ONCE IV Last administered on 05:35; Start 05/28/16 at 05:17; Stop 05/28/16 at 06:24; Status DC Ceftriaxone Sodium/Sodium Chloride (Rocephin Inj/NS Inj) 100 ml @ 200 mls/hr ONCE ONCE IV Last administered on 05/28/16 05:35; Start 05/28/16 at 05:30; Stop 05/28/16 at 05:59; Status DC Azithromycin (Zithromax) 500 mg DAILY PO Last administered on 06/01/16 09:52; Start 05/28/16 at 09:00 Acetaminophen (Tylenol) 650 mg ONCE ONCE PO Last administered on 05/28/16 05: 57; Start 05/28/16 at 05:45; Stop 05/28/16 at 05:46; Status DC Aspirin (Aspirin) 325 mg ONCE ONCE PO Last administered on 05/28/16 06:06; Start 05/28/16 at 06:00; Stop 05/28/16 at 06:04; Status DC Nitroglycerin (Nitroglycerin 2% Oint) 1 inch ONCE ONCE TOP Last administered on 05/28/16 06:07; Start 05/28/16 at 06:00; Stop 05/28/16 at 06:04; Status DC Metoprolol Tartrate (Lopressor Inj) 5 mg Q5M IVS Last administered on 06:06; Start 05/28/16 at 06:00; Stop 05/28/16 at 06:11; Status DC Enoxaparin Sodium (Lovenox Inj) 110 mg ONCE ONCE SQ Last administered on 06:07; Start 05/28/16 at 06:00; Stop 05/28/16 at 06:04; Status DC IV Flush (NS Flush) 2 ml UNSCH PRN FLUSH FLUSH AFTER USING IV ACCESS; Start at 06:30 IV Flush (NS Flush) 2 ml BID FLUSH Last administered on 06/01/16 09:52; Start 05/28/16 at 09:00 Enoxaparin Sodium (Lovenox Inj) 40 mg Q24H SQ ; Start 05/28/16 at 09:00; Stop at 09:00; Status DC Naloxone HCl (Narcan Inj) 0.4 mg UNSCH PRN IV SEE LABEL COMMENTS; Start at 06:30 Nitroglycerin (Nitrostat Sl) 0.4 mg Q5M PRN SL CHEST PAIN; Start 05/28/16 at 06 :30 Aspirin (Aspirin Chew) 81 mg DAILY CHEW Last administered on 06/01/16 09:52; Start 05/28/16 at 09:00 Carbidopa/Levodopa (Sinemet 25-100 Mg) 1 tab HS PO Last administered on 21:24; Start 05/28/16 at 21:00 Furosemide (Lasix) 40 mg BID@09,18 PO Last administered on 06/01/16 09:53; Start 05/28/16 at 09:00 Pravastatin Sodium 40 mg 40 mg DAILY PO Last administered on 06/01/16 09:52; Start 05/28/16 at 09:00 Levofloxacin/ Dextrose (Levaquin 750 Mg Premix Inj) 150 ml @ 100 mls/hr Q24H IV Last administered on 06/01/16 05:58; Start 05/28/16 at 06:00 Enoxaparin Sodium (Lovenox Inj) 110 mg Q12H SQ Last administered on 05/31/16 06:38; Start 05/28/16 at 18:00; Stop 05/31/16 at 10:13; Status DC Albuterol/ Ipratropium (Duoneb Neb) 1 ampule Q4HR NEB NEB Last administered on 06/01/16 04:58; Start 05/28/16 at 08:00; Stop 06/01/16 at 08:00; Status DC Albuterol Sulfate (Albuterol Neb) 1.25 mg Q2HR NEB PRN NEB SHORTNESS OF BREATH Last administered on 06/01/16 08:35; Start 05/28/16 at 08:00 Methylprednisolone Sodium Succinate (SoluMEDROL INJ) 40 mg Q8HR IV PUSH Last administered on 05/31/16 06:38; Start 05/28/16 at 14:00; Stop 05/31/16 at 10:13 ; Status DC Dextrose (D50w (Vial) Inj) 25 ml UNSCH PRN IV PUSH HYPOGLYCEMIA-SEE COMMENTS; Start 05/28/16 at 08:15 Glucagon (Glucagon Inj) 1 mg UNSCH PRN OTHER HYPOGLYCEMIA-SEE COMMENTS; Start 05/28/16 at 08:15 Insulin Aspart (NovoLOG SUPPLEMENTAL SCALE) 1 ACHS SLIDING SCALE SQ Last administered on 06/01/16 05:58; Start 05/28/16 at 11:00 Lisinopril (Prinivil) 2.5 mg DAILY PO Last administered on 06/01/16 09:52; Start 05/28/16 at 09:00 Miscellaneous (Pill Splitter) 1 ea UNSCH PRN OTHER SEE LABEL COMMENTS; Start at 08:45 Insulin Detemir (Levemir Inj) 10 units HS SQ Last administered on 05/31/16 21: 00; Start 05/30/16 at 21:00 Regadenoson (Lexiscan Inj) 0.4 mg STK-MED ONCE .ROUTE Last administered on 05/30 12:15; Start 05/30/16 at 12:15; Stop 05/30/16 at 12:16; Status DC Methylprednisolone Sodium Succinate (SoluMEDROL INJ) 20 mg Q8HR IV PUSH Last administered on 06/01/16 05:56; Start 05/31/16 at 14:00 Enoxaparin Sodium (Lovenox Inj) 40 mg Q24H SQ Last administered on 06/01/16 09 :52; Start 06/01/16 at 09:00 Acetaminophen (Tylenol) 500 mg Q6H PRN PO HEADACHE Last administered on 21:24; Start 05/31/16 at 21:00 A/P Assessment and Plan A/P - NSTEMI continue aspirin and statin- stress test with no significant ischemia- cardiology will see PRN. -acute on chronic hypoxemic respiratory failure due to COPD exacerbation- improving slowly continue neb treatment and IV steroid along with antibiotics- blood cultures negative so far.will titrate down the oxygen slowly. pulmonary following. -diabetes mellitus; hold metformin- will increase levemir-continue accu-check with SSI for now -hypertension/ dyslipidemia; resumed home meds -DVT prophylaxis; on lovenox Discharge Planning possible discharge within the next one-two days. Meaghan Rolon MD Jun 01, 2016 10:47
--- NOTE | 2016-06-01 14:55 | HHI.PR ---
Subjective Remarks Alert up in chair No SOB Objective Vital Signs Date Time Temp Pulse Resp B/P Pulse Ox O2 Delivery O2 Flow Rate FiO2 06/01/16 13:00 94 06/01/16 12:00 76 06/01/16 11:50 98.6 80 18 118/65 95 06/01/16 11:00 86 06/01/16 10:00 84 06/01/16 09:00 102 06/01/16 08:37 91 Nasal Cannula 3.00 06/01/16 08:37 91 06/01/16 08:00 88 06/01/16 07:45 97.7 79 18 122/75 94 06/01/16 07:00 69 06/01/16 04:56 99 50 06/01/16 03:00 72 06/01/16 02:00 70 06/01/16 01:00 78 06/01/16 00:49 96.9 85 20 142/81 98 06/01/16 00:00 72 05/31/16 23:00 82 05/31/16 22:53 95 50 05/31/16 22:00 90 05/31/16 21:00 100 05/31/16 20:34 93 Nasal Cannula 3.00 05/31/16 20:00 96.9 86 18 124/73 91 05/31/16 20:00 92 05/31/16 19:00 94 05/31/16 18:00 76 05/31/16 17:00 98 05/31/16 16:00 88 05/31/16 15:00 98.2 89 18 131/73 93 05/31/16 15:00 84 I/O 05/31/16 05/31/16 05/31/16 06/01/16 06/01/16 06/01/16 07:00 15:00 23:00 07:00 15:00 23:00 Intake Total 250 ml 1300 ml 690 ml Output Total 800 ml Balance 250 ml 1300 ml -110 ml Intake Oral 250 ml 100 ml 540 ml IV Total 1200 ml 150 ml Output Urine Total 800 ml # Voids 2 5 3 # Bowel Movements 2 1 2 Result Diagram: 05/29/16 0357 05/29/16 0357 Objective Remarks GENERAL: SKIN: Warm and dry. HEAD: Atraumatic. Normocephalic. EYES: Pupils equal and round. No scleral icterus. No injection or drainage. ENT: No nasal bleeding or discharge. Mucous membranes pink and moist. NECK: Trachea midline. No JVD. CARDIOVASCULAR: Regular rate and rhythm. RESPIRATORY: No accessory muscle use. Clear to auscultation. Breath sounds equal bilaterally. GASTROINTESTINAL: Abdomen soft, non-tender, nondistended. Hepatic and splenic margins not palpable. MUSCULOSKELETAL: Extremities without clubbing, cyanosis, or edema. No obvious deformities. NEUROLOGICAL: Awake and alert. No obvious cranial nerve deficits. Motor grossly within normal limits. Five out of 5 muscle strength in the arms and legs. Normal speech. PSYCHIATRIC: Appropriate mood and affect; insight and judgment normal. 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
[2016-06-01] MEDS: CARBIDOPA/LEVODOPA 25 MG/100 MG TAB PO SCH (21:14)
[2016-06-01] MEDS: INSULIN DETEMIR 100 UNITS/ML VIAL SQ SCH (21:14)
[2016-06-02] VITALS (27 sets, daily range): BP systolic 106–133; BP diastolic 57–86; PULSE 69–105; RESP 16–20; TEMP 97.8–98.6; O2SAT 94–100
[2016-06-02] MEDS: methylPREDNISolone SOD SUCC 40 MG/1 ML VIAL IV PUSH SCH ×2 (06:07→19:52)
[2016-06-02] MEDS: LEVOFLOXACIN 750 MG PREMIX INJ 150 ML IV SCH (06:08)
[2016-06-02] MEDS: INSULIN ASPART SUPPLEMENTAL SCALE SQ SCH ×4 (06:12→19:54)
[2016-06-02] MEDS: ENOXAPARIN SODIUM 40 MG/0.4 ML SYRINGE SQ SCH (08:08)
[2016-06-02] MEDS: PRAVASTATIN SOD 40 MG TAB PO SCH (08:08)
[2016-06-02] MEDS: LISINOPRIL 5 MG TAB PO SCH (08:09)
[2016-06-02] MEDS: SODIUM CHLORIDE 0.9% FLUSH 5 ML FLUSH FLUSH SCH ×2 (08:09→19:50)
[2016-06-02] MEDS: FUROSEMIDE 40 MG TAB PO SCH ×2 (08:09→17:04)
[2016-06-02] MEDS: AZITHROMYCIN 250 MG TAB PO SCH (08:09)
[2016-06-02] MEDS: ASPIRIN 81 MG CHEW TAB CHEW SCH (08:09)
--- NOTE | 2016-06-02 09:35 | HHI.PR ---
Subjective Remarks in no acute distress. however on four liters of oxygen via N/C. no other new complaints. Objective Vitals Vital Signs Date Time Temp Pulse Resp B/P Pulse Ox O2 Delivery O2 Flow Rate FiO2 06/02/16 06:00 81 06/02/16 05:00 80 06/02/16 04:05 99 50 06/02/16 04:00 Bi-Pap 06/02/16 04:00 98.1 76 20 123/57 100 06/02/16 04:00 72 06/02/16 03:00 74 06/02/16 02:00 69 06/02/16 01:00 81 06/02/16 00:00 72 06/02/16 00:00 98.6 72 20 133/86 96 06/01/16 23:45 97 50 06/01/16 23:00 81 06/01/16 22:21 Nasal Cannula 4.00 06/01/16 22:00 87 06/01/16 21:00 84 06/01/16 20:00 98.3 83 20 116/70 95 06/01/16 20:00 83 06/01/16 18:16 99 06/01/16 17:00 104 06/01/16 16:03 78 06/01/16 15:40 99.0 94 18 138/74 94 06/01/16 15:05 102 06/01/16 14:00 94 06/01/16 13:00 94 06/01/16 12:00 76 06/01/16 11:50 98.6 80 18 118/65 95 06/01/16 11:00 86 06/01/16 10:00 84 I/O 06/01/16 06/01/16 06/01/16 06/02/16 06/02/16 06/02/16 07:00 15:00 23:00 07:00 15:00 23:00 Intake Total 690 ml 480 ml 482 ml Output Total 800 ml 675 ml 700 ml Balance -110 ml -195 ml -218 ml Intake Oral 540 ml 480 ml 480 ml IV Total 150 ml 2 ml Output Urine Total 800 ml 675 ml 700 ml # Voids 3 2 # Bowel Movements 1 2 2 0 Result Diagram: 05/29/167 05/29/16356 Imaging Last Impressions Myocardial Perfusion Scan Nuc Med 05/30/16 0700 Signed Impressions: Service Date/Time: May 10:55 - CONCLUSION: 1. No significant reversibility to suggest ischemia. 2. Wall motion just within normal limits with ejection fraction at 50%%. RISK CATEGORY: Low (<1%% Annual Mortality Rate) Yeyo Winn MD Chest X-Ray 05/28/1614 Signed Impressions: Service Date/Time: Saturday, May 28, 2016 05:26 - CONCLUSION: 1. Cardiomegaly. No acute pulmonary disease. Gerardo Jaimes MD Objective Remarks GENERAL: This is a well-nourished, well-developed patient, in no apparent distress. CARDIOVASCULAR: Regular rate and regular rhythm without murmurs, gallops, or rubs. RESPIRATORY: better air entry bilaterally GASTROINTESTINAL: Abdomen soft, non-tender, nondistended. Normal, active bowel sounds MUSCULOSKELETAL: Extremities without clubbing, cyanosis, or edema. NEURO: Alert & Oriented x4 to person, place, time, situation. Moves all ext x4 Procedures none Medications and IVs Current Medications IV Flush (NS Flush) 2 ml UNSCH PRN IVF FLUSH AFTER USING IV ACCESS; Start 05/28 at 05:15; Stop 05/28/16 at 06:37; Status DC Methylprednisolone Sodium Succinate (SoluMEDROL INJ) 125 mg ONCE ONCE IVP Last administered on 05/28/16 05:34; Start 05/28/16 at 05:15; Stop 05/28/16 at 05:16; Status DC Albuterol/ Ipratropium 1 ampule 1 ampule Q15M INH Last administered on 05:47; Start 05/28/16 at 05:15; Stop 05/28/16 at 05:46; Status DC Sodium Chloride 1,000 ml @ 1,000 mls/hr Q1H ONCE IV Last administered on 05:35; Start 05/28/16 at 05:17; Stop 05/28/16 at 06:24; Status DC Ceftriaxone Sodium/Sodium Chloride (Rocephin Inj/NS Inj) 100 ml @ 200 mls/hr ONCE ONCE IV Last administered on 05/28/16 05:35; Start 05/28/16 at 05:30; Stop 05/28/16 at 05:59; Status DC Azithromycin (Zithromax) 500 mg DAILY PO Last administered on 06/02/16 08:09; Start 05/28/16 at 09:00 Acetaminophen (Tylenol) 650 mg ONCE ONCE PO Last administered on 05/28/16 05: 57; Start 05/28/16 at 05:45; Stop 05/28/16 at 05:46; Status DC Aspirin (Aspirin) 325 mg ONCE ONCE PO Last administered on 05/28/16 06:06; Start 05/28/16 at 06:00; Stop 05/28/16 at 06:04; Status DC Nitroglycerin (Nitroglycerin 2% Oint) 1 inch ONCE ONCE TOP Last administered on 05/28/16 06:07; Start 05/28/16 at 06:00; Stop 05/28/16 at 06:04; Status DC Metoprolol Tartrate (Lopressor Inj) 5 mg Q5M IVS Last administered on 06:06; Start 05/28/16 at 06:00; Stop 05/28/16 at 06:11; Status DC Enoxaparin Sodium (Lovenox Inj) 110 mg ONCE ONCE SQ Last administered on 06:07; Start 05/28/16 at 06:00; Stop 05/28/16 at 06:04; Status DC IV Flush (NS Flush) 2 ml UNSCH PRN FLUSH FLUSH AFTER USING IV ACCESS; Start at 06:30 IV Flush (NS Flush) 2 ml BID FLUSH Last administered on 06/02/16 08:09; Start 05/28/16 at 09:00 Enoxaparin Sodium (Lovenox Inj) 40 mg Q24H SQ ; Start 05/28/16 at 09:00; Stop at 09:00; Status DC Naloxone HCl (Narcan Inj) 0.4 mg UNSCH PRN IV SEE LABEL COMMENTS; Start at 06:30 Nitroglycerin (Nitrostat Sl) 0.4 mg Q5M PRN SL CHEST PAIN; Start 05/28/16 at 06 :30 Aspirin (Aspirin Chew) 81 mg DAILY CHEW Last administered on 06/02/16 08:09; Start 05/28/16 at 09:00 Carbidopa/Levodopa (Sinemet 25-100 Mg) 1 tab HS PO Last administered on 21:14; Start 05/28/16 at 21:00 Furosemide (Lasix) 40 mg BID@09,18 PO Last administered on 06/02/16 08:09; Start 05/28/16 at 09:00 Pravastatin Sodium 40 mg 40 mg DAILY PO Last administered on 06/02/16 08:08; Start 05/28/16 at 09:00 Levofloxacin/ Dextrose (Levaquin 750 Mg Premix Inj) 150 ml @ 100 mls/hr Q24H IV Last administered on 06/02/16 06:08; Start 05/28/16 at 06:00 Enoxaparin Sodium (Lovenox Inj) 110 mg Q12H SQ Last administered on 05/31/16 06:38; Start 05/28/16 at 18:00; Stop 05/31/16 at 10:13; Status DC Albuterol/ Ipratropium (Duoneb Neb) 1 ampule Q4HR NEB NEB Last administered on 06/01/16 04:58; Start 05/28/16 at 08:00; Stop 06/01/16 at 08:00; Status DC Albuterol Sulfate (Albuterol Neb) 1.25 mg Q2HR NEB PRN NEB SHORTNESS OF BREATH Last administered on 06/01/16 12:20; Start 05/28/16 at 08:00 Methylprednisolone Sodium Succinate (SoluMEDROL INJ) 40 mg Q8HR IV PUSH Last administered on 05/31/16 06:38; Start 05/28/16 at 14:00; Stop 05/31/16 at 10:13 ; Status DC Dextrose (D50w (Vial) Inj) 25 ml UNSCH PRN IV PUSH HYPOGLYCEMIA-SEE COMMENTS; Start 05/28/16 at 08:15 Glucagon (Glucagon Inj) 1 mg UNSCH PRN OTHER HYPOGLYCEMIA-SEE COMMENTS; Start 05/28/16 at 08:15 Insulin Aspart (NovoLOG SUPPLEMENTAL SCALE) 1 ACHS SLIDING SCALE SQ Last administered on 06/01/16 21:15; Start 05/28/16 at 11:00 Lisinopril (Prinivil) 2.5 mg DAILY PO Last administered on 06/02/16 08:09; Start 05/28/16 at 09:00 Miscellaneous (Pill Splitter) 1 ea UNSCH PRN OTHER SEE LABEL COMMENTS; Start at 08:45 Insulin Detemir (Levemir Inj) 10 units HS SQ Last administered on 05/31/16 21: 00; Start 05/30/16 at 21:00; Stop 06/01/16 at 10:48; Status DC Regadenoson (Lexiscan Inj) 0.4 mg STK-MED ONCE .ROUTE Last administered on 05/30 12:15; Start 05/30/16 at 12:15; Stop 05/30/16 at 12:16; Status DC Methylprednisolone Sodium Succinate (SoluMEDROL INJ) 20 mg Q8HR IV PUSH Last administered on 06/02/16 06:07; Start 05/31/16 at 14:00 Enoxaparin Sodium (Lovenox Inj) 40 mg Q24H SQ Last administered on 06/02/16 08 :08; Start 06/01/16 at 09:00 Acetaminophen (Tylenol) 500 mg Q6H PRN PO HEADACHE Last administered on 21:24; Start 05/31/16 at 21:00 Insulin Detemir (Levemir Inj) 14 units HS SQ Last administered on 06/01/16 21: 14; Start 06/01/16 at 21:00 A/P Assessment and Plan A/P - NSTEMI continue aspirin and statin- stress test with no significant ischemia- cardiology will see PRN. -acute on chronic hypoxemic respiratory failure due to COPD exacerbation- improving slowly continue neb treatment and IV steroid along with antibiotics- blood cultures negative so far.will titrate down the oxygen slowly. pulmonary following. -diabetes mellitus; hold metformin- continue levemir-continue accu-check with SSI for now -hypertension/ dyslipidemia; resumed home meds -DVT prophylaxis; on lovenox Discharge Planning possible discharge in am if stable. Meaghan Rolon MD Jun 02, 2016 09:35
--- NOTE | 2016-06-02 13:10 | HHI.PR ---
Subjective Remarks Alert up in chair No SOB Objective Vital Signs Date Time Temp Pulse Resp B/P Pulse Ox O2 Delivery O2 Flow Rate FiO2 06/02/16 11:00 97.8 90 16 106/60 95 06/02/16 10:11 96 Nasal Cannula 3.00 06/02/16 08:05 96 Nasal Cannula 3.00 06/02/16 08:00 97.9 86 16 119/76 96 06/02/16 06:00 81 06/02/16 05:00 80 06/02/16 04:05 99 50 06/02/16 04:00 Bi-Pap 06/02/16 04:00 98.1 76 20 123/57 100 06/02/16 04:00 72 06/02/16 03:00 74 06/02/16 02:00 69 06/02/16 01:00 81 06/02/16 00:00 72 06/02/16 00:00 98.6 72 20 133/86 96 06/01/16 23:45 97 50 06/01/16 23:00 81 06/01/16 22:21 Nasal Cannula 4.00 06/01/16 22:00 87 06/01/16 21:00 84 06/01/16 20:00 98.3 83 20 116/70 95 06/01/16 20:00 83 06/01/16 18:16 99 06/01/16 17:00 104 06/01/16 16:03 78 06/01/16 15:40 99.0 94 18 138/74 94 06/01/16 15:05 102 06/01/16 14:00 94 I/O 06/01/16 06/01/16 06/01/16 06/02/16 06/02/16 06/02/16 07:00 15:00 23:00 07:00 15:00 23:00 Intake Total 690 ml 480 ml 482 ml Output Total 800 ml 675 ml 700 ml Balance -110 ml -195 ml -218 ml Intake Oral 540 ml 480 ml 480 ml IV Total 150 ml 2 ml Output Urine Total 800 ml 675 ml 700 ml # Voids 3 2 # Bowel Movements 1 2 2 0 Result Diagram: 05/29/16 0357 05/29/16 0357 Objective Remarks GENERAL: SKIN: Warm and dry. HEAD: Atraumatic. Normocephalic. EYES: Pupils equal and round. No scleral icterus. No injection or drainage. ENT: No nasal bleeding or discharge. Mucous membranes pink and moist. NECK: Trachea midline. No JVD. CARDIOVASCULAR: Regular rate and rhythm. RESPIRATORY: No accessory muscle use. Clear to auscultation. Breath sounds equal bilaterally. GASTROINTESTINAL: Abdomen soft, non-tender, nondistended. Hepatic and splenic margins not palpable. MUSCULOSKELETAL: Extremities without clubbing, cyanosis, or edema. No obvious deformities. NEUROLOGICAL: Awake and alert. No obvious cranial nerve deficits. Motor grossly within normal limits. Five out of 5 muscle strength in the arms and legs. Normal speech. PSYCHIATRIC: Appropriate mood and affect; insight and judgment normal. Assessment and Plan Assessment and Plan CLARI COPD CAD PLAN FOR CARDIAC CATH BRONCHODILATOR THERAPY INCREASE ACTIVITY Jon,Jon Alberto MD Jun 02, 2016 13:10
[2016-06-02] MEDS: CARBIDOPA/LEVODOPA 25 MG/100 MG TAB PO SCH (19:52)
[2016-06-02] MEDS: INSULIN DETEMIR 100 UNITS/ML VIAL SQ SCH (19:53)
[2016-06-02] MEDS: RESP: ALBUTEROL 1.25 MG/3 ML NEB (PRN) NEB (21:33)
[2016-06-03] VITALS (28 sets, daily range): BP systolic 97–128; BP diastolic 49–77; PULSE 70–106; RESP 18–20; TEMP 98–98.9; O2SAT 90–99
[2016-06-03] MEDS: INSULIN ASPART SUPPLEMENTAL SCALE SQ SCH ×4 (05:34→21:36)
[2016-06-03] MEDS: LEVOFLOXACIN 750 MG PREMIX INJ 150 ML IV SCH (05:34)
--- NOTE | 2016-06-03 08:06 | HHI.PR ---
Subjective Remarks in no acute distress. but still with some exertional dyspnea. no other complaints. Objective Vitals Vital Signs Date Time Temp Pulse Resp B/P Pulse Ox O2 Delivery O2 Flow Rate FiO2 06/03/16 06:03 78 06/03/16 05:42 96 50 06/03/16 05:00 73 06/03/16 04:00 83 06/03/16 04:00 Bi-Pap 06/03/16 04:00 98.1 83 18 101/49 99 06/03/16 03:00 76 06/03/16 02:00 71 06/03/16 01:00 70 06/03/16 00:41 92 50 06/03/16 00:00 73 06/03/16 00:00 Bi-Pap 06/03/16 00:00 98.3 73 18 105/64 96 06/02/16 23:00 79 06/02/16 22:00 84 06/02/16 21:41 98 50 06/02/16 21:00 88 06/02/16 20:00 98.6 90 18 111/70 94 06/02/16 20:00 90 06/02/16 20:00 Nasal Cannula 3.00 06/02/16 18:15 95 Nasal Cannula 3.00 06/02/16 18:11 105 06/02/16 17:00 92 06/02/16 16:00 90 06/02/16 15:00 98.0 87 18 114/69 95 06/02/16 15:00 97 06/02/16 14:00 104 06/02/16 13:00 98 06/02/16 12:00 88 06/02/16 11:00 91 06/02/16 11:00 97.8 90 16 106/60 95 06/02/16 10:11 96 Nasal Cannula 3.00 06/02/16 10:00 98 06/02/16 09:00 98 06/02/16 08:05 96 Nasal Cannula 3.00 I/O 06/02/16 06/02/16 06/02/16 06/03/16 06/03/16 06/03/16 07:00 15:00 23:00 07:00 15:00 23:00 Intake Total 482 ml 800 ml 490 ml Output Total 700 ml 600 ml 700 ml Balance -218 ml 200 ml -210 ml Intake Oral 480 ml 800 ml 480 ml IV Total 2 ml 10 ml Output Urine Total 700 ml 600 ml 700 ml # Bowel Movements 0 2 0 Imaging Last Impressions Myocardial Perfusion Scan Nuc Med 05/30/16 0700 Signed Impressions: Service Date/Time: May 10:55 - CONCLUSION: 1. No significant reversibility to suggest ischemia. 2. Wall motion just within normal limits with ejection fraction at 50%%. RISK CATEGORY: Low (<1%% Annual Mortality Rate) Yeyo Winn MD Chest X-Ray 05/28/1614 Signed Impressions: Service Date/Time: Saturday, May 28, 2016 05:26 - CONCLUSION: 1. Cardiomegaly. No acute pulmonary disease. Gerardo Jaimes MD Objective Remarks GENERAL: This is a well-nourished, well-developed patient, in no apparent distress. CARDIOVASCULAR: Regular rate and regular rhythm without murmurs, gallops, or rubs. RESPIRATORY: better air entry bilaterally GASTROINTESTINAL: Abdomen soft, non-tender, nondistended. Normal, active bowel sounds MUSCULOSKELETAL: Extremities without clubbing, cyanosis, or edema. NEURO: Alert & Oriented x4 to person, place, time, situation. Moves all ext x4 Procedures none Medications and IVs Current Medications IV Flush (NS Flush) 2 ml UNSCH PRN IVF FLUSH AFTER USING IV ACCESS; Start 05/28 at 05:15; Stop 05/28/16 at 06:37; Status DC Methylprednisolone Sodium Succinate (SoluMEDROL INJ) 125 mg ONCE ONCE IVP Last administered on 05/28/16 05:34; Start 05/28/16 at 05:15; Stop 05/28/16 at 05:16; Status DC Albuterol/ Ipratropium 1 ampule 1 ampule Q15M INH Last administered on 05:47; Start 05/28/16 at 05:15; Stop 05/28/16 at 05:46; Status DC Sodium Chloride 1,000 ml @ 1,000 mls/hr Q1H ONCE IV Last administered on 05:35; Start 05/28/16 at 05:17; Stop 05/28/16 at 06:24; Status DC Ceftriaxone Sodium/Sodium Chloride (Rocephin Inj/NS Inj) 100 ml @ 200 mls/hr ONCE ONCE IV Last administered on 05/28/16 05:35; Start 05/28/16 at 05:30; Stop 05/28/16 at 05:59; Status DC Azithromycin (Zithromax) 500 mg DAILY PO Last administered on 06/02/16 08:09; Start 05/28/16 at 09:00 Acetaminophen (Tylenol) 650 mg ONCE ONCE PO Last administered on 05/28/16 05: 57; Start 05/28/16 at 05:45; Stop 05/28/16 at 05:46; Status DC Aspirin (Aspirin) 325 mg ONCE ONCE PO Last administered on 05/28/16 06:06; Start 05/28/16 at 06:00; Stop 05/28/16 at 06:04; Status DC Nitroglycerin (Nitroglycerin 2% Oint) 1 inch ONCE ONCE TOP Last administered on 05/28/16 06:07; Start 05/28/16 at 06:00; Stop 05/28/16 at 06:04; Status DC Metoprolol Tartrate (Lopressor Inj) 5 mg Q5M IVS Last administered on 06:06; Start 05/28/16 at 06:00; Stop 05/28/16 at 06:11; Status DC Enoxaparin Sodium (Lovenox Inj) 110 mg ONCE ONCE SQ Last administered on 06:07; Start 05/28/16 at 06:00; Stop 05/28/16 at 06:04; Status DC IV Flush (NS Flush) 2 ml UNSCH PRN FLUSH FLUSH AFTER USING IV ACCESS; Start at 06:30 IV Flush (NS Flush) 2 ml BID FLUSH Last administered on 06/02/16 19:50; Start 05/28/16 at 09:00 Enoxaparin Sodium (Lovenox Inj) 40 mg Q24H SQ ; Start 05/28/16 at 09:00; Stop at 09:00; Status DC Naloxone HCl (Narcan Inj) 0.4 mg UNSCH PRN IV SEE LABEL COMMENTS; Start at 06:30 Nitroglycerin (Nitrostat Sl) 0.4 mg Q5M PRN SL CHEST PAIN; Start 05/28/16 at 06 :30 Aspirin (Aspirin Chew) 81 mg DAILY CHEW Last administered on 06/02/16 08:09; Start 05/28/16 at 09:00 Carbidopa/Levodopa (Sinemet 25-100 Mg) 1 tab HS PO Last administered on 19:52; Start 05/28/16 at 21:00 Furosemide (Lasix) 40 mg BID@09,18 PO Last administered on 06/02/16 17:04; Start 05/28/16 at 09:00 Pravastatin Sodium 40 mg 40 mg DAILY PO Last administered on 06/02/16 08:08; Start 05/28/16 at 09:00 Levofloxacin/ Dextrose (Levaquin 750 Mg Premix Inj) 150 ml @ 100 mls/hr Q24H IV Last administered on 06/03/16 05:34; Start 05/28/16 at 06:00 Enoxaparin Sodium (Lovenox Inj) 110 mg Q12H SQ Last administered on 05/31/16 06:38; Start 05/28/16 at 18:00; Stop 05/31/16 at 10:13; Status DC Albuterol/ Ipratropium (Duoneb Neb) 1 ampule Q4HR NEB NEB Last administered on 06/01/16 04:58; Start 05/28/16 at 08:00; Stop 06/01/16 at 08:00; Status DC Albuterol Sulfate (Albuterol Neb) 1.25 mg Q2HR NEB PRN NEB SHORTNESS OF BREATH Last administered on 06/02/16 21:33; Start 05/28/16 at 08:00 Methylprednisolone Sodium Succinate (SoluMEDROL INJ) 40 mg Q8HR IV PUSH Last administered on 05/31/16 06:38; Start 05/28/16 at 14:00; Stop 05/31/16 at 10:13 ; Status DC Dextrose (D50w (Vial) Inj) 25 ml UNSCH PRN IV PUSH HYPOGLYCEMIA-SEE COMMENTS; Start 05/28/16 at 08:15 Glucagon (Glucagon Inj) 1 mg UNSCH PRN OTHER HYPOGLYCEMIA-SEE COMMENTS; Start 05/28/16 at 08:15 Insulin Aspart (NovoLOG SUPPLEMENTAL SCALE) 1 ACHS SLIDING SCALE SQ Last administered on 06/02/16 19:54; Start 05/28/16 at 11:00 Lisinopril (Prinivil) 2.5 mg DAILY PO Last administered on 06/02/16 08:09; Start 05/28/16 at 09:00 Miscellaneous (Pill Splitter) 1 ea UNSCH PRN OTHER SEE LABEL COMMENTS; Start at 08:45 Insulin Detemir (Levemir Inj) 10 units HS SQ Last administered on 05/31/16 21: 00; Start 05/30/16 at 21:00; Stop 06/01/16 at 10:48; Status DC Regadenoson (Lexiscan Inj) 0.4 mg STK-MED ONCE .ROUTE Last administered on 05/30 12:15; Start 05/30/16 at 12:15; Stop 05/30/16 at 12:16; Status DC Methylprednisolone Sodium Succinate (SoluMEDROL INJ) 20 mg Q8HR IV PUSH Last administered on 06/02/16 06:07; Start 05/31/16 at 14:00; Stop 06/02/16 at 09:34 ; Status DC Enoxaparin Sodium (Lovenox Inj) 40 mg Q24H SQ Last administered on 06/02/16 08 :08; Start 06/01/16 at 09:00 Acetaminophen (Tylenol) 500 mg Q6H PRN PO HEADACHE Last administered on 21:24; Start 05/31/16 at 21:00 Insulin Detemir (Levemir Inj) 14 units HS SQ Last administered on 06/02/16 19: 53; Start 06/01/16 at 21:00 Methylprednisolone Sodium Succinate (SoluMEDROL INJ) 20 mg Q12HR IV PUSH Last administered on 06/02/16 19:52; Start 06/02/16 at 21:00 A/P Assessment and Plan A/P - NSTEMI continue aspirin and statin- stress test with no significant ischemia- cardiology will see PRN. -acute on chronic hypoxemic respiratory failure due to COPD exacerbation- improving slowly continue neb treatment and steroid ; will switch to prednisone soon . along with antibiotics- blood cultures negative so far.will titrate down the oxygen slowly. pulmonary following. -diabetes mellitus; hold metformin- continue levemir-continue accu-check with SSI for now -hypertension/ dyslipidemia; resumed home meds -DVT prophylaxis; on lovenox Discharge Planning dc home in am if stable. case management for [facility]. Meaghan Rolon MD Jun 03, 2016 08:05
--- NOTE | 2016-06-03 08:06 | HHI.FF ---
Face to Face Verification Diagnosis: (1) COPD exacerbation Physical Therapy Order: Evaluate and Treat Home Health Nursing Order: Medical education Signs/symptoms of disease process Nursing assessment with vital signs I have seen patient Catracho Mcgowan on 06/03/16. My clinical findings support the need for the requested home health care services because: Patient has SOB I certify that my clinical findings support that this patient is homebound because: Hx COPD- exertion dyspnea/weakness Meaghan Rolon MD Jun 03, 2016 08:06
[2016-06-03] MEDS ORDERED: PRED5TAB PO (08:09)
--- NOTE | 2016-06-03 08:09 | HHI.DCPOC ---
Discharge Care Plan Diagnosis: (1) COPD exacerbation Your Health Problems Are: Cough Shortness of Breath Goals to Promote Your Health * To prevent worsening of your condition and complications * To maintain your health at the optimal level Directions to Meet Your Goals Take your medications as prescribed Follow your dietary instruction Follow activity as directed Keep your appointments as scheduled Take your immunizations and boosters as scheduled If your symptoms worsen call your PCP, if no PCP go to Urgent Care Center or Emergency Room Smoking is Dangerous to Your Health. Avoid second hand smoke Call the 24-hour hour crisis hotline for domestic abuse at Meaghan Rolon MD Jun 03, 2016 08:09
[2016-06-03] MEDS: ENOXAPARIN SODIUM 40 MG/0.4 ML SYRINGE SQ SCH (08:23)
[2016-06-03] MEDS: LISINOPRIL 5 MG TAB PO SCH (08:23)
[2016-06-03] MEDS: AZITHROMYCIN 250 MG TAB PO SCH (08:23)
[2016-06-03] MEDS: PRAVASTATIN SOD 40 MG TAB PO SCH (08:23)
[2016-06-03] MEDS: FUROSEMIDE 40 MG TAB PO SCH ×2 (08:23→17:35)
[2016-06-03] MEDS: ASPIRIN 81 MG CHEW TAB CHEW SCH (08:23)
[2016-06-03] MEDS: methylPREDNISolone SOD SUCC 40 MG/1 ML VIAL IV PUSH SCH ×2 (08:24→21:37)
[2016-06-03] MEDS: SODIUM CHLORIDE 0.9% FLUSH 5 ML FLUSH FLUSH SCH ×2 (08:24→21:37)
--- NOTE | 2016-06-03 17:23 | HHI.PR ---
Subjective Remarks Alert up in chair No SOB Objective Vital Signs Date Time Temp Pulse Resp B/P Pulse Ox O2 Delivery O2 Flow Rate FiO2 06/03/16 16:13 90 06/03/16 15:14 98 06/03/16 15:14 98.9 96 18 108/67 90 06/03/16 14:46 82 06/03/16 14:08 94 Nasal Cannula 3.00 06/03/16 13:00 89 06/03/16 12:39 98 06/03/16 11:35 98.2 106 18 97/52 93 06/03/16 11:35 100 06/03/16 10:22 86 06/03/16 09:20 88 06/03/16 08:00 98.0 86 20 117/73 90 06/03/16 08:00 90 Nasal Cannula 3.00 06/03/16 08:00 83 06/03/16 06:03 78 06/03/16 05:42 96 50 06/03/16 05:00 73 06/03/16 04:00 83 06/03/16 04:00 Bi-Pap 06/03/16 04:00 98.1 83 18 101/49 99 06/03/16 03:00 76 06/03/16 02:00 71 06/03/16 01:00 70 06/03/16 00:41 92 50 06/03/16 00:00 73 06/03/16 00:00 Bi-Pap 06/03/16 00:00 98.3 73 18 105/64 96 06/02/16 23:00 79 06/02/16 22:00 84 06/02/16 21:41 98 50 06/02/16 21:00 88 06/02/16 20:00 98.6 90 18 111/70 94 06/02/16 20:00 90 06/02/16 20:00 Nasal Cannula 3.00 06/02/16 18:15 95 Nasal Cannula 3.00 06/02/16 18:11 105 I/O 06/02/16 06/02/16 06/02/16 06/03/16 06/03/16 06/03/16 07:00 15:00 23:00 07:00 15:00 23:00 Intake Total 482 ml 800 ml 490 ml Output Total 700 ml 600 ml 700 ml Balance -218 ml 200 ml -210 ml Intake Oral 480 ml 800 ml 480 ml IV Total 2 ml 10 ml Output Urine Total 700 ml 600 ml 700 ml # Bowel Movements 0 2 0 Objective Remarks GENERAL: SKIN: Warm and dry. HEAD: Atraumatic. Normocephalic. EYES: Pupils equal and round. No scleral icterus. No injection or drainage. ENT: No nasal bleeding or discharge. Mucous membranes pink and moist. NECK: Trachea midline. No JVD. CARDIOVASCULAR: Regular rate and rhythm. RESPIRATORY: No accessory muscle use. Clear to auscultation. Breath sounds equal bilaterally. GASTROINTESTINAL: Abdomen soft, non-tender, nondistended. Hepatic and splenic margins not palpable. MUSCULOSKELETAL: Extremities without clubbing, cyanosis, or edema. No obvious deformities. NEUROLOGICAL: Awake and alert. No obvious cranial nerve deficits. Motor grossly within normal limits. Five out of 5 muscle strength in the arms and legs. Normal speech. PSYCHIATRIC: Appropriate mood and affect; insight and judgment normal. Assessment and Plan Assessment and Plan CLARI COPD CAD PLAN FOR CARDIAC CATH BRONCHODILATOR THERAPY INCREASE ACTIVITY Jon Webb MD Jun 03, 2016 17:23
[2016-06-03] MEDS: INSULIN DETEMIR 100 UNITS/ML VIAL SQ SCH (21:00)
[2016-06-03] MEDS: CARBIDOPA/LEVODOPA 25 MG/100 MG TAB PO SCH (21:37)
[2016-06-04] VITALS (21 sets, daily range): BP systolic 102–141; BP diastolic 54–70; PULSE 70–101; RESP 16–21; TEMP 98.6–98.7; O2SAT 92–98
[2016-06-04] MEDS: LEVOFLOXACIN 750 MG PREMIX INJ 150 ML IV SCH (06:23)
[2016-06-04] MEDS: INSULIN ASPART SUPPLEMENTAL SCALE SQ SCH ×2 (06:36→10:59)
--- NOTE | 2016-06-04 08:45 | HHI.PR ---
Subjective Remarks in no acute distress. sob has improved. now on two liters of oxygen via N/C. no new complaints. Objective Vitals Vital Signs Date Time Temp Pulse Resp B/P Pulse Ox O2 Delivery O2 Flow Rate FiO2 06/04/16 08:28 98 06/04/16 07:45 92 Nasal Cannula 2.00 06/04/16 07:45 86 06/04/16 07:44 98.6 79 17 141/63 93 06/04/16 06:00 92 06/04/16 05:12 98.6 75 21 102/54 93 06/04/16 05:00 74 06/04/16 04:24 98 50 06/04/16 04:00 70 06/04/16 03:00 76 06/04/16 02:00 86 06/04/16 01:11 96 BiPAP 50 06/04/16 01:11 96 50 06/04/16 01:00 80 06/04/16 00:12 98.6 85 16 111/62 98 06/04/16 00:00 82 06/03/16 23:00 80 06/03/16 22:16 96 50 06/03/16 22:00 82 06/03/16 21:57 90 Nasal Cannula 2.00 06/03/16 21:52 98.4 86 18 128/77 93 06/03/16 21:00 90 06/03/16 20:00 84 06/03/16 19:00 93 Nasal Cannula 3.00 06/03/16 19:00 96 06/03/16 18:18 96 06/03/16 17:31 102 06/03/16 16:13 90 06/03/16 15:14 98 06/03/16 15:14 98.9 96 18 108/67 90 06/03/16 14:46 82 06/03/16 14:08 94 Nasal Cannula 3.00 06/03/16 13:00 89 06/03/16 12:39 98 06/03/16 11:35 98.2 106 18 97/52 93 06/03/16 11:35 100 06/03/16 10:22 86 06/03/16 09:20 88 I/O 06/03/16 06/03/16 06/03/16 06/04/16 06/04/16 06/04/16 07:00 15:00 23:00 07:00 15:00 23:00 Intake Total 490 ml 720 ml 480 ml Output Total 700 ml 2400 ml 1025 ml Balance -210 ml -1680 ml -545 ml Intake Oral 480 ml 720 ml 480 ml IV Total 10 ml Output Urine Total 700 ml 2400 ml 1025 ml # Voids 1 # Bowel Movements 0 1 Imaging Last Impressions Myocardial Perfusion Scan Nuc Med 05/30/16 0700 Signed Impressions: Service Date/Time: May 10:55 - CONCLUSION: 1. No significant reversibility to suggest ischemia. 2. Wall motion just within normal limits with ejection fraction at 50%%. RISK CATEGORY: Low (<1%% Annual Mortality Rate) Yeyo Winn MD Chest X-Ray 05/28/16513 Signed Impressions: Service Date/Time: Saturday, May 28, 2016 05:26 - CONCLUSION: 1. Cardiomegaly. No acute pulmonary disease. Gerardo Jaimes MD Objective Remarks GENERAL: This is a well-nourished, well-developed patient, in no apparent distress. CARDIOVASCULAR: Regular rate and regular rhythm without murmurs, gallops, or rubs. RESPIRATORY: better air entry bilaterally GASTROINTESTINAL: Abdomen soft, non-tender, nondistended. Normal, active bowel sounds MUSCULOSKELETAL: Extremities without clubbing, cyanosis, or edema. NEURO: Alert & Oriented x4 to person, place, time, situation. Moves all ext x4 Procedures none Medications and IVs Current Medications IV Flush (NS Flush) 2 ml UNSCH PRN IVF FLUSH AFTER USING IV ACCESS; Start 05/28 at 05:15; Stop 05/28/16 at 06:37; Status DC Methylprednisolone Sodium Succinate (SoluMEDROL INJ) 125 mg ONCE ONCE IVP Last administered on 05/28/16 05:34; Start 05/28/16 at 05:15; Stop 05/28/16 at 05:16; Status DC Albuterol/ Ipratropium 1 ampule 1 ampule Q15M INH Last administered on 05:47; Start 05/28/16 at 05:15; Stop 05/28/16 at 05:46; Status DC Sodium Chloride 1,000 ml @ 1,000 mls/hr Q1H ONCE IV Last administered on 05:35; Start 05/28/16 at 05:17; Stop 05/28/16 at 06:24; Status DC Ceftriaxone Sodium/Sodium Chloride (Rocephin Inj/NS Inj) 100 ml @ 200 mls/hr ONCE ONCE IV Last administered on 05/28/16 05:35; Start 05/28/16 at 05:30; Stop 05/28/16 at 05:59; Status DC Azithromycin (Zithromax) 500 mg DAILY PO Last administered on 06/03/16 08:23; Start 05/28/16 at 09:00 Acetaminophen (Tylenol) 650 mg ONCE ONCE PO Last administered on 05/28/16 05: 57; Start 05/28/16 at 05:45; Stop 05/28/16 at 05:46; Status DC Aspirin (Aspirin) 325 mg ONCE ONCE PO Last administered on 05/28/16 06:06; Start 05/28/16 at 06:00; Stop 05/28/16 at 06:04; Status DC Nitroglycerin (Nitroglycerin 2% Oint) 1 inch ONCE ONCE TOP Last administered on 05/28/16 06:07; Start 05/28/16 at 06:00; Stop 05/28/16 at 06:04; Status DC Metoprolol Tartrate (Lopressor Inj) 5 mg Q5M IVS Last administered on 06:06; Start 05/28/16 at 06:00; Stop 05/28/16 at 06:11; Status DC Enoxaparin Sodium (Lovenox Inj) 110 mg ONCE ONCE SQ Last administered on 06:07; Start 05/28/16 at 06:00; Stop 05/28/16 at 06:04; Status DC IV Flush (NS Flush) 2 ml UNSCH PRN FLUSH FLUSH AFTER USING IV ACCESS; Start at 06:30 IV Flush (NS Flush) 2 ml BID FLUSH Last administered on 06/03/16 21:37; Start 05/28/16 at 09:00 Enoxaparin Sodium (Lovenox Inj) 40 mg Q24H SQ ; Start 05/28/16 at 09:00; Stop at 09:00; Status DC Naloxone HCl (Narcan Inj) 0.4 mg UNSCH PRN IV SEE LABEL COMMENTS; Start at 06:30 Nitroglycerin (Nitrostat Sl) 0.4 mg Q5M PRN SL CHEST PAIN; Start 05/28/16 at 06 :30 Aspirin (Aspirin Chew) 81 mg DAILY CHEW Last administered on 06/03/16 08:23; Start 05/28/16 at 09:00 Carbidopa/Levodopa (Sinemet 25-100 Mg) 1 tab HS PO Last administered on 21:37; Start 05/28/16 at 21:00 Furosemide (Lasix) 40 mg BID@09,18 PO Last administered on 06/03/16 17:35; Start 05/28/16 at 09:00 Pravastatin Sodium 40 mg 40 mg DAILY PO Last administered on 06/03/16 08:23; Start 05/28/16 at 09:00 Levofloxacin/ Dextrose (Levaquin 750 Mg Premix Inj) 150 ml @ 100 mls/hr Q24H IV Last administered on 06/04/16 06:23; Start 05/28/16 at 06:00 Enoxaparin Sodium (Lovenox Inj) 110 mg Q12H SQ Last administered on 05/31/16 06:38; Start 05/28/16 at 18:00; Stop 05/31/16 at 10:13; Status DC Albuterol/ Ipratropium (Duoneb Neb) 1 ampule Q4HR NEB NEB Last administered on 06/01/16 04:58; Start 05/28/16 at 08:00; Stop 06/01/16 at 08:00; Status DC Albuterol Sulfate (Albuterol Neb) 1.25 mg Q2HR NEB PRN NEB SHORTNESS OF BREATH Last administered on 06/02/16 21:33; Start 05/28/16 at 08:00 Methylprednisolone Sodium Succinate (SoluMEDROL INJ) 40 mg Q8HR IV PUSH Last administered on 05/31/16 06:38; Start 05/28/16 at 14:00; Stop 05/31/16 at 10:13 ; Status DC Dextrose (D50w (Vial) Inj) 25 ml UNSCH PRN IV PUSH HYPOGLYCEMIA-SEE COMMENTS; Start 05/28/16 at 08:15 Glucagon (Glucagon Inj) 1 mg UNSCH PRN OTHER HYPOGLYCEMIA-SEE COMMENTS; Start 05/28/16 at 08:15 Insulin Aspart (NovoLOG SUPPLEMENTAL SCALE) 1 ACHS SLIDING SCALE SQ Last administered on 06/04/16 06:36; Start 05/28/16 at 11:00 Lisinopril (Prinivil) 2.5 mg DAILY PO Last administered on 06/03/16 08:23; Start 05/28/16 at 09:00 Miscellaneous (Pill Splitter) 1 ea UNSCH PRN OTHER SEE LABEL COMMENTS; Start at 08:45 Insulin Detemir (Levemir Inj) 10 units HS SQ Last administered on 05/31/16 21: 00; Start 05/30/16 at 21:00; Stop 06/01/16 at 10:48; Status DC Regadenoson (Lexiscan Inj) 0.4 mg STK-MED ONCE .ROUTE Last administered on 05/30 12:15; Start 05/30/16 at 12:15; Stop 05/30/16 at 12:16; Status DC Methylprednisolone Sodium Succinate (SoluMEDROL INJ) 20 mg Q8HR IV PUSH Last administered on 06/02/16 06:07; Start 05/31/16 at 14:00; Stop 06/02/16 at 09:34 ; Status DC Enoxaparin Sodium (Lovenox Inj) 40 mg Q24H SQ Last administered on 06/03/16 08 :23; Start 06/01/16 at 09:00 Acetaminophen (Tylenol) 500 mg Q6H PRN PO HEADACHE Last administered on 21:24; Start 05/31/16 at 21:00 Insulin Detemir (Levemir Inj) 14 units HS SQ Last administered on 06/03/16 21: 00; Start 06/01/16 at 21:00 Methylprednisolone Sodium Succinate (SoluMEDROL INJ) 20 mg Q12HR IV PUSH Last administered on 06/03/16 21:37; Start 06/02/16 at 21:00 A/P Assessment and Plan A/P - NSTEMI continue aspirin and statin- stress test with no significant ischemia- cardiology will see PRN. -acute on chronic hypoxemic respiratory failure due to COPD exacerbation- improving slowly continue neb treatment and steroid ; will switch to prednisone . along with antibiotics- blood cultures negative so far. now at two liters of oxygen via N/C which is his baseline- has oxygen and nebulizer at home. pulmonary following. -diabetes mellitus; resume his home regimen upon discharge. -hypertension/ dyslipidemia; resumed home meds -DVT prophylaxis; on lovenox Discharge Planning dc home today. see med list. case management for [facility]. d/w the patient. time spent 32 min. Meaghan Rolon MD Jun 04, 2016 08:45
--- NOTE | 2016-06-04 08:50 | HHI.DS ---
Discharge Summary Admission Date May 28, 2016 at 06:16 Discharge Date: Jun 04, 2016 Admitting Diagnosis NSTEMI, Sepsis (PNA), COPD Exacerbation (1) NSTEMI (non-ST elevated myocardial infarction) ICD Code: I21.4 Diagnosis: Principal (2) COPD exacerbation ICD Code: J44.1 Diagnosis: Principal Procedures none Brief History - From Admission patient is a 65 y/o male with history of COPD and CAD presented to ER with sob. he says that sob started five days ago and despite using his nebulizer got worse. he has productive cough of whitish sputum and reports some fever and chills at home. he had some chest discomfort along with sob. he denies any nausea or vomiting.of note he's using home oxygen. Imaging Last Impressions Myocardial Perfusion Scan Nuc Med 05/30/16 0700 Signed Impressions: Service Date/Time: May 10:55 - CONCLUSION: 1. No significant reversibility to suggest ischemia. 2. Wall motion just within normal limits with ejection fraction at 50%%. RISK CATEGORY: Low (<1%% Annual Mortality Rate) Yeyo Winn MD Chest X-Ray 05/28/16 0514 Signed Impressions: Service Date/Time: Saturday, May 28, 2016 05:26 - CONCLUSION: 1. Cardiomegaly. No acute pulmonary disease. Gerardo Jaimes MD PE at Discharge GENERAL: This is a well-nourished, well-developed patient, in no apparent distress. CARDIOVASCULAR: Regular rate and regular rhythm without murmurs, gallops, or rubs. RESPIRATORY: better air entry bilaterally GASTROINTESTINAL: Abdomen soft, non-tender, nondistended. Normal, active bowel sounds MUSCULOSKELETAL: Extremities without clubbing, cyanosis, or edema. NEURO: Alert & Oriented x4 to person, place, time, situation. Moves all ext x4 Hospital Course - NSTEMI continue aspirin and statin- stress test with no significant ischemia- cardiology will see PRN. -acute on chronic hypoxemic respiratory failure due to COPD exacerbation- improving slowly continue neb treatment and steroid ; will switch to prednisone . along with antibiotics- blood cultures negative so far. now at two liters of oxygen via N/C which is his baseline- has oxygen and nebulizer at home. pulmonary following. -diabetes mellitus; resume his home regimen upon discharge. -hypertension/ dyslipidemia; resumed home meds -DVT prophylaxis; on lovenox Pt Condition on Discharge: Fair Discharge Disposition: Disch w/ Home Health Serv Discharge Time: > 30 minutes Discharge Instructions DIET: Follow Instructions for: Heart Healthy Diet, Diabetic Diet Activities you can perform: Regular-No Restrictions Follow up Referrals: PCP Follow-up Pulmonology New Medications: Prednisone (Prednisone) 5 Mg Tab 5 MG PO DIRECTED 40 mg po daily for two days then 30 mg po daily for two days then 20 mg po daily for two days then 10 mg po daily for two days then 5 mg po daily for two days then stop. copd Days 10 Ref 0 TAB Continued Medications: Acetaminophen (Acetaminophen) 325 Mg Tab 325 MG PO DAILY PRN PAIN SCALE 1 TO 5 Ref 0 TAB Aspirin (Aspirin) 81 Mg Chew 81 MG CHEW DAILY Ref 0 TAB Brimonidine Opth Drops (Brimonidine Opth Drops) 0.15% Soln 1 DROP RIGHT EYE BID Intraocular pressure #1 Ref 0 BOTTLE Budesonide-Formoterol Inh (Symbicort Inh) 160-4.5 Mcg/Act Aero 2 PUFF INH Q12HR #1 Ref 0 INHALER Carbidopa-Levodopa (Carbidopa-Levodopa) 25-100 Mg Tab 1 TAB PO HS Parkinson Disease Mgmt #90 Ref 0 TAB Furosemide (Lasix) 40 Mg Tab 40 MG PO BID@09,18 Prevent Heart Failure #60 TAB Gabapentin (Gabapentin) 300 Mg Cap 300 MG PO HS #30 Ref 0 CAP Insulin Human Isophane-Regular 70-30 Inj (Novolin 70-30 Inj) 1,000 Unit/10 Ml Vial 46 UNITS SQ AC BREAKFAST Blood Sugar Management Ref 0 ML Insulin Human Isophane-Regular 70-30 Inj (Novolin 70-30 Inj) 1,000 Unit/10 Ml Vial 54 UNITS SQ AC DINNER Blood Sugar Management Ref 0 ML Ipratropium HFA 12.9 GM Inh (Atrovent HFA 12.9 GM Inh) 17 Mcg/Act Aer 2 PUFF INH QID Breathing Treatment #1 Ref 0 INHALER Latanoprost Opth Drops (Latanoprost Opth Drops) 0.005% Drops 1 DROP RIGHT EYE HS Refrigerate until opened. Glaucoma #2.5 Ref 0 ML Lisinopril (Lisinopril) 2.5 Mg Tab 2.5 MG PO DAILY #30 Ref 0 TAB Lovastatin (Lovastatin) 40 Mg Tab 40 MG PO DAILY Cholesterol Management #30 Ref 0 TAB Magnesium Oxide (Magnesium Oxide) 400 Mg Tab 400 MG PO DAILY Metformin (Metformin) 1,000 Mg Tab 1000 MG PO BIDPC With meals Blood Sugar Management #60 Ref 0 TAB Omeprazole (Omeprazole) 20 Mg Cap 20 MG PO ACHS Potassium Chloride ER (Potassium Chloride ER) 20 Meq Tab 20 MEQ PO DAILY Electrolyte Replacement #30 Ref 0 TAB Tiotropium Inh (Spiriva Handihaler) 18 Mcg Cap 18 MCG INH DAILY 1 capsule = 18 mcg COPD #30 Ref 0 CAP Discontinued Medications: Ibuprofen (Ibuprofen) 800 Mg Tab 800 MG PO BID PRN PAIN SCALE 1 TO 5 Ref 0 TAB Prednisone (Prednisone) 20 Mg Tab 20 MG PO BID Breathing Treatment #10 TAB Meaghan Rolon MD Jun 04, 2016 08:50
[2016-06-04] MEDS: ASPIRIN 81 MG CHEW TAB CHEW SCH (09:40)
[2016-06-04] MEDS: methylPREDNISolone SOD SUCC 40 MG/1 ML VIAL IV PUSH SCH (09:40)
[2016-06-04] MEDS: ENOXAPARIN SODIUM 40 MG/0.4 ML SYRINGE SQ SCH (09:40)
[2016-06-04] MEDS: SODIUM CHLORIDE 0.9% FLUSH 5 ML FLUSH FLUSH SCH (09:41)
[2016-06-04] MEDS: LISINOPRIL 5 MG TAB PO SCH (09:41)
[2016-06-04] MEDS: FUROSEMIDE 40 MG TAB PO SCH (09:41)
[2016-06-04] MEDS: PRAVASTATIN SOD 40 MG TAB PO SCH (09:41)
[2016-06-04] MEDS: AZITHROMYCIN 250 MG TAB PO SCH (09:41)
--- NOTE | 2016-06-12 09:41 | RSPPFT ---
DATE OF PROCEDURE: 05/30/16 COMMENTS: Spirometry with FVC of 1.0, FEV1 of 0.4, FEV1/FVC ratio is 43%. There is a non-significant response to acutely inhaled bronchodilator. IMPRESSION: 1. Very severe airways obstruction. 2. Non-significant response to acutely inhaled bronchodilator.
== END 2016-06-04 11:36 | disposition home health service (06) | DRG 280 ==
LOC: NEPE 04:58 → NEDA 06:16 → NEDH 11:48 → HCIS 05-29 10:50
PROVIDERS: ADMIT Internal Medicine; ATTEND Internal Medicine
PROC: 3E0F7GC Introduction of Other Therapeutic Substance into Respiratory Tract, Via Natural or Artificial Opening (ICD-10-PCS; principal; 2016-05-28)
PROC: 5A09357 Assistance with Respiratory Ventilation, Less than 24 Consecutive Hours, Continuous Positive Airway Pressure (ICD-10-PCS; 2016-05-28)
DX: I21.4 Non-ST elevation (NSTEMI) myocardial infarction (principal); J96.21 Acute and chronic respiratory failure with hypoxia; J44.1 Chronic obstructive pulmonary disease with (acute) exacerbation; Z99.81 Dependence on supplemental oxygen; I25.10 Atherosclerotic heart disease of native coronary artery without angina pectoris; I50.9 Heart failure, unspecified; E11.9 Type 2 diabetes mellitus without complications; I25.2 Old myocardial infarction; G47.33 Obstructive sleep apnea (adult) (pediatric); I10 Essential (primary) hypertension; M19.90 Unspecified osteoarthritis, unspecified site; J45.909 Unspecified asthma, uncomplicated; E78.00 Pure hypercholesterolemia, unspecified; K21.9 Gastro-esophageal reflux disease without esophagitis; F17.210 Nicotine dependence, cigarettes, uncomplicated; Z79.4 Long term (current) use of insulin; E78.5 Hyperlipidemia, unspecified; Z83.3 Family history of diabetes mellitus; Z95.5 Presence of coronary angioplasty implant and graft
CPT/HCPCS: 36600; 71010; 78452; 80048; 80061; 82550; 82552; 82805; 82948; 83605; 83880; 84484; 85025; 87040; 87804; 93005; 93017; 93306; 94002; 94003; 94060; 94640; 94664; 96365; 96372; 96375; A9502; J0696; J1650; J1815; J1956; J2785; J2920; J2930; J7030; J7613

== ENCOUNTER 2017-09-18 16:18 | Observation (INO) | payer MEDICARE, OTHER ==
[~2017-09-18] VITALS: Ht 170.2 cm; Wt 111.4 kg
[~2017-09-18 16:18] MED LIST changes: +ASPI-516 CHEW; -ASPI81CH CHEW; -IBUP800T23 PO; -PRED20 PO; +PRED5TAB PO
[2017-09-18 16:25] VITALS: BP 138/65; PULSE 98; RESP 24; TEMP 98.2; O2SAT 91
--- NOTE | 2017-09-18 17:00 | RADRPT ---
EXAM DATE: 09/18/2017 4:58 PM EDT AGE/SEX: 67 years / Male INDICATIONS: Short of breath, cough, and congestion. CLINICAL DATA: This is the patient's initial encounter. Patient reports that signs and symptoms have been present for 1 week and indicates a pain score of 0/10. MEDICAL/SURGICAL HISTORY: . Myocardial infarction. Hypercholesterolemia. Chronic obstructive p ulmonary disease. GERD. Hypertension Cholecystectomy. Stents. [place] [facility] [place]. . FINDINGS: There is mild diffuse interstitial prominence. No evidence of alveolar consolidation or pleural effus ion. Cardiac contours are stable and satisfactory. CONCLUSION: Mild interstitial prominence Electronically signed by: Catracho Aponte MD 09/18/2017 4:59 PM EDT
[2017-09-18 18:24] LABS: AUTOMATED NEUTROPHIL # 3.8 TH/MM3 (1.8-7.7); BASOPHIL % 0.6 % (0.0-2.0); EOSINOPHIL # 0.1 TH/MM3 (0-0.4); EOSINOPHIL % 1.4 % (0.0-4.0); HEMATOCRIT 44.1 % (39.0-51.0); HEMOGLOBIN 14.1 GM/DL (13.0-17.0); LYMPH % 29.7 % (9.0-44.0); MEAN CELL VOLUME 90.1 FL (80.0-100.0); MEAN CORPUSCULAR HEMOGLOBIN 28.7 PG (27.0-34.0); MEAN CORPUSCULAR HGB CONC 31.9 % (32.0-36.0); MEAN PLATELET VOLUME 8.3 FL (7.0-11.0); MONO % 10.8 % (0.0-8.0); MONOCYTE # 0.7 TH/MM3 (0-0.9); NEUT % 57.5 % (16.0-70.0); PLATELET COUNT 239 TH/MM3 (150-450); RED BLOOD COUNT 4.89 MIL/MM3 (4.50-5.90); WHITE BLOOD COUNT 6.6 TH/MM3 (4.0-11.0)
[2017-09-18 18:43] LABS: BICARBONATE 33.6 MEQ/L (21.0-32.0); BLOOD UREA NITROGEN 15 MG/DL (7-18); CALCIUM 8.4 MG/DL (8.5-10.1); CREATININE 1.32 MG/DL (0.60-1.30); GLOMERULAR FILTRATION RATE 54 ML/MIN (>89); GLUCOSE,RANDOM 368 MG/DL (74-106)
[2017-09-18] MEDS ORDERED: LANTUS2P SQ (18:55)
[2017-09-18] MEDS ORDERED: NOVOLOGP2 SQ (18:55)
[2017-09-18] MEDS ORDERED: FUROSEMIDE 40 MG/4 ML VIAL IV PUSH ONE (19:00)
[2017-09-18] MEDS ORDERED: methylPREDNISolone SOD SUCC 125 MG/2 ML VIAL IV PUSH ONE (19:00)
[2017-09-18 19:06] VITALS: BP 151/71; PULSE 88; RESP 21; O2SAT 95
[2017-09-18 19:08] VITALS: O2SAT 95
[2017-09-18] MEDS: RESP: ALBUTEROL 2.5 MG/IPRATROPIUM 0.5 MG NEB (SCH) INH ×2 (19:16→21:20)
[2017-09-18 19:18] LABS: CHLORIDE 97 MEQ/L (98-107); SODIUM (NA) 135 MEQ/L (136-145); TROPONIN I LESS THAN 0.02 NG/ML (0.02-0.05)
--- NOTE | 2017-09-18 20:28 | PD ---
Physical Exam Date Seen by Provider: Sep 18, 2017 Time Seen by Provider: 20:26 Narrative Patient is a obese male with COPD history he is coming in with worsening shortness of breath over the last few days not responding to his home treatments. Patient's chest x-ray looks like interstitial edema patient's lung exam he is extra Tory wheezing upper farah and crackles rales in the lower farah a mix of CHF with with COPD exacerbation as well he is treated for both in the ER by the PA and he is admitted for further evaluation to the [facility] service Data Data Last Documented VS Vital Signs Date Time Temp Pulse Resp B/P (MAP) Pulse Ox O2 Delivery O2 Flow Rate FiO2 09/18/17 19:08 95 Nasal Cannula 3.00 09/18/17 19:06 88 21 151/71 (97) 09/18/17 16:25 98.2 Orders Orders Electrocardiogram (09/18/17 16:28) Complete Blood Count With Diff (09/18/17 16:28) Basic Metabolic Panel (Bmp) (09/18/17 16:28) Ckmb (Isoenzyme) Profile (09/18/17 16:28) Troponin I (09/18/17 16:28) Chest, Single Ap (09/18/17 16:28) B-Type Natriuretic Peptide (09/18/17 16:28) Methylprednisolone So Succ Inj (Solumedr (09/18/17 19:00) Albuterol-Ipratropium Neb (Duoneb Neb) (09/18/17 19:00) Furosemide Inj (Lasix Inj) (09/18/17 19:00) CKMB (09/18/17 17:11) CKMB% (09/18/17 17:11) Coag Profile (09/18/17 19:39) Azithromycin Inj (Zithromax Inj) (09/18/17 20:30) Labs Laboratory Tests Test 09/18/17 17:11 White Blood Count 6.6 TH/MM3 Red Blood Count 4.89 MIL/MM3 Hemoglobin 14.1 GM/DL Hematocrit 44.1 % Mean Corpuscular Volume 90.1 FL Mean Corpuscular Hemoglobin 28.7 PG Mean Corpuscular Hemoglobin Concent 31.9 % Red Cell Distribution Width 16.0 % Platelet Count 239 TH/MM3 Mean Platelet Volume 8.3 FL Neutrophils (%) (Auto) 57.5 % Lymphocytes (%) (Auto) 29.7 % Monocytes (%) (Auto) 10.8 % Eosinophils (%) (Auto) 1.4 % Basophils (%) (Auto) 0.6 % Neutrophils # (Auto) 3.8 TH/MM3 Lymphocytes # (Auto) 2.0 TH/MM3 Monocytes # (Auto) 0.7 TH/MM3 Eosinophils # (Auto) 0.1 TH/MM3 Basophils # (Auto) 0.0 TH/MM3 CBC Comment DIFF FINAL Differential Comment Blood Urea Nitrogen 15 MG/DL Creatinine 1.32 MG/DL Random Glucose 368 MG/DL Calcium Level 8.4 MG/DL Sodium Level 135 MEQ/L Potassium Level 4.2 MEQ/L Chloride Level 97 MEQ/L Carbon Dioxide Level 33.6 MEQ/L Anion Gap 4 MEQ/L Estimat Glomerular Filtration Rate 54 ML/MIN Total Creatine Kinase 390 U/L Creatine Kinase MB 10.2 NG/ML Creatine Kinase MB % 2.6 % Troponin I LESS THAN 0.02 NG/ML B-Type Natriuretic Peptide 12 PG/ML MDM Supervised Visit with NICHOLAS: Yes Diagnosis Primary Impression: CHF (congestive heart failure) Qualified Codes: I50.9 - Heart failure, unspecified Devante Amaral MD Sep 18, 2017 20:28
--- NOTE | 2017-09-18 20:29 | PD ---
HPI Chief Complaint: Respiratory Symptoms Time Seen by Provider: 18:40 Travel History International Travel<30 days: No Contact w/Intl Traveler<30days: No Traveled to known affect area: No History of Present Illness HPI 67-year-old male that presents to the ED for evaluation of shortness of breath worsening for the past 3-4 days. Per patient he has been dealing with some congestion and shortness of breath but gets worse when he ambulates as well as when he lays down flat. Per patient he has some chest pain on and off since that but he attributes this more to the coughing and congestion. He states that he has a history of COPD as well as CHF. He does take Lasix and states compliance with his medications. Per patient he has been using his inhalers and nebulizers as well as a CPAP with minimal relief. Per patient the symptoms continue and are progressively getting worse. He has been here before for similar. He reports currently he has no pain. He does use oxygen at home and uses 3 L at home. He states that he has been having to use more of it because of the shortness of breath. He states that the shortness of breath and coughing gets much severe when he lays down flat. He denies noting any gaining weight. Has no allergies to medication. No other medical issues. PFSH Past Medical History Arthritis: Yes (GENERALIZED) Asthma: Yes Depression: No Cardiac Catheterization: Yes Cardiovascular Problems: Yes (stent 2011) High Cholesterol: Yes Chest Pain: Yes Congestive Heart Failure: Yes COPD: Yes Diabetes: Yes Patient Takes Glucophage: Yes Diminished Hearing: No Endocrine: Yes Gastrointestinal Disorders: Yes GERD: Yes Genitourinary: No Hypertension: Yes Immune Disorder: No Implanted Vascular Access Dvce: No Musculoskeletal: No Neurologic: No Psychiatric: No Reproductive: No Respiratory: Yes (on oxygen ) Immunizations Current: Yes Myocardial Infarction: Yes (MAY 2012) Sleep Apnea: Yes (WEARS A CPAP AT HOME) Ulcer: Yes Tetanus Vaccination: > 5 Years Influenza Vaccination: Yes Past Surgical History Abdominal Surgery: Yes (cholecystectomy) Cardiac Surgery: No Cholecystectomy: Yes Coronary Stent: Yes (1) Ear Surgery: No Endocrine Surgery: No Eye Surgery: No Genitourinary Surgery: No Gynecologic Surgery: No Neurologic Surgery: No Oral Surgery: No Thoracic Surgery: No Other Surgery: Yes (gallbladder) Social History Alcohol Use: No Tobacco Use: Yes (1-2 PPD) Substance Use: No Allergies-Medications (Allergen,Severity, Reaction): Coded Allergies: No Known Allergies (Verified Adverse Reaction, Unknown, 09/18/17) Reported Meds & Prescriptions Reported Meds & Active Scripts Active Prednisone 5 Mg Tab 5 Mg PO DIRECTED 10 Days 40 mg po daily for two days then 30 mg po daily for two days then 20 mg po daily for two days then 10 mg po daily for two days then 5 mg po daily for two days then stop. Atrovent HFA 12.9 GM Inh (Ipratropium [place]) 17 Mcg/Act Aer 2 Puff INH QID Symbicort Inh (Budesonide/Formoterol Fumarate) 160-4.5 Mcg/Act Aero 2 Puff INH Q12HR Spiriva Handihaler (Tiotropium Inh) 18 Mcg Cap 18 Mcg INH DAILY 1 capsule = 18 mcg Potassium Chloride ER (Potassium Chloride) 20 Meq Tab 20 Meq PO DAILY Lasix (Furosemide) 40 Mg Tab 40 Mg PO BID@ Reported Novolog Inj (Insulin Aspart) 1,000 Unit/10 Ml Vial 27 Units SQ BID Lantus Inj (Insulin Glargine) 1,000 Unit/10 Ml Vial 60 Units SQ BID Omeprazole 20 Mg Cap 20 Mg PO DAILY Metformin (Metformin HCl) 1,000 Mg Tab 1,000 Mg PO BIDPC With meals Lovastatin 40 Mg Tab 40 Mg PO DAILY Lisinopril 2.5 Mg Tab 2.5 Mg PO DAILY Latanoprost Opth Drops (Latanoprost) 0.005% Drops 1 Drop RIGHT EYE HS Refrigerate until opened. Gabapentin 300 Mg Cap 300 Mg PO HS Carbidopa-Levodopa 25-100 Mg Tab 1 Tab PO HS Brimonidine Opth Drops (Brimonidine Tartrate) 0.15% Soln 1 Drop RIGHT EYE BID Aspirin 81 Mg Chew 81 Mg CHEW DAILY Review of Systems Except as stated in HPI: all other systems reviewed are Neg Physical Exam Narrative GENERAL: SKIN: Warm and dry. HEAD: Atraumatic. Normocephalic. EYES: Pupils equal and round. No scleral icterus. No injection or drainage. ENT: No nasal bleeding or discharge. Mucous membranes pink and moist. Tongue is midline. No uvula deviation. NECK: Trachea midline. No JVD. CARDIOVASCULAR: Regular rate and rhythm. No obvious murmurs noted. RESPIRATORY: No accessory muscle use. Wheezing and rales heard in all lung farah especially in the lower lungs. Breath sounds equal bilaterally. GASTROINTESTINAL: Abdomen soft, non-tender, nondistended. Hepatic and splenic margins not palpable. MUSCULOSKELETAL: Extremities without clubbing, cyanosis, or edema. No obvious deformities. Full range of motion of the upper and lower extremities bilaterally. 1+ pitting edema lower extremities bilaterally noted. NEUROLOGICAL: Awake and alert. No obvious cranial nerve deficits. Motor grossly within normal limits. Five out of 5 muscle strength in the arms and legs. Normal speech. PSYCHIATRIC: Appropriate mood and affect; insight and judgment normal. Data Data Last Documented VS Vital Signs Date Time Temp Pulse Resp B/P (MAP) Pulse Ox O2 Delivery O2 Flow Rate FiO2 09/18/17 19:08 95 Nasal Cannula 3.00 09/18/17 19:06 88 21 151/71 (97) 09/18/17 16:25 98.2 Orders Orders Electrocardiogram (09/18/17 16:28) Complete Blood Count With Diff (09/18/17 16:28) Basic Metabolic Panel (Bmp) (09/18/17 16:28) Ckmb (Isoenzyme) Profile (09/18/17 16:28) Troponin I (09/18/17 16:28) Chest, Single Ap (09/18/17 16:28) B-Type Natriuretic Peptide (09/18/17 16:28) Methylprednisolone So Succ Inj (Solumedr (09/18/17 19:00) Albuterol-Ipratropium Neb (Duoneb Neb) (09/18/17 19:00) Furosemide Inj (Lasix Inj) (09/18/17 19:00) CKMB (09/18/17 17:11) CKMB% (09/18/17 17:11) Coag Profile (09/18/17 19:39) Azithromycin Inj (Zithromax Inj) (09/18/17 20:30) Albuterol-Ipratropium Neb (Duoneb Neb) (09/18/17 20:45) Admit Order (Ed Use Only) (09/18/17 21:07) Labs Laboratory Tests Test 09/18/17 17:11 09/18/17 20:20 White Blood Count 6.6 TH/MM3 Red Blood Count 4.89 MIL/MM3 Hemoglobin 14.1 GM/DL Hematocrit 44.1 % Mean Corpuscular Volume 90.1 FL Mean Corpuscular Hemoglobin 28.7 PG Mean Corpuscular Hemoglobin Concent 31.9 % Red Cell Distribution Width 16.0 % Platelet Count 239 TH/MM3 Mean Platelet Volume 8.3 FL Neutrophils (%) (Auto) 57.5 % Lymphocytes (%) (Auto) 29.7 % Monocytes (%) (Auto) 10.8 % Eosinophils (%) (Auto) 1.4 % Basophils (%) (Auto) 0.6 % Neutrophils # (Auto) 3.8 TH/MM3 Lymphocytes # (Auto) 2.0 TH/MM3 Monocytes # (Auto) 0.7 TH/MM3 Eosinophils # (Auto) 0.1 TH/MM3 Basophils # (Auto) 0.0 TH/MM3 CBC Comment DIFF FINAL Differential Comment Blood Urea Nitrogen 15 MG/DL Creatinine 1.32 MG/DL Random Glucose 368 MG/DL Calcium Level 8.4 MG/DL Sodium Level 135 MEQ/L Potassium Level 4.2 MEQ/L Chloride Level 97 MEQ/L Carbon Dioxide Level 33.6 MEQ/L Anion Gap 4 MEQ/L Estimat Glomerular Filtration Rate 54 ML/MIN Total Creatine Kinase 390 U/L Creatine Kinase MB 10.2 NG/ML Creatine Kinase MB % 2.6 % Troponin I LESS THAN 0.02 NG/ML B-Type Natriuretic Peptide 12 PG/ML MDM Medical Decision Making Medical Screen Exam Complete: Yes Emergency Medical Condition: Yes Medical Record Reviewed: Yes Interpretation(s) CBC & BMP Diagram 09/18/17 17:11 Calcium Level 8.4 L Last Impressions Chest X-Ray 09/18/17 1628 Signed Impressions: CONCLUSION: Mild interstitial prominence troponin and CKMB negative BNP WNL Differential Diagnosis COPD exacerbation versus CHF exacerbation versus chest pain versus typical chest pain versus respiratory distress Narrative Course 67-year-old male the presents to the ED for evaluation of shortness of breath with exertion. Patient was properly examined and was found to have signs and symptoms of unclear etiology but definite concerning for COPD versus CHF. Labs and imaging order. Labs and imaging did show what appears to be some fluid in the lungs. Patient still very wheezy on exam with rales. He was given more breathing treatments as well as Solu-Medrol and azithromycin. My attending Dr. Amaral evaluated the patient and recommends admission for opts for COPD/CHF exacerbation. Patient was given Lasix as well. Case discussed with Dr Santillan who agreed to obs admit. Diagnosis Primary Impression: COPD exacerbation Additional Impression: CHF (congestive heart failure) Qualified Codes: I50.9 - Heart failure, unspecified Admitting Information Admitting Physician Requests: Travis Salcido Sep 18, 2017 20:29
[2017-09-18] MEDS ORDERED: AZITHROMYCIN INJ 500 MG in SODIUM CHLOR 0.9% 250 ML INJ 250 ML IV ONE (20:30)
[2017-09-18 21:32] VITALS: BP 129/68; PULSE 92; RESP 20; TEMP 98.4; O2SAT 96
[2017-09-18 21:38] LABS: INTERNATIONAL NORMALIZED RATIO 1.1 RATIO; PROTHROMBIN TIME - PATIENT 11.3 SEC (9.8-11.6)
[2017-09-18] MEDS ORDERED: NALOXONE HCL 0.4 MG/ML AMP IV PUSH PRN (23:30)
[2017-09-18] MEDS ORDERED: SODIUM CHLORIDE 0.9% FLUSH 10 ML FLUSH IV FLUSH PRN (23:30)
[2017-09-18] MEDS ORDERED: ACETAMINOPHEN 325 MG TAB PO PRN (23:30)
[2017-09-18] MEDS ORDERED: RESP: ALBUTEROL 2.5 MG/3 ML NEB (PRN) INH (23:30)
[2017-09-18] MEDS ORDERED: DEXTROSE 50% IN WATER 50 ML VIAL(D50) IV PUSH PRN (23:45)
[2017-09-18] MEDS ORDERED: GLUCAGON 1 MG/ML VIAL OTHER PRN (23:45)
[2017-09-19] VITALS (11 sets, daily range): BP systolic 117–142; BP diastolic 56–75; PULSE 70–106; RESP 16–20; TEMP 97.6–98.4; O2SAT 93–100
--- NOTE | 2017-09-19 00:08 | HHI.HP ---
[facility] Physician [facility] Admission Diagnosis acute COPD exacerbation, CHF Diagnoses: Travel History International Travel<30 Days: No Contact w/Intl Traveler <30 Da: No Traveled to Known Affected Are: No History of Present Illness 67-year-old male with a past medical history significant for CLARI, COPD, neuropathy, diabetes mellitus, peptic ulcer disease, coronary artery disease, restless leg syndrome, CHF (EF of 55-60%) and hyperlipidemia presents the emergency department for evaluation of chest tightness with accompanying shortness of breath. The patient reports his shortness of breath started Friday and acutely worsened on Friday. He is on home oxygen 2-3 L continuously. The patient reports his shortness of breath has gotten so bad that he becomes dyspneic with exertion and with talking. He denies any chest pain/pressure. No cough. No abdominal pain. No nausea/vomiting/diarrhea. No lateralizing signs/symptoms. No fevers/chills. Review of Systems Except as stated in HPI: all other systems reviewed are Neg Past Family Social History Past Medical History CLARI, COPD, neuropathy, diabetes mellitus, peptic ulcer disease, coronary artery disease, restless leg syndrome, CHF (EF of 55-60%) and hyperlipidemia Past Surgical History Cardiac catheterization with stent placement 1 Cholecystectomy Allergies: Coded Allergies: No Known Allergies (Verified Allergy, Unknown, 09/18/17) Physical Exam Vital Signs Vital Signs Date Time Temp Pulse Resp B/P (MAP) Pulse Ox O2 Delivery O2 Flow Rate FiO2 09/18/17 21:32 98.4 92 20 129/68 (88) 96 Nasal Cannula 2.00 09/18/17 19:08 95 Nasal Cannula 3.00 09/18/17 19:06 88 21 151/71 (97) 95 Nasal Cannula 2.00 09/18/17 18:45 89 22 96 Nasal Cannula 3.00 09/18/17 16:25 98.2 98 24 138/65 (89) 91 Physical Exam GENERAL: Obese, male sitting up in bed SKIN: No rashes, ecchymoses or lesions. Cool and dry. HEAD: Atraumatic. Normocephalic. No temporal or scalp tenderness. EYES: Pupils equal round and reactive. Extraocular motions intact. No scleral icterus. No injection or drainage. ENT: Nose without bleeding, purulent drainage or septal hematoma. Throat without erythema, tonsillar hypertrophy or exudate. Uvula midline. Airway patent. NECK: Trachea midline. No JVD or lymphadenopathy. Supple, nontender, no meningeal signs. CARDIOVASCULAR: Regular rate and rhythm without murmurs, gallops, or rubs. RESPIRATORY: Poor air movement. No wheezes/rales/rhonchi. Use of accessory muscles. Tachypnea. GASTROINTESTINAL: Abdomen soft, non-tender, nondistended. No hepato-splenomegaly , or palpable masses. No guarding. MUSCULOSKELETAL: Extremities without clubbing, cyanosis, or edema. No joint tenderness, effusion, or edema noted. No calf tenderness. NEUROLOGICAL: Awake and alert. Cranial nerves II through XII intact. Motor and sensory grossly within normal limits. Normal speech. Laboratory Laboratory Tests Test 09/18/17 17:11 09/18/17 20:20 White Blood Count 6.6 Red Blood Count 4.89 Hemoglobin 14.1 Hematocrit 44.1 Mean Corpuscular Volume 90.1 Mean Corpuscular Hemoglobin 28.7 Mean Corpuscular Hemoglobin Concent 31.9 Red Cell Distribution Width 16.0 Platelet Count 239 Mean Platelet Volume 8.3 Neutrophils (%) (Auto) 57.5 Lymphocytes (%) (Auto) 29.7 Monocytes (%) (Auto) 10.8 Eosinophils (%) (Auto) 1.4 Basophils (%) (Auto) 0.6 Neutrophils # (Auto) 3.8 Lymphocytes # (Auto) 2.0 Monocytes # (Auto) 0.7 Eosinophils # (Auto) 0.1 Basophils # (Auto) 0.0 CBC Comment DIFF FINAL Differential Comment Blood Urea Nitrogen 15 Creatinine 1.32 Random Glucose 368 Calcium Level 8.4 Sodium Level 135 Potassium Level 4.2 Chloride Level 97 Carbon Dioxide Level 33.6 Anion Gap 4 Estimat Glomerular Filtration Rate 54 Total Creatine Kinase 390 Creatine Kinase MB 10.2 Creatine Kinase MB % 2.6 Troponin I LESS THAN 0.02 B-Type Natriuretic Peptide 12 Prothrombin Time 11.3 Prothromb Time International Ratio 1.1 Activated Partial Thromboplast Time 24.8 Result Diagram: 09/18/17 1711 09/18/17 1711 Caprini VTE Risk Assessment Caprini VTE Risk Assessment: Mod/High Risk (score >= 2) Caprini Risk Assessment Model Point Value = 1 Point Value = 2 Point Value = 3 Point Value = 5 Age 41-60 Minor surgery BMI > 25 kg/m2 Swollen legs Varicose veins or History of unexplained or recurrent spontaneous Oral contraceptives or hormone replacement Sepsis (< 1 month) Serious lung disease, including pneumonia (< 1 month) Abnormal pulmonary function Acute myocardial infarction Congestive heart failure (< 1 month) History of inflammatory bowel disease Medical patient at bed rest Age 61-74 Arthroscopic surgery Major open surgery (> 45 min) Laparoscopic surgery (> 45 min) Malignancy Confined to bed (> 72 hours) Immobilizing plaster cast Central venous access Age >= 75 History of VTE Family history of VTE Factor V Leiden Prothrombin [id number] Lupus anticoagulant Anticardiolipin antibodies Elevated serum homocysteine Heparin-induced thrombocytopenia Other congenital or acquired thrombophilia Stroke (< 1 month) Elective arthroplasty Hip, pelvis, or leg fracture Acute spinal cord injury (< 1 month) Prophylaxis Regimen Total Risk Factor Score Risk Level Prophylaxis Regimen 0-1 Low Early ambulation 2 Moderate Order ONE of the following: *Sequential Compression Device (SCD) *Heparin 5000 units SQ BID 3-4 Higher Order ONE of the following medications: *Heparin 5000 units SQ TID *Enoxaparin/Lovenox 40 mg SQ daily (WT < 150 kg, CrCl > 30 mL/min) *Enoxaparin/Lovenox 30 mg SQ daily (WT < 150 kg, CrCl > 10-29 mL/min) *Enoxaparin/Lovenox 30 mg SQ BID (WT < 150 kg, CrCl > 30 mL/min) AND/OR *Sequential Compression Device (SCD) 5 or more Highest Order ONE of the following medications: *Heparin 5000 units SQ TID (Preferred with Epidurals) *Enoxaparin/Lovenox 40 mg SQ daily (WT < 150 kg, CrCl > 30 mL/min) *Enoxaparin/Lovenox 30 mg SQ daily (WT < 150 kg, CrCl > 10-29 mL/min) *Enoxaparin/Lovenox 30 mg SQ BID (WT < 150 kg, CrCl > 30 mL/min) AND *Sequential Compression Device (SCD) Assessment and Plan Assessment and Plan Assessment/plan: 1. COPD exacerbation Chest X ray negative for acute process, personally reviewed IV steroids Duo nebs Supplemental oxygen as needed (patient on 2-3 L continuously at home) Status post azithromycin 1 in the ED, no indication for antibiotics at this time as patient lacks productive cough or increased sputum production with negative chest x-ray. 2. Diabetes mellitus Continue home insulin - NovoLog and Lantus Monitor blood glucose 3. Coronary artery disease/CHF Last echo showed an EF of 55-60% Continue home medications 4. CLARI CPAP 5. PUD/RLS/hyperlipidemia Continue home medications 6. AK I Creatinine 1.32, baseline 0.9 Monitor renal function Holding IV fluids given CHF FEN Heart healthy diet Electrolytes: Monitor and replete as needed Heparin Lucrecia Santillan MD Sep 19, 2017 00:08
[2017-09-19] MEDS: HEPARIN SODIUM - SQ 10,000 UNITS/ML VIAL SQ SCH ×4 (02:34→23:54)
[2017-09-19] MEDS: methylPREDNISolone SOD SUCC 40 MG/1 ML VIAL IV PUSH SCH ×5 (02:34→23:54)
[2017-09-19] MEDS ORDERED: INSULIN ASPART 1,000 UNITS/10 ML VIAL SQ ONE (03:00)
[2017-09-19] MEDS: RESP: ALBUTEROL 2.5 MG/IPRATROPIUM 0.5 MG NEB (SCH) INH ×4 (03:01→20:03)
[2017-09-19 07:35] LABS: AUTOMATED NEUTROPHIL # 4.6 TH/MM3 (1.8-7.7); BASOPHIL % 0.6 % (0.0-2.0); HEMATOCRIT 44.4 % (39.0-51.0); HEMOGLOBIN 14.3 GM/DL (13.0-17.0); LYMPHOCYTE # 0.8 TH/MM3 (1.0-4.8); MEAN CELL VOLUME 89.2 FL (80.0-100.0); MEAN CORPUSCULAR HEMOGLOBIN 28.8 PG (27.0-34.0); MEAN CORPUSCULAR HGB CONC 32.2 % (32.0-36.0); MEAN PLATELET VOLUME 8.1 FL (7.0-11.0); MONO % 1.3 % (0.0-8.0); MONOCYTE # 0.1 TH/MM3 (0-0.9); NEUT % 83.1 % (16.0-70.0); PLATELET COUNT 246 TH/MM3 (150-450); RED BLOOD COUNT 4.98 MIL/MM3 (4.50-5.90); RED CELL DISTRIBUTION WIDTH 15.9 % (11.6-17.2); WHITE BLOOD COUNT 5.5 TH/MM3 (4.0-11.0)
[2017-09-19 07:54] LABS: BICARBONATE 31.9 MEQ/L (21.0-32.0); CALCIUM 8.9 MG/DL (8.5-10.1); CREATININE 1.07 MG/DL (0.60-1.30)
[2017-09-19] MEDS ORDERED: INSULIN DETEMIR 100 UNITS/ML VIAL SQ SCH ×2 (09:00→21:00)
[2017-09-19] MEDS: PRAVASTATIN SOD 40 MG TAB PO SCH (10:34)
[2017-09-19] MEDS: FUROSEMIDE 40 MG TAB PO SCH ×2 (10:34→19:11)
[2017-09-19] MEDS: ASPIRIN 81 MG CHEW TAB CHEW SCH (10:34)
[2017-09-19] MEDS: POTASSIUM CHLORIDE 20 MEQ CONTROLLED RELEASE TAB PO SCH (10:34)
[2017-09-19] MEDS: LISINOPRIL 5 MG TAB PO SCH (10:35)
[2017-09-19] MEDS: metFORMIN HCL 500 MG TAB PO SCH (10:37)
[2017-09-19] MEDS: SODIUM CHLORIDE 0.9% FLUSH 10 ML FLUSH IV FLUSH SCH ×2 (10:38→22:43)
[2017-09-19] MEDS: INSULIN ASPART 1,000 UNITS/10 ML VIAL SQ SCH ×2 (10:39→22:44)
[2017-09-19] MEDS: BRIMONIDINE TARTRATE 0.15% OPHT SOLN 5 ML BTL RIGHT EYE SCH ×2 (11:59→22:40)
[2017-09-19] MEDS: BUDESONIDE-FORMOTEROL 160/4.5 MCG INHALER INH SCH ×2 (11:59→22:40)
[2017-09-19] MEDS ORDERED: INSULIN ASPART SUPPLEMENTAL SCALE SQ SCH (12:00)
--- NOTE | 2017-09-19 14:46 | HHI.PR ---
Subjective Remarks Follow-up on patient with COPD exacerbation. Patient seen and examined. Patient states that he has not been feeling well since Friday with increasing shortness of breath and cough with clear to yellowish sputum production. Patient continues to smoke. He was last hospitalized 2 years ago for COPD exacerbation. Denies any change in his medications. He follows with a senior regulatory affairs specialist at the [facility]. He denies any fever chills at home. Denies any nausea , vomiting or abdominal pain. He denies any urinary complaints, diarrhea or constipation. He states his breathing has improved some since his admission. He uses oxygen at home 24/7 3L with exertion and 2L at rest. He reports a history of coronary artery disease and has had a stent placed in the past. He denies any known history of congestive heart failure. Objective Vitals Vital Signs Date Time Temp Pulse Resp B/P (MAP) Pulse Ox O2 Delivery O2 Flow Rate FiO2 09/19/17 12:20 98.2 106 20 126/62 (83) 98 09/19/17 08:41 98.2 70 20 124/60 (81) 98 09/19/17 08:20 96 Nasal Cannula 3.00 09/19/17 04:36 90 16 120/57 (78) 96 09/19/17 01:40 97.6 90 18 135/75 (95) 98 09/19/17 00:30 100 40 09/18/17 21:32 98.4 92 20 129/68 (88) 96 Nasal Cannula 2.00 09/18/17 19:08 95 Nasal Cannula 3.00 09/18/17 19:06 88 21 151/71 (97) 95 Nasal Cannula 2.00 09/18/17 18:45 89 22 96 Nasal Cannula 3.00 09/18/17 16:25 98.2 98 24 138/65 (89) 91 I/O 09/18/17 09/18/17 09/18/17 09/19/17 09/19/17 09/19/17 06:59 14:59 22:59 06:59 14:59 22:59 Output Total 2100 ml Balance -2100 ml Output Urine Total 2100 ml # Voids 1 Result Diagram: 09/19/17 0705 09/19/17 0705 Imaging Last Impressions Chest X-Ray 09/18/17 1628 Signed Impressions: CONCLUSION: Mild interstitial prominence Objective Remarks GENERAL: WDWN obese male patient, INAD. Sitting up in bed. Appears comfortable at present. SKIN: No rashes, ecchymoses or lesions. Cool and dry. HEAD: Atraumatic. Normocephalic. EYES: Pupils equal round and reactive. Extraocular motions intact. No scleral icterus. No injection or drainage. ENT: Nose without bleeding or purulent drainage. Airway patent. MMM. NECK: Trachea midline. CARDIOVASCULAR: Regular rate and rhythm without murmurs, gallops, or rubs. RESPIRATORY: No use of accessory muscles. Poor air entry with diffuse expiratory wheezing noted. GASTROINTESTINAL: Abdomen soft, non-tender, nondistended. No guarding. MUSCULOSKELETAL: Extremities without clubbing or cyanosis. Trace to 1+ edema BLE. No calf tenderness. NEUROLOGICAL: Awake and alert. Cranial nerves II through XII grossly intact. Motor and sensory grossly within normal limits. Nonfocal. Normal speech. PSYCHIATRIC: Appropriate mood and affect. Normal judgment and insight. Procedures None A/P Assessment and Plan 67-year-old male with a past medical history significant for CLARI, COPD, neuropathy, diabetes mellitus, peptic ulcer disease, coronary artery disease, restless leg syndrome, CHF (EF of 55-60%) and hyperlipidemia presents the emergency department for evaluation of chest tightness with accompanying shortness of breath. Acute on chronic respiratory failure Oxygen dependent on 2-3L at home CLARI, on CPAP COPD, acute exacerbation Ongoing tobaccoism -Continue on IV steroids and scheduled duo nebs -Continue on Symbicort -Continue on supplemental oxygen to maintain O2 sat greater than 92% -Continue to monitor respiratory status -Discussed importance of smoking cessation, counseling offered. Offered nicotine patch but patient declined. -COPD educator consult CAD s/p cardiac stent implant 2012 Initial trop 0.02, CK 390, CKMB 10.2 patient has no complaints of chest pain -Continue to trend cardiac enzymes and EKGs -Continue aspirin 81 mg daily -Continue to monitor Denies CHF but on Lasix Last echo 2017 shows EF 50-55% CXR showed interstitial prominence, probable CHF exacerbation BNP 12 -Patient given one-time dose of IV Lasix in the ED. Continue on home dose of Lasix 40 mg twice daily and KCL 20meq daily. Monitor electrolytes. -Obtain 2D echocardiogram -CHF teaching -sodium restricted diet Hypertension, controlled Hyperlipidemia -Continue on home dose of lisinopril and Lasix -Continue on home dose of Pravachol 40 mg daily -Continue to monitor BP and adjust treatment accordingly CAESAR, creatinine 1.32 creatinine baseline appears to be around 0.8 to 0.9 improving, now 1.07 -hold Metformin -Avoid IV fluids secondary to CHF -Avoid nephrotoxic agents -Continue to monitor kidney function DM Blood sugars uncontrolled while on IV steroids -Patient resumed on home dose of Levemir 60 units twice daily and NovoLog 27 units twice daily. Increase Levemir to 65 units twice daily. Change to medium dose insulin sliding scale. Change to diabetic diet. -Hold Metformin 1000mg BID -Obtain hemoglobin A1c level -Continue on Accu-Cheks Diabetic neuropathy -Continue on home dose of gabapentin RLS -Continue on Sinemet DVT prophylaxis -Heparin subcu Discharge Planning Patient not ready for discharge. Discharge pending clinical improvement and 2D echo results. Nakia Bruce Sep 19, 2017 14:46
[2017-09-19 15:47] LABS: HEMOGLOBIN A1C 9.2 % (4.3-6.0)
--- NOTE | 2017-09-19 16:07 | EKG ---
Date Performed: 09/18/2017 Time Performed: 16:58:32 PTAGE: 67 years EKG: Sinus rhythm NORMAL ECG Since the PREVIOUS TRACING , no significant change noted PREVIOUS TRACIN05/28/2016 17.23 DOCTOR: Remedios Rosen Interpretating Date/Time 09/19/2017 16:02:02
[2017-09-19 16:13] LABS: TROPONIN I LESS THAN 0.02 NG/ML (0.02-0.05)
[2017-09-19] MEDS: INSULIN ASPART SUPPLEMENTAL SCALE SQ SCH ×2 (19:23→22:44)
[2017-09-19] MEDS: LATANOPROST 0.005% OPHT SOLN 2.5 ML BTL RIGHT EYE SCH (21:00)
[2017-09-19 21:22] LABS: TROPONIN I LESS THAN 0.02 NG/ML (0.02-0.05)
[2017-09-19] MEDS: CARBIDOPA/LEVODOPA 25 MG/100 MG TAB PO SCH (22:42)
[2017-09-19] MEDS: GABAPENTIN 300 MG CAP PO SCH (22:42)
[2017-09-20] VITALS (11 sets, daily range): BP systolic 102–127; BP diastolic 55–66; PULSE 78–101; RESP 18–20; TEMP 96.5–98.5; O2SAT 91–100
[2017-09-20] MEDS: RESP: ALBUTEROL 2.5 MG/IPRATROPIUM 0.5 MG NEB (SCH) INH ×4 (03:02→19:19)
[2017-09-20 03:05] LABS: TROPONIN I LESS THAN 0.02 NG/ML (0.02-0.05)
[2017-09-20] MEDS: methylPREDNISolone SOD SUCC 40 MG/1 ML VIAL IV PUSH SCH (06:11)
--- NOTE | 2017-09-20 08:54 | HHI.PR ---
Subjective Remarks Follow patient with COPD exacerbation. Patient seen and examined. Patient states his breathing is much improved today. He feels that he is back to his baseline. He reports his cough is improved. Denies any fever or chills. He denies any nausea, vomiting or abdominal pain. Objective Vitals Vital Signs Date Time Temp Pulse Resp B/P (MAP) Pulse Ox O2 Delivery O2 Flow Rate FiO2 09/20/17 07:29 78 09/20/17 03:02 100 40 09/20/17 02:39 97.7 85 18 127/59 (81) 95 09/20/17 00:08 101 09/19/17 23:12 98.2 96 18 117/56 (76) 96 09/19/17 23:02 97 40 09/19/17 20:04 97 Nasal Cannula 3.00 09/19/17 19:38 98.4 103 18 142/68 (92) 93 09/19/17 16:30 97.9 86 20 128/60 (82) 98 09/19/17 12:20 98.2 106 20 126/62 (83) 98 I/O 09/19/17 09/19/17 09/19/17 09/20/17 09/20/17 09/20/17 07:00 15:00 23:00 07:00 15:00 23:00 Output Total 2100 ml Balance -2100 ml Output Urine Total 2100 ml # Voids 1 Result Diagram: 09/19/17 0705 09/19/17 0705 Imaging Last Impressions Chest X-Ray 09/18/17 1628 Signed Impressions: CONCLUSION: Mild interstitial prominence Objective Remarks GENERAL: WDWN obese male patient, INAD. Sitting up on side of bed. Appears comfortable. SKIN: No rashes, ecchymoses or lesions. Cool and dry. HEAD: Atraumatic. Normocephalic. EYES: Pupils equal round and reactive. Extraocular motions intact. No scleral icterus. No injection or drainage. ENT: Nose without bleeding or purulent drainage. Airway patent. MMM. NECK: Trachea midline. CARDIOVASCULAR: Regular rate and rhythm without murmurs, gallops, or rubs. RESPIRATORY: No use of accessory muscles. Fair air entry. No wheezing noted. GASTROINTESTINAL: Abdomen soft, non-tender, nondistended. No guarding. MUSCULOSKELETAL: Extremities without clubbing or cyanosis. No BLE edema. No calf tenderness. NEUROLOGICAL: Awake and alert. Cranial nerves II through XII grossly intact. Motor and sensory grossly within normal limits. Nonfocal. Normal speech. PSYCHIATRIC: Appropriate mood and affect. Normal judgment and insight. Procedures None A/P Assessment and Plan 67-year-old male with a past medical history significant for CLARI, COPD, neuropathy, diabetes mellitus, peptic ulcer disease, coronary artery disease, restless leg syndrome, CHF (EF of 55-60%) and hyperlipidemia presents the emergency department for evaluation of chest tightness with accompanying shortness of breath. Acute on chronic respiratory failure Oxygen dependent on 2-3L at home CLARI, on CPAP COPD, acute exacerbation, much improved Ongoing tobaccoism -Continue on scheduled duo nebs -Begin tapered to oral steroids -Continue on Symbicort and Spiriva per home regimen -Continue on supplemental oxygen to maintain O2 sat greater than 92% -Continue to monitor respiratory status -Discussed importance of smoking cessation, counseling offered. Offered nicotine patch but patient declined. -COPD educator consult -PT eval/tx CAD s/p cardiac stent implant 2012 Initial trop 0.02, CK 390, CKMB 10.2 patient has no complaints of chest pain -Continue to trend cardiac enzymes and EKGs -Continue aspirin 81 mg daily -Continue to monitor Denies CHF but on Lasix Last echo 2017 shows EF 50-55% CXR showed interstitial prominence, probable CHF exacerbation BNP 12 -Patient given one-time dose of IV Lasix in the ED. Continue on home dose of Lasix 40 mg twice daily and KCL 20meq daily. Monitor electrolytes. -Obtain 2D echocardiogram -CHF teaching -sodium restricted diet Hypertension, controlled Hyperlipidemia -Continue on home dose of lisinopril and Lasix -Continue on home dose of Pravachol 40 mg daily -Continue to monitor BP and adjust treatment accordingly CAESAR, creatinine 1.32 creatinine baseline appears to be around 0.8 to 0.9 improved, now 1.07 -Avoid IV fluids secondary to CHF -Avoid nephrotoxic agents -Continue to monitor kidney function as indicated DM Blood sugars uncontrolled while on IV steroids, BS 282 this am A1c 9.2 -Patient resumed on home dose of Levemir 60 units twice daily and NovoLog 27 units twice daily. Increase Levemir to 70 units twice daily. Change to low dose insulin sliding scale. Change to diabetic diet. -resume Metformin 1000mg BID -Continue on Accu-Cheks and ISS Diabetic neuropathy -Continue on home dose of gabapentin RLS -Continue on Sinemet DVT prophylaxis -Heparin subcu Discharge Planning Patient not ready for discharge. Discharge pending PT eval/recs and 2D echo results. Nakia Bruce Sep 20, 2017 08:54
[2017-09-20] MEDS: HEPARIN SODIUM - SQ 10,000 UNITS/ML VIAL SQ SCH ×3 (09:31→22:05)
[2017-09-20] MEDS: INSULIN ASPART SUPPLEMENTAL SCALE SQ SCH ×4 (09:31→22:20)
[2017-09-20] MEDS: SODIUM CHLORIDE 0.9% FLUSH 10 ML FLUSH IV FLUSH SCH ×2 (09:32→21:00)
[2017-09-20] MEDS: BUDESONIDE-FORMOTEROL 160/4.5 MCG INHALER INH SCH ×2 (09:32→22:05)
[2017-09-20] MEDS: ASPIRIN 81 MG CHEW TAB CHEW SCH (09:32)
[2017-09-20] MEDS: FUROSEMIDE 40 MG TAB PO SCH ×2 (09:33→18:13)
[2017-09-20] MEDS: PRAVASTATIN SOD 40 MG TAB PO SCH (09:33)
[2017-09-20] MEDS: LISINOPRIL 5 MG TAB PO SCH (09:33)
[2017-09-20] MEDS: metFORMIN HCL 500 MG TAB PO SCH ×2 (09:33→18:13)
[2017-09-20] MEDS: PANTOPRAZOLE SOD 20 MG DELAYED RELEASE TAB PO SCH (09:33)
[2017-09-20] MEDS: POTASSIUM CHLORIDE 20 MEQ CONTROLLED RELEASE TAB PO SCH (09:33)
[2017-09-20] MEDS: LATANOPROST 0.005% OPHT SOLN 2.5 ML BTL RIGHT EYE SCH ×2 (09:34→22:05)
[2017-09-20] MEDS: INSULIN DETEMIR 100 UNITS/ML VIAL SQ SCH ×2 (09:34→22:19)
[2017-09-20] MEDS: BRIMONIDINE TARTRATE 0.15% OPHT SOLN 5 ML BTL RIGHT EYE SCH ×2 (09:34→22:05)
[2017-09-20] MEDS: INSULIN ASPART 1,000 UNITS/10 ML VIAL SQ SCH ×2 (09:35→22:19)
[2017-09-20] MEDS: TIOTROPIUM BROMIDE 18 MCG INH INH SCH (10:56)
--- NOTE | 2017-09-20 14:55 | EKG ---
Date Performed: 09/20/2017 Time Performed: 02:36:02 PTAGE: 67 years EKG: Sinus rhythm NORMAL ECG PREVIOUS TRACING : 09/19/2017 21.27 Since the previous tracing, no significant change noted DOCTOR: Joseluis Field Interpretating Date/Time 09/20/2017 14:52:59
--- NOTE | 2017-09-20 14:57 | EKG ---
Date Performed: 09/19/2017 Time Performed: 21:27:31 PTAGE: 67 years EKG: SINUS TACHYCARDIA NONSPECIFIC T-WAVE ABNORMALITY ABNORMAL RHYTHM ECG PREVIOUS TRACING : 09/18/2017 16.58 Since the previous tracing, no significant change noted DOCTOR: Joseluis Field Interpretating Date/Time 09/20/2017 14:56:33
[2017-09-20] MEDS: GABAPENTIN 300 MG CAP PO SCH (22:04)
[2017-09-20] MEDS: CARBIDOPA/LEVODOPA 25 MG/100 MG TAB PO SCH (22:09)
[2017-09-21] VITALS (8 sets, daily range): BP systolic 105–139; BP diastolic 57–77; PULSE 70–95; RESP 17–20; TEMP 95.6–98.7; O2SAT 93–100
[2017-09-21] MEDS: RESP: ALBUTEROL 2.5 MG/IPRATROPIUM 0.5 MG NEB (SCH) INH ×3 (02:35→15:43)
[2017-09-21] MEDS: INSULIN ASPART SUPPLEMENTAL SCALE SQ SCH ×2 (08:00→12:00)
[2017-09-21] MEDS ORDERED: predniSONE 20 MG TAB PO SCH (09:00)
[2017-09-21] MEDS: TIOTROPIUM BROMIDE 18 MCG INH INH SCH (09:05)
[2017-09-21] MEDS: HEPARIN SODIUM - SQ 10,000 UNITS/ML VIAL SQ SCH (09:05)
[2017-09-21] MEDS: ASPIRIN 81 MG CHEW TAB CHEW SCH (09:05)
[2017-09-21] MEDS: BUDESONIDE-FORMOTEROL 160/4.5 MCG INHALER INH SCH (09:06)
[2017-09-21] MEDS: SODIUM CHLORIDE 0.9% FLUSH 10 ML FLUSH IV FLUSH SCH (09:06)
[2017-09-21] MEDS: POTASSIUM CHLORIDE 20 MEQ CONTROLLED RELEASE TAB PO SCH (09:06)
[2017-09-21] MEDS: metFORMIN HCL 500 MG TAB PO SCH (09:06)
[2017-09-21] MEDS: BRIMONIDINE TARTRATE 0.15% OPHT SOLN 5 ML BTL RIGHT EYE SCH (09:07)
[2017-09-21] MEDS: FUROSEMIDE 40 MG TAB PO SCH (09:07)
[2017-09-21] MEDS: PRAVASTATIN SOD 40 MG TAB PO SCH (09:07)
[2017-09-21] MEDS: PANTOPRAZOLE SOD 20 MG DELAYED RELEASE TAB PO SCH (09:07)
[2017-09-21] MEDS: LISINOPRIL 5 MG TAB PO SCH (09:07)
[2017-09-21] MEDS: INSULIN DETEMIR 100 UNITS/ML VIAL SQ SCH (09:08)
--- NOTE | 2017-09-21 09:13 | HHI.PR ---
Subjective Remarks Follow patient with COPD exacerbation. Patient seen and examined. Patient reports his breathing is at baseline. He reports cough with scant sputum production. He denies any fever or chills. He denies any chest pain or dyspnea. He denies any lower extremity edema. Objective Vitals Vital Signs Date Time Temp Pulse Resp B/P (MAP) Pulse Ox O2 Delivery O2 Flow Rate FiO2 09/21/17 07:25 70 09/21/17 04:22 79 17 111/58 (75) 98 09/21/17 02:36 100 40 09/21/17 00:07 89 17 105/57 (73) 99 09/20/17 23:25 98 40 09/20/17 19:56 98.5 96 18 119/66 (83) 94 09/20/17 16:00 96.8 101 20 102/58 (73) 96 09/20/17 13:32 98 09/20/17 12:00 96.6 95 20 124/55 (78) 91 09/20/17 10:10 96 Nasal Cannula 3.00 I/O 09/20/17 09/20/17 09/20/17 09/21/17 09/21/17 09/21/17 07:00 15:00 23:00 07:00 15:00 23:00 Intake Total 200 ml Output Total 600 ml Balance -600 ml 200 ml Intake Oral 200 ml Output Urine Total 600 ml # Voids 3 Result Diagram: 09/19/17 0705 09/19/17 0705 Imaging Last Impressions Chest X-Ray 09/18/17 1628 Signed Impressions: CONCLUSION: Mild interstitial prominence Objective Remarks GENERAL: WDWN obese male patient, INAD. Sitting up on side of bed. Appears comfortable. SKIN: No rashes, ecchymoses or lesions. Cool and dry. HEAD: Atraumatic. Normocephalic. EYES: Pupils equal round and reactive. Extraocular motions intact. No scleral icterus. No injection or drainage. ENT: Nose without bleeding or purulent drainage. Airway patent. MMM. NECK: Trachea midline. CARDIOVASCULAR: Regular rate and rhythm without murmurs, gallops, or rubs. RESPIRATORY: No use of accessory muscles. Fair air entry. No wheezing noted. GASTROINTESTINAL: Abdomen soft, non-tender, nondistended. No guarding. MUSCULOSKELETAL: Extremities without clubbing or cyanosis. No BLE edema. No calf tenderness. NEUROLOGICAL: Awake and alert. Cranial nerves II through XII grossly intact. Motor and sensory grossly within normal limits. Nonfocal. Normal speech. PSYCHIATRIC: Appropriate mood and affect. Normal judgment and insight. Procedures None A/P Assessment and Plan 67-year-old male with a past medical history significant for CLARI, COPD, neuropathy, diabetes mellitus, peptic ulcer disease, coronary artery disease, restless leg syndrome, CHF (EF of 55-60%) and hyperlipidemia presents the emergency department for evaluation of chest tightness with accompanying shortness of breath. Acute on chronic respiratory failure Oxygen dependent on 2-3L at home CLARI, on CPAP COPD, acute exacerbation, much improved Ongoing tobaccoism -Continue on scheduled duo nebs -continue on po steroid burst -Continue on Symbicort and Spiriva per home regimen -Continue on supplemental oxygen to maintain O2 sat greater than 92% -Continue to monitor respiratory status -Discussed importance of smoking cessation, counseling offered. Offered nicotine patch but patient declined. -add Mucinex BID CAD s/p cardiac stent implant 2012 Initial trop 0.02, CK 390, CKMB 10.2 patient has no complaints of chest pain r/o ACS -Continue aspirin 81 mg daily -Continue to monitor Denies CHF but on Lasix Last echo 2017 shows EF 50-55% CXR showed interstitial prominence, probable CHF exacerbation BNP 12 -Patient given one-time dose of IV Lasix in the ED. Continue on home dose of Lasix 40 mg twice daily and KCL 20meq daily. Monitor electrolytes. -Obtain 2D echocardiogram/pending -CHF teaching -sodium restricted diet Hypertension, controlled Hyperlipidemia -Continue on home dose of lisinopril and Lasix -Continue on home dose of Pravachol 40 mg daily -Continue to monitor BP and adjust treatment accordingly CAESAR, creatinine 1.32 creatinine baseline appears to be around 0.8 to 0.9 improved, now 1.07 -Avoid IV fluids secondary to CHF -Avoid nephrotoxic agents -Continue to monitor kidney function as indicated DM Blood sugars uncontrolled while on IV steroids, BS 282 this am A1c 9.2 -Patient resumed on home dose of Levemir 60 units twice daily and NovoLog 27 units twice daily. Increase Levemir to 70 units twice daily. Change to low dose insulin sliding scale. Change to diabetic diet. -continue Metformin 1000mg BID -Continue on Accu-Cheks and ISS Diabetic neuropathy -Continue on home dose of gabapentin RLS -Continue on Sinemet DVT prophylaxis -Heparin subcu Discharge Planning Patient may be discharged today pending echocardiogram results. Nakia Bruce Sep 21, 2017 09:13
[2017-09-21] MEDS ORDERED: guaiFENesin E.R. 600 MG TAB PO ONE (09:15)
[2017-09-21] MEDS: INSULIN ASPART 1,000 UNITS/10 ML VIAL SQ SCH (09:16)
[2017-09-21] MEDS ORDERED: guaiFENesin ER PO (09:17)
[2017-09-21] MEDS ORDERED: PRED20 PO (09:17)
--- NOTE | 2017-09-21 09:20 | HHI.DCPOC ---
Discharge Care Plan Diagnosis: (1) Acute kidney failure (2) CHF exacerbation (3) COPD exacerbation (4) Tobacco abuse (5) CHF (congestive heart failure) (6) Obstructive sleep apnea Goals to Promote Your Health * To prevent worsening of your condition and complications * To maintain your health at the optimal level Directions to Meet Your Goals You are strongly advised to stop smoking Take your medications as prescribed Follow your dietary instruction Follow activity as directed Keep your appointments as scheduled Take your immunizations and boosters as scheduled If your symptoms worsen call your PCP, if no PCP go to Urgent Care Center or Emergency Room Smoking is Dangerous to Your Health. Avoid second hand smoke Call the 24-hour hour crisis hotline for domestic abuse at Nakia Bruce Sep 21, 2017 09:20
--- NOTE | 2017-09-21 09:26 | HHI.DS ---
Discharge Summary Admission Date Sep 18, 2017 at 21:08 Discharge Date: Sep 21, 2017 Admitting Diagnosis acute COPD exacerbation, CHF (1) COPD exacerbation ICD Code: J44.1 - Chronic obstructive pulmonary disease with (acute) exacerbation Status: Acute (2) Acute respiratory failure ICD Code: J96.00 - Acute respiratory failure, unspecified whether with hypoxia or hypercapnia Status: Acute (3) CHF exacerbation ICD Code: I50.9 - Heart failure, unspecified (4) Ejection fraction < 50% ICD Code: R94.30 - Abnormal result of cardiovascular function study, unspecified (5) Acute kidney failure ICD Code: N17.9 - Acute kidney failure, unspecified (6) Tobacco abuse ICD Code: Z72.0 - Tobacco use Status: Acute (7) Diabetes mellitus ICD Code: E11.9 - Diabetes mellitus Status: Chronic (8) CAD (coronary artery disease) ICD Code: I25.10 - CAD (coronary artery disease) Status: Chronic (9) Obstructive sleep apnea ICD Code: G47.33 - Obstructive sleep apnea Status: Chronic Procedures None Brief History - From Admission 67-year-old male with a past medical history significant for CLARI, COPD, neuropathy, diabetes mellitus, peptic ulcer disease, coronary artery disease, restless leg syndrome, CHF (EF of 55-60%) and hyperlipidemia presents the emergency department for evaluation of chest tightness with accompanying shortness of breath. The patient reports his shortness of breath started Friday and acutely worsened on Friday. He is on home oxygen 2-3 L continuously. The patient reports his shortness of breath has gotten so bad that he becomes dyspneic with exertion and with talking. He denies any chest pain/pressure. No cough. No abdominal pain. No nausea/vomiting/diarrhea. No lateralizing signs/symptoms. No fevers/chills. CBC/BMP: 09/19/17 0705 09/19/17 0705 Significant Findings Laboratory Tests Test 09/18/17 17:11 09/18/17 20:20 09/19/17 07:05 09/19/17 15:24 Mean Corpuscular Hemoglobin Concent 31.9 % (32.0-36.0) Monocytes (%) (Auto) 10.8 % (0.0-8.0) Creatinine 1.32 MG/DL (0.60-1.30) Random Glucose 368 MG/DL (74-106) 291 MG/DL (74-106) Calcium Level 8.4 MG/DL (8.5-10.1) Sodium Level 135 MEQ/L (136-145) 134 MEQ/L (136-145) Chloride Level 97 MEQ/L (98-107) 94 MEQ/L (98-107) Carbon Dioxide Level 33.6 MEQ/L (21.0-32.0) Anion Gap 4 MEQ/L (5-15) Estimat Glomerular Filtration Rate 54 ML/MIN (>89) 69 ML/MIN (>89) Total Creatine Kinase 390 U/L (39-308) Creatine Kinase MB 10.2 NG/ML (0.5-3.6) Troponin I LESS THAN 0.02 NG/ML LESS THAN 0.02 NG/ML Neutrophils (%) (Auto) 83.1 % (16.0-70.0) Lymphocytes # (Auto) 0.8 TH/MM3 (1.0-4.8) Blood Urea Nitrogen 21 MG/DL (7-18) Hemoglobin A1c 9.2 % (4.3-6.0) Test 09/19/17 20:40 09/20/17 02:26 Troponin I LESS THAN 0.02 NG/ML LESS THAN 0.02 NG/ML Imaging Last Impressions Chest X-Ray 09/18/17 1628 Signed Impressions: CONCLUSION: Mild interstitial prominence PE at Discharge GENERAL: WDWN obese male patient, INAD. Sitting up on side of bed. Appears comfortable. SKIN: No rashes, ecchymoses or lesions. Cool and dry. HEAD: Atraumatic. Normocephalic. EYES: Pupils equal round and reactive. Extraocular motions intact. No scleral icterus. No injection or drainage. ENT: Nose without bleeding or purulent drainage. Airway patent. MMM. NECK: Trachea midline. CARDIOVASCULAR: Regular rate and rhythm without murmurs, gallops, or rubs. RESPIRATORY: No use of accessory muscles. Fair air entry. No wheezing noted. GASTROINTESTINAL: Abdomen soft, non-tender, nondistended. No guarding. MUSCULOSKELETAL: Extremities without clubbing or cyanosis. No BLE edema. No calf tenderness. NEUROLOGICAL: Awake and alert. Cranial nerves II through XII grossly intact. Motor and sensory grossly within normal limits. Nonfocal. Normal speech. PSYCHIATRIC: Appropriate mood and affect. Normal judgment and insight. Pt update on day of discharge Follow patient with COPD exacerbation. Patient seen and examined. Patient reports his breathing is at baseline. He reports cough with scant sputum production. He denies any fever or chills. He denies any chest pain or dyspnea. He denies any lower extremity edema. Hospital Course Patient admitted with acute on chronic respiratory failure secondary to COPD exacerbation. Patient oxygen dependent at home on 2-3 L continuously. Chest x- ray showed bilateral interstitial prominence concerning for possible CHF exacerbation as well. Patient was given IV Lasix dose 1 and continued on oral Lasix with good urine output. Patient also with acute kidney injury with creatinine of 1.32 with improvement of creatinine 1.07 prior to discharge. Patient ruled out acute coronary syndrome. COPD and CHF teaching were ordered. Patient with ongoing tobaccoism and discussed smoking cessation. Patient was started on IV Solu-Medrol and scheduled duo nebs as well as continued on his home bronchodilator therapy. Patient's blood sugar was elevated secondary to IV steroids and his scheduled insulin dose was increased with improvement. Patient's breathing improved and he was able to be tapered down to oral steroids. 2D echocardiogram was obtained revealing EF of 45%. Patient follows closely with his PCP at the [place]. Recommended patient obtain referral to see plate drying machine tender at the [facility] as well. Patient improved clinically. He was able to participate with physical therapy and no PT needs were identified following discharge. Patient was strongly advised to stop smoking during multiple visits. Patient was discharged to home in stable condition. Pt Condition on Discharge: Stable Discharge Disposition: Discharge Home Discharge Time: > 30 minutes Discharge Instructions DIET: Follow Instructions for: Heart Healthy Diet, Diabetic Diet Activities you can perform: Regular-No Restrictions Follow up Referrals: Cardiology - 1 Week PCP Follow-up - 1 Week New Medications: Prednisone (Prednisone) 20 Mg Tab 40 MG PO DAILY for COPD exacerbation, #3 TAB [guaiFENesin ER] () 600 MG TABCR 600 MG PO BID for COPD exacerbation, #10 Continued Medications: Aspirin (Aspirin) 81 Mg Chew 81 MG CHEW DAILY, TAB 0 Refills Brimonidine Opth Drops (Brimonidine Opth Drops) 0.15% Soln 1 DROP RIGHT EYE BID for Intraocular pressure, #1 BOTTLE 0 Refills Budesonide-Formoterol Inh (Symbicort Inh) 160-4.5 Mcg/Act Aero 2 PUFF INH Q12HR, #1 INHALER 0 Refills Carbidopa-Levodopa (Carbidopa-Levodopa) 25-100 Mg Tab 1 TAB PO HS for Parkinson Disease Mgmt, #90 TAB 0 Refills Furosemide (Lasix) 40 Mg Tab 40 MG PO BID@09,18 for Prevent Heart Failure, #60 TAB Gabapentin (Gabapentin) 300 Mg Cap 300 MG PO HS, #30 CAP 0 Refills Insulin Aspart Inj (Novolog Inj) 1,000 Unit/10 Ml Vial 27 UNITS SQ BID for Blood Sugar Management, #10 ML 0 Refills Insulin Glargine Inj (Lantus Inj) 1,000 Unit/10 Ml Vial 60 UNITS SQ BID for Blood Sugar Management, VIAL 0 Refills Ipratropium HFA 12.9 GM Inh (Atrovent HFA 12.9 GM Inh) 17 Mcg/Act Aer 2 PUFF INH QID for Breathing Treatment, #1 INHALER 0 Refills Latanoprost Opth Drops (Latanoprost Opth Drops) 0.005% Drops 1 DROP RIGHT EYE HS for Glaucoma, #2.5 ML 0 Refills Refrigerate until opened. Lisinopril (Lisinopril) 2.5 Mg Tab 2.5 MG PO DAILY, #30 TAB 0 Refills Lovastatin (Lovastatin) 40 Mg Tab 40 MG PO DAILY for Cholesterol Management, #30 TAB 0 Refills Metformin (Metformin) 1,000 Mg Tab 1000 MG PO BIDPC for Blood Sugar Management, #60 TAB 0 Refills With meals Omeprazole (Omeprazole) 20 Mg Cap 20 MG PO DAILY Potassium Chloride ER (Potassium Chloride ER) 20 Meq Tab 20 MEQ PO DAILY for Electrolyte Replacement, #30 TAB 0 Refills Tiotropium Inh (Spiriva Handihaler) 18 Mcg Cap 18 MCG INH DAILY for COPD, #30 CAP 0 Refills 1 capsule = 18 mcg Discontinued Medications: Prednisone (Prednisone) 5 Mg Tab 5 MG PO DIRECTED for copd for 10 Days, TAB 0 Refills 40 mg po daily for two days then 30 mg po daily for two days then 20 mg po daily for two days then 10 mg po daily for two days then 5 mg po daily for two days then stop. [place],Nakia PA Sep 21, 2017 09:26
--- NOTE | 2017-09-21 13:41 | ECHRPT ---
Indication: CONCLUSIONS Very technically difficult study In extremely limited views, the overall ejection fraction appears to be somewhat reduced, probably i n the area of 45%, although very difficult to determine. Clinically, if basing decision on this, would co nsider other modality to determine. There was limited left ventricular wall motion assessment due to poor endocardial visualization. Mild concentric left ventricular hypertrophy. BP: / HR: Rhythm: MEASUREMENTS (Male / Female) Normal Values Technical Quality:Very technically difficult study 2D ECHO LV Diastolic Diameter PLAX 4.8 cm 4.2 - 5.9 / 3.9 - 5.3 cm LV Systolic Diameter PLAX 3.9 cm IVS Diastolic Thickness 1.4 cm 0.6 - 1.0 / 0.6 - 0.9 cm LVPW Diastolic Thickness 1.0 cm 0.6 - 1.0 / 0.6 - 0.9 cm LV Relative Wall Thickness 0.5 RV Internal Dim ED PLAX 2.6 cm DOPPLER Mitral E Point Velocity 59.2 cm/s Mitral A Point Velocity 75.5 cm/s Mitral E to A Ratio 0.8 TR Peak Velocity 270.0 cm/s TR Peak Gradient 29.2 mmHg Right Atrial Pressure 10.0 mmHg Pulmonary Artery Systolic Pressu 39.2 mmHg Right Ventricular Systolic Press 39.2 mmHg FINDINGS LEFT VENTRICLE Normal left ventricular size. Mild concentric left ventricular hypertrophy. There was limited left ventricular wall motion assessment due to poor endocardial visualization. In extremely limited views, the overall ejection fraction appears to be somewhat reduced, probably i n the area of 45%, although very difficult to determine. Clinically, if basing decision on this, would co nsider other modality to determine. RIGHT VENTRICLE The right ventricle was not well visualized. LEFT ATRIUM The left atrium was not well visualized. RIGHT ATRIUM The right atrium is not well visualized. ATRIAL SEPTUM The interatrial septum not well visualized. AORTA The aortic root and proximal ascending aorta are not well visualized. MITRAL VALVE The mitral valve is not well visualized. No mitral valve regurgitation. No mitral valve stenosis. AORTIC VALVE The aortic valve is not well visualized. TRICUSPID VALVE The tricuspid valve is not well visualized. There is trace tricuspid valve regurgitation. No tricuspid valve stenosis. The estimated pulmonary arterial pressure is 40mmHg. PULMONARY VALVE The pulmonary valve is not well visualized. Iban Siddiqui DO (Electronically Signed) Final Date:21 September 2017 13:40
[2017-09-21] MEDS ORDERED: INSULIN DETEMIR 100 UNITS/ML VIAL SQ SCH ×2 (21:00)
[2017-09-21] MEDS ORDERED: guaiFENesin E.R. 600 MG TAB PO SCH (21:00)
== END 2017-09-21 20:42 | disposition home or self-care (01) ==
LOC: NEPE 16:18 → NEDA 21:08 → NEPHCDU 09-19 00:15
PROVIDERS: ADMIT Internal Medicine; ATTEND Internal Medicine
DX: J44.1 Chronic obstructive pulmonary disease with (acute) exacerbation (principal); E11.40 Type 2 diabetes mellitus with diabetic neuropathy, unspecified; E11.65 Type 2 diabetes mellitus with hyperglycemia; I25.10 Atherosclerotic heart disease of native coronary artery without angina pectoris; I11.0 Hypertensive heart disease with heart failure; I50.9 Heart failure, unspecified; J96.20 Acute and chronic respiratory failure, unspecified whether with hypoxia or hypercapnia; R00.0 Tachycardia, unspecified; G47.33 Obstructive sleep apnea (adult) (pediatric); I25.2 Old myocardial infarction; E78.5 Hyperlipidemia, unspecified; G25.81 Restless legs syndrome; N17.9 Acute kidney failure, unspecified; K21.9 Gastro-esophageal reflux disease without esophagitis; E66.9 Obesity, unspecified; M19.90 Unspecified osteoarthritis, unspecified site; F17.200 Nicotine dependence, unspecified, uncomplicated; Z79.4 Long term (current) use of insulin; Z99.81 Dependence on supplemental oxygen; Z79.82 Long term (current) use of aspirin; Z79.899 Other long term (current) drug therapy; Z95.5 Presence of coronary angioplasty implant and graft
CPT/HCPCS: 71045; 80048; 82550; 82552; 82948; 83036; 83880; 84484; 85025; 85610; 85730; 93005; 93306; 94002; 94003; 94640; 94664; 96365; 96372; 96375; 96376; 97161; 99285; G0378; G8987; G8988; J0456; J1644; J1815; J1940; J2920; J2930; J7050; J7512

== ENCOUNTER 2018-02-25 12:31 | Inpatient (IN) ==
--- NOTE | 2018-02-25 15:12 | ED ---
HPI General Chief complaint: Extremity Problem,Nontraumatic Stated complaint: leg pain/VA sent Time Seen by Provider: 02/25/18 14:42 Source: patient Mode of arrival: wheelchair Limitations: no limitations History of Present Illness HPI Narrative: Patient is a 67-year-old male here today for right lower extremity swelling and pain times 3 days. Nothing has made the pain better, palpation and ambulation make it worse. Calf is swollen and is painful. He does have significant medical history including diabetes, hypertension, COPD, apnea, ulcers. He quit smoking in September. He does have some shortness of breath however he states that he is always short of breath due to having COPD he is on nighttime oxygen. MD Complaint: Reports extremity pain and extremity swelling; Denies cold extremity, joint swelling and joint paint Onset (ago): day(s) (3 days) Pain Consistency: constant Location: Reports right and lower extremity Severity scale (1-10): 5 Quality: Reports burning and aching Relieving factors: nothing Exacerbating factors: walking and palpation Associated symptoms: Reports shortness of breath (Chronic this is not new. ); Denies chest pain Related Data Home Medications Medication Instructions Recorded Confirmed aspirin 81 mg PO DAILY 02/25/18 02/25/18 brimonidine 1 drp OPHTHALMIC (EYE) TID 02/25/18 02/25/18 budesonide-formoterol 2 puff INHALATION BID 02/25/18 02/25/18 bupropion HCl 150 mg PO QAM 02/25/18 02/25/18 carbidopa-levodopa 1 tab PO HS 02/25/18 02/25/18 furosemide 40 mg PO DAILY 02/25/18 02/25/18 insulin aspart U-100 [Novolog See Label Instructions .ROUTE 02/25/18 02/25/18 U-100 Insulin aspart] .COMPLEX insulin glargine 55 unit SUBCUT BID 02/25/18 02/25/18 lisinopril 2.5 mg PO DAILY 02/25/18 02/25/18 metformin 1,000 mg PO BID 02/25/18 02/25/18 omeprazole 20 mg PO DAILY 02/25/18 02/25/18 rosuvastatin 10 mg PO DAILY 02/25/18 02/25/18 Previous Rx's Medication Instructions Recorded apixaban [Eliquis] 5 mg PO BID@0600,1800 #60 tab 02/25/18 apixaban [Eliquis] 10 mg PO BID@0600,1800 #8 tab 02/25/18 Allergies Allergy/AdvReac Type Severity Reaction Status Date / Time No Known Allergies Allergy Verified 02/25/18 14:51 Review of Systems ROS: all other systems reviewed are negative [facility] Medical History Medical History COPD (chronic obstructive pulmonary disease) (Acute) Diabetes (Acute) Neuropathy (Acute) Sleep apnea (Acute) Social History Social History Substance History: No History of Abuse Second Hand Smoke Exposure: Yes Smoking Status: Former smoker Tobacco Type: Cigarettes How Often Do You Have a Drink Containing Alcohol: Monthly or less Recent Travel in [facility] within the Last 8 Weeks: No Recent Out of Country Travel within the Last 8 Weeks: No Immunization History Tetanus Immunization: <5 Years Exam Narrative Exam Narrative: GENERAL: Pt awake, alert, oriented. No acute distress. SKIN: Focused skin assessment warm/dry. R calf is swollen, painful calf to palpation, minimal erythema. (+) dorsalis pedis on affected foot. Capillary refill less than 2 seconds on all affected toes. Extremity warm, pink, dry. HEAD: Atraumatic. Normocephalic. EYES: Pupils equal and round. No scleral icterus. No injection or drainage. ENT: No nasal bleeding or discharge. Mucous membranes pink and moist. NECK: Trachea midline. No JVD. CARDIOVASCULAR: Regular rate and rhythm. (+) murmur appreciated. RESPIRATORY: No accessory muscle use. Diminished to auscultation throughout all lung farah. Breath sounds equal bilaterally. GASTROINTESTINAL: Abdomen soft, non-tender, nondistended. Hepatic and splenic margins not palpable. MUSCULOSKELETAL: No obvious deformities. No clubbing. No cyanosis. No edema. NEUROLOGICAL: Awake and alert. No obvious cranial nerve deficits. Motor grossly within normal limits. Normal speech. PSYCHIATRIC: Appropriate mood and affect; insight and judgment normal. Course Initial Documented Vital Signs Temperature 98.6 F 02/25/18 12:35 Pulse Rate 90 02/25/18 12:35 Respiratory Rate 16 02/25/18 12:35 Blood Pressure 120/57 L 02/25/18 12:35 Pulse Oximetry 94 L 02/25/18 12:35 Last Documented Vital Signs Temperature 98.3 F 02/26/18 16:00 Pulse Rate 90 02/26/18 16:00 Respiratory Rate 18 02/26/18 16:00 Blood Pressure 112/66 02/26/18 16:00 Pulse Oximetry 93 L 02/26/18 16:00 Medical Decision Making NICHOLAS Attestation NICHOLAS supervised visit: Yes Attestation: I, Dr. Pinto, have reviewed the advance practice practitioner's documentation and am in agreement, met with the patient face to face, made the diagnosis, and the medical decision making was done by me. *My assessment and Findings: Patient is a 67 year old male who comes in complaining of right leg pain and swelling. Exam shows tenderness to the right calf. Pedal pulses intact. Patient appears short of breath, though he says his breathing feels okay. Lungs CTA on exam. Right lower extremity is edematous and tender to palpation. Doppler is positive for DVT. CTA shows evidence of PE. Patient given Eliquis and admitted to medicine. MDM Narrative Medical decision making narrative: Medical decision making narrative: During the course of the patients emergency department visit, the patients history, examination, and differential diagnosis were reviewed with the patient. The patient was placed on a quality assurance monitor final with oximetry and frequent blood pressure monitoring. The patient was initially provided Labwork, IV, and Doppler u/s for RLE r/o DVT as well as (+) CTA chest. The patients laboratory studies were reviewed and remarkable for negative troponin, mild decrease in renal function. Radiology studies were reviewed and remarkable for, EKG showing normal sinus rhythm at a rate of [address] elevations or inversions MT interval is 176, qrs duration is 86. (+) R popliteal partially occlusive DVT as well as CTA (+) for RIGHT LOWER LUNG PE. Heparin drip protocol began. Call made to [facility], spoke with Dr. Starr who stated to stop heparin and give eliquis 10mg po x 1 dose now. Pt to be admitted for 24-hour observation with telemetry diagnosis PE right lower lung as well as DVT right popliteal. Medical Screen Exam Complete: Yes Emergency Medical Condition: Yes Medical Screen Exam Complete: Yes Emergency Medical Condition: Yes Lab Data Result diagrams: 02/26/18 05:18 02/26/18 05:18 Lab Results 02/25/18 02/25/18 02/25/18 Range/Units 15:10 15:10 15:10 WBC 8.1 (4.0-11.0) th/mm3 RBC 5.00 (4.50-5.90) mil/mm3 Hgb 14.4 (13.0-17.0) gm/dL Hct 44.2 (39.0-51.0) % MCV 88.4 (80.0-100.0) fL MCH 28.9 (27.0-34.0) pg MCHC 32.6 (32.0-36.0) % RDW 18.4 H (11.6-17.2) % Plt Count 221 (150-450) th/mm3 MPV 7.9 (7.0-11.0) fL Neut % (Auto) 67.0 (16.0-70.0) % Lymph % (Auto) 21.4 (9.0-44.0) % Dickson % (Auto) 9.3 H (0.0-8.0) % Eos % (Auto) 1.6 (0.0-4.0) % Baso % (Auto) 0.7 (0.0-2.0) % Neut # (Auto) 5.4 (1.8-7.7) th/mm3 Lymph # (Auto) 1.7 (1.0-4.8) th/mm3 Dickson # (Auto) 0.8 (0.0-0.9) th/mm3 Eos # (Auto) 0.1 (0.0-0.4) th/mm3 Baso # (Auto) 0.1 (0.0-0.2) th/mm3 WBC Differential . Differential Comment Auto diff final PT (9.8-11.6) sec INR Ratio APTT (23.4-31.7) sec Sodium 138 (136-145) meq/L Potassium 4.1 (3.5-5.1) meq/L Chloride 101 (98-107) meq/L Carbon Dioxide 28.2 (21.0-32.0) meq/L Anion Gap 9 (5-15) meq/L BUN 19 H (7-18) mg/dL Creatinine 1.31 H (0.60-1.30) mg/dL Estimated GFR 55 L (>89) mL/min POC Glucose (68-110) mg/dl Random Glucose 202 H (74-106) mg/dL Calcium 8.4 L (8.5-10.1) mg/dL Total Bilirubin 0.3 (0.2-1.0) mg/dL AST 25 (15-37) U/L ALT 31 (12-78) U/L Alkaline Phosphatase 79 (45-117) U/L Total Creatine Kinase 457 H (39-308) U/L CK-MB (CK-2) 7.7 H (0.5-3.6) ng/mL CK-MB (CK-2) % 1.7 (0.0-4.0) % Troponin I Less than 0.02 L (0.02-0.05) ng/mL Total Protein 7.7 (6.4-8.2) g/dL Albumin 3.2 L (3.4-5.0) g/dL Urine Color (Yellw/Straw) Urine Clarity (Clear) Urine pH (5.0-8.5) Ur Specific [place] (1.002-1.035) Urine Protein (Neg-Trace) mg/dL Urine Glucose (UA) (Negative) mg/dL Urine Ketones (Negative) mg/dL Urine Occult Blood (Negative) Urine Nitrate (Negative) Urine Bilirubin (Negative) Urine Urobilinogen (Less than 2) mg/dL Ur Leukocyte Esterase (Negative) Urine RBC (0-3) /hpf Urine WBC (0-5) /hpf Ur Squamous Epith Cells (0-5) /hpf Urine Bacteria (None) /hpf Micro UA Comment Ur Microscopic Review Urine Culture Comments 02/25/18 02/25/18 02/26/18 Range/Units 17:27 20:01 05:18 WBC 9.0 (4.0-11.0) th/mm3 RBC 5.05 (4.50-5.90) mil/mm3 Hgb 14.4 (13.0-17.0) gm/dL Hct 43.7 (39.0-51.0) % MCV 86.5 (80.0-100.0) fL MCH 28.5 (27.0-34.0) pg MCHC 32.9 (32.0-36.0) % RDW 18.0 H (11.6-17.2) % Plt Count 239 (150-450) th/mm3 MPV 8.1 (7.0-11.0) fL Neut % (Auto) (16.0-70.0) % Lymph % (Auto) (9.0-44.0) % Dickson % (Auto) (0.0-8.0) % Eos % (Auto) (0.0-4.0) % Baso % (Auto) (0.0-2.0) % Neut # (Auto) (1.8-7.7) th/mm3 Lymph # (Auto) (1.0-4.8) th/mm3 Dickson # (Auto) (0.0-0.9) th/mm3 Eos # (Auto) (0.0-0.4) th/mm3 Baso # (Auto) (0.0-0.2) th/mm3 WBC Differential Differential Comment PT 11.2 (9.8-11.6) sec INR 1.1 Ratio APTT 26.4 (23.4-31.7) sec Sodium (136-145) meq/L Potassium (3.5-5.1) meq/L Chloride (98-107) meq/L Carbon Dioxide (21.0-32.0) meq/L Anion Gap (5-15) meq/L BUN (7-18) mg/dL Creatinine (0.60-1.30) mg/dL Estimated GFR (>89) mL/min POC Glucose 138 H (68-110) mg/dl Random Glucose (74-106) mg/dL Calcium (8.5-10.1) mg/dL Total Bilirubin (0.2-1.0) mg/dL AST (15-37) U/L ALT (12-78) U/L Alkaline Phosphatase (45-117) U/L Total Creatine Kinase (39-308) U/L CK-MB (CK-2) (0.5-3.6) ng/mL CK-MB (CK-2) % (0.0-4.0) % Troponin I (0.02-0.05) ng/mL Total Protein (6.4-8.2) g/dL Albumin (3.4-5.0) g/dL Urine Color (Yellw/Straw) Urine Clarity (Clear) Urine pH (5.0-8.5) Ur Specific [place] (1.002-1.035) Urine Protein (Neg-Trace) mg/dL Urine Glucose (UA) (Negative) mg/dL Urine Ketones (Negative) mg/dL Urine Occult Blood (Negative) Urine Nitrate (Negative) Urine Bilirubin (Negative) Urine Urobilinogen (Less than 2) mg/dL Ur Leukocyte Esterase (Negative) Urine RBC (0-3) /hpf Urine WBC (0-5) /hpf Ur Squamous Epith Cells (0-5) /hpf Urine Bacteria (None) /hpf Micro UA Comment Ur Microscopic Review Urine Culture Comments 02/26/18 02/26/18 02/26/18 Range/Units 05:18 05:40 08:09 WBC (4.0-11.0) th/mm3 RBC (4.50-5.90) mil/mm3 Hgb (13.0-17.0) gm/dL Hct (39.0-51.0) % MCV (80.0-100.0) fL MCH (27.0-34.0) pg MCHC (32.0-36.0) % RDW (11.6-17.2) % Plt Count (150-450) th/mm3 MPV (7.0-11.0) fL Neut % (Auto) (16.0-70.0) % Lymph % (Auto) (9.0-44.0) % Dickson % (Auto) (0.0-8.0) % Eos % (Auto) (0.0-4.0) % Baso % (Auto) (0.0-2.0) % Neut # (Auto) (1.8-7.7) th/mm3 Lymph # (Auto) (1.0-4.8) th/mm3 Dickson # (Auto) (0.0-0.9) th/mm3 Eos # (Auto) (0.0-0.4) th/mm3 Baso # (Auto) (0.0-0.2) th/mm3 WBC Differential Differential Comment PT (9.8-11.6) sec INR Ratio APTT (23.4-31.7) sec Sodium 139 (136-145) meq/L Potassium 4.0 (3.5-5.1) meq/L Chloride 99 (98-107) meq/L Carbon Dioxide 33.1 H (21.0-32.0) meq/L Anion Gap 7 (5-15) meq/L BUN 24 H (7-18) mg/dL Creatinine 0.92 (0.60-1.30) mg/dL Estimated GFR 82 L (>89) mL/min POC Glucose 152 H (68-110) mg/dl Random Glucose 136 H (74-106) mg/dL Calcium 8.7 (8.5-10.1) mg/dL Total Bilirubin (0.2-1.0) mg/dL AST (15-37) U/L ALT (12-78) U/L Alkaline Phosphatase (45-117) U/L Total Creatine Kinase (39-308) U/L CK-MB (CK-2) (0.5-3.6) ng/mL CK-MB (CK-2) % (0.0-4.0) % Troponin I (0.02-0.05) ng/mL Total Protein (6.4-8.2) g/dL Albumin (3.4-5.0) g/dL Urine Color Yellow (Yellw/Straw) Urine Clarity Clear (Clear) Urine pH 5.0 (5.0-8.5) Ur Specific [place] 1.027 (1.002-1.035) Urine Protein Negative (Neg-Trace) mg/dL Urine Glucose (UA) 500 or greater (Negative) mg/dL Urine Ketones Negative (Negative) mg/dL Urine Occult Blood Negative (Negative) Urine Nitrate Negative (Negative) Urine Bilirubin Negative (Negative) Urine Urobilinogen Less than 2 (Less than 2) mg/dL Ur Leukocyte Esterase Negative (Negative) Urine RBC 2 (0-3) /hpf Urine WBC 4 (0-5) /hpf Ur Squamous Epith Cells 1 (0-5) /hpf Urine Bacteria Rare H (None) /hpf Micro UA Comment Culture not ind Ur Microscopic Review Not Reportable Urine Culture Comments Culture not ind 02/26/18 02/26/18 Range/Units 12:53 16:32 WBC (4.0-11.0) th/mm3 RBC (4.50-5.90) mil/mm3 Hgb (13.0-17.0) gm/dL Hct (39.0-51.0) % MCV (80.0-100.0) fL MCH (27.0-34.0) pg MCHC (32.0-36.0) % RDW (11.6-17.2) % Plt Count (150-450) th/mm3 MPV (7.0-11.0) fL Neut % (Auto) (16.0-70.0) % Lymph % (Auto) (9.0-44.0) % Dickson % (Auto) (0.0-8.0) % Eos % (Auto) (0.0-4.0) % Baso % (Auto) (0.0-2.0) % Neut # (Auto) (1.8-7.7) th/mm3 Lymph # (Auto) (1.0-4.8) th/mm3 Dickson # (Auto) (0.0-0.9) th/mm3 Eos # (Auto) (0.0-0.4) th/mm3 Baso # (Auto) (0.0-0.2) th/mm3 WBC Differential Differential Comment PT (9.8-11.6) sec INR Ratio APTT (23.4-31.7) sec Sodium (136-145) meq/L Potassium (3.5-5.1) meq/L Chloride (98-107) meq/L Carbon Dioxide (21.0-32.0) meq/L Anion Gap (5-15) meq/L BUN (7-18) mg/dL Creatinine (0.60-1.30) mg/dL Estimated GFR (>89) mL/min POC Glucose 147 H 258 H (68-110) mg/dl Random Glucose (74-106) mg/dL Calcium (8.5-10.1) mg/dL Total Bilirubin (0.2-1.0) mg/dL AST (15-37) U/L ALT (12-78) U/L Alkaline Phosphatase (45-117) U/L Total Creatine Kinase (39-308) U/L CK-MB (CK-2) (0.5-3.6) ng/mL CK-MB (CK-2) % (0.0-4.0) % Troponin I (0.02-0.05) ng/mL Total Protein (6.4-8.2) g/dL Albumin (3.4-5.0) g/dL Urine Color (Yellw/Straw) Urine Clarity (Clear) Urine pH (5.0-8.5) Ur Specific [place] (1.002-1.035) Urine Protein (Neg-Trace) mg/dL Urine Glucose (UA) (Negative) mg/dL Urine Ketones (Negative) mg/dL Urine Occult Blood (Negative) Urine Nitrate (Negative) Urine Bilirubin (Negative) Urine Urobilinogen (Less than 2) mg/dL Ur Leukocyte Esterase (Negative) Urine RBC (0-3) /hpf Urine WBC (0-5) /hpf Ur Squamous Epith Cells (0-5) /hpf Urine Bacteria (None) /hpf Micro UA Comment Ur Microscopic Review Urine Culture Comments Imaging Data Radiologist's impression: Chest X-Ray 02/25/18 14:56 CONCLUSION: No acute abnormality is seen. Venous Doppler Study 02/25/18 14:56 CONCLUSION: Partially occlusive thrombus present in the right popliteal vein and posterior tibial vein Chest CTA 02/25/18 16:12 CONCLUSION: 1. Positive for small pulmonary emboli, predominantly in the right lower lobe. 2. Dense coronary calcifications, predominantly LAD. 3. Mild to moderate centrilobular emphysema. Discharge Plan Discharge Disposition Patient Disposition: 30 Still Patient Discharge Condition Condition: Stable Discharge Details Diagnosis: Pulmonary embolism, Deep vein thrombosis of lower extremity Physicians Team ED Provider: Joana Pinto ED Midlevel Provider: Natalie El Primary Care Provider: [facility] [place] Attending Provider: Jeff Obrien Other Providers: Yeison Maldonado ; Florencia Higgins Status ED Status: Left Department Discharge Information Discharge Date/Time: 02/25/18 19:57
[2018-02-25 15:28] LABS: Baso # (Auto) 0.1 th/mm3 (0.0-0.2); Baso % (Auto) 0.7 % (0.0-2.0); Eos # (Auto) 0.1 th/mm3 (0.0-0.4); Eos % (Auto) 1.6 % (0.0-4.0); Hematocrit 44.2 % (39.0-51.0); Hemoglobin 14.4 gm/dL (13.0-17.0); Lymph # (Auto) 1.7 th/mm3 (1.0-4.8); Lymph % (Auto) 21.4 % (9.0-44.0); Mean Corpuscular HGB Conc 32.6 % (32.0-36.0); Mean Corpuscular Hemoglobin 28.9 pg (27.0-34.0); Mean Corpuscular Volume 88.4 fL (80.0-100.0); Mean Platelet Volume 7.9 fL (7.0-11.0); Mono # (Auto) 0.8 th/mm3 (0.0-0.9); Mono % (Auto) 9.3 % (0.0-8.0); Neut # (Auto) 5.4 th/mm3 (1.8-7.7); Platelet Count 221 th/mm3 (150-450); Red Cell Distribution Width 18.4 % (11.6-17.2); White Blood Count 8.1 th/mm3 (4.0-11.0)
--- NOTE | 2018-02-25 15:38 | XR ---
EXAM DATE: 02/25/2018 3:34 PM EST AGE/SEX: 67 years / Male INDICATIONS: Shortness of breath and leg pain. CLINICAL DATA: This is the patient's initial encounter. Patient reports that signs and symptoms have been present for 1 day and indicates a pain score of 0/10. MEDICAL/SURGICAL HISTORY: . Myocardial infarction. Hypercholesterolemia. Chronic obstructive p ulmonary disease. GERD. Hypertension. Cholecystectomy. 1 cardiac stent. COMPARISON: No prior exams available for comparison. FINDINGS: The heart size is normal. The lungs are free of focal consolidation. The does appear to calcified gra nuloma at the lateral left lower lung. No effusion is seen. CONCLUSION: No acute abnormality is seen. Electronically signed by: Catracho Godfrey MD 02/25/2018 3:37 PM EST
[2018-02-25 15:54] LABS: Alanine Aminotransferase 31 U/L (12-78); Albumin 3.2 g/dL (3.4-5.0); Anion Gap 9 meq/L (5-15); Aspartate Aminotransferase 25 U/L (15-37); Blood Urea Nitrogen 19 mg/dL (7-18); Calcium 8.4 mg/dL (8.5-10.1); Carbon Dioxide 28.2 meq/L (21.0-32.0); Chloride 101 meq/L (98-107); Glomerular Filtration Rate 55 mL/min (>89); Glucose,Random 202 mg/dL (74-106); Potassium 4.1 meq/L (3.5-5.1); Sodium 138 meq/L (136-145)
[2018-02-25 15:58] LABS: Alkaline Phosphatase 79 U/L (45-117); Total Protein 7.7 g/dL (6.4-8.2)
--- NOTE | 2018-02-25 16:11 | US ---
EXAM DATE: 02/25/2018 3:51 PM EST AGE/SEX: 67 years / Male INDICATIONS: Right leg pain. CLINICAL DATA: This is the patient's initial encounter. Patient reports that signs and symptoms have been present for 4 - 6 days and indicates a pain score of 7/10. MEDICAL/SURGICAL HISTORY: Chronic obstructive pulmonary disease. Diabetes. None. COMPARISON: . TECHNIQUE: Venous ultrasound of both lower extremities was performed from the inguinal ligament to t he proximal calf. Real-time, color Doppler and spectral tracing, compression and augmentation techni ques were used. FINDINGS: There is incompletely occlusive thrombus present in the popliteal vein and the posterior t ibial vein. The more proximal venous structures are patent and unremarkable. Specifically, the superf icial femoral vein and common femoral vein are patent. Visualized iliac vein appears to be patent. CONCLUSION: Partially occlusive thrombus present in the right popliteal vein and posterior tibial vein Electronically signed by: Catracho Aponte MD 02/25/2018 4:09 PM EST
[2018-02-25] MEDS ORDERED: Morphine Sulfate Inj 2 MG/ML Vial IV.PUSH ONE (16:16)
--- NOTE | 2018-02-25 16:46 | CT ---
EXAM DATE: 02/25/2018 4:36 PM EST AGE/SEX: 67 years / Male INDICATIONS: Tachypnea right leg pain CLINICAL DATA: This is the patient's initial encounter. Patient reports that signs and symptoms have been present for 1 day and indicates a pain score of 10/10. MEDICAL/SURGICAL HISTORY: Chronic obstructive pulmonary disease. Diabetes. Cardiovascular disease . Hypertension Cholecystectomy. Coronary artery stent. RADIATION DOSE: 10.51 CTDI (mGy) COMPAR[place]: [facility] [place]15/2016. . TECHNIQUE: Volumetric scanning was performed using a multi-row detector CT scanner during bolus infu garth of 72 ml Omnipaque 350 (iohexol) nonionic water-soluble contrast as a single exam dose. The woody a was post processed with a variety of visualization algorithms including full volume maximum intensi ty projection and sliding thin slab reformation. Using automated exposure control and adjustment of the mA and/or kV according to patient size, radiation dose was kept as low as reasonably achievable t o obtain optimal diagnostic quality images. DICOM format image data is available electronically for review and comparison. FINDINGS: The examination is positive for pulmonary emboli, predominantly on the right side of the segmental le alirio in the lower lobe. There is mild to moderate centrilobular emphysema. There is some atelectasis a nd scarring in the right middle lobe. No pleural or pericardial effusion. No hilar, mediastinal or axillary adenopathy. CONCLUSION: 1. Positive for small pulmonary emboli, predominantly in the right lower lobe. 2. Dense coronary calcifications, predominantly LAD. 3. Mild to moderate centrilobular emphysema. Electronically signed by: Yeyo Winn MD 02/25/2018 4:44 PM EST
[2018-02-25] MEDS ORDERED: Heparin Drip 25,000 UNIT/250 ML BAG IV.CONT PRN (16:59)
[2018-02-25] MEDS ORDERED: Heparin 10,000 UNITS/10 ML Vial (for IV use) IV.PUSH STA (16:59)
[2018-02-25 17:51] LABS: Activated Partial Thrombo Time 26.4 sec (23.4-31.7); INR 1.1 Ratio; Prothrombin Time 11.2 sec (9.8-11.6)
[2018-02-25] MEDS ORDERED: Sod Chloride 0.9% Inj 1,000 ML IV.CONT SCH (18:27)
--- NOTE | 2018-02-25 18:53 | P.HP ---
History of Present Illness Service: [facility] hospitalist service Primary Care Physician: [facility] Chief Complaint: Right leg swelling, shortness of breath History of Present Illness: Patient is a [id number] male with history of CAD status post stent in 2012, history of restless leg syndrome, GERD, obstructive sleep apnea on BiPAP at bedtime, history of diabetes type 2 insulin requiring plus on metformin, history of depression/anxiety who presented to the ER complaining of right lower extremity pain and shortness of breath. His symptoms actually started about 4 days prior to admission where patient suddenly experienced acute pain on the right lower extremity. Patient denies any trauma. Pain was intermittent associated with some swelling. Patient thought that he just pulled a muscle and no consult was done. Then about 2 days prior to admission patient complained of increasing shortness of breath. And came to the emergency room and on evaluation was noted to have an acute DVT of the right lower extremity with acute pulmonary embolism. Patient start patient admitted for further evaluation. Patient with history of CAD status post stent in 2012 is on Lasix 40 mg daily, lisinopril 2.5 mg daily Hyperlipidemia on rosuvastatin 10 mg daily History of obstructive sleep apnea/on BiPAP at bedtime, COPD on albuterol and Spiriva inhaler, he uses oxygen at home at bedtime and as needed for shortness of breath. History of diabetes type 2 on Lantus 55 units twice a day plus Metformin 1 g twice daily History of restless leg syndrome on carbidopa 25/100 at bedtime History of anxiety disorder on bupropion IN 150 mg every morning Inpatient Certification: I certify that the inpatient services were ordered in accordance with Medicare regulations governing the order. This includes certification that hospital inpatient services are reasonable and necessary and in the case of services not specified as inpatient-only under 42 CFR 419.22(n), that they are appropriately provided as inpatient services in accordance to with the 2-midnight benchmark under 43 CFR 412.3(e) Estimated Total Length of Stay (Days): 2 Plans for Post Hospital Care: Not yet determined PMFSH - History History Provided By: Patient - Medical History Medical History: Medical History (Last Updated 02/25/18 @ 14:42 by Tana Ryan) COPD (chronic obstructive pulmonary disease) Diabetes Neuropathy Sleep apnea - Tobacco History Tobacco Use In Past 30 Days: No Smoking Status: Former smoker Tobacco Type: Cigarettes - Alcohol History How Often Do You Have a Drink Containing Alcohol: Monthly or less - Substance Use History Substance History: No History of Abuse - Travel History Recent Travel in the [place] Within the Last 8 Weeks: No Recent Travel Out of the Country Within the Last 8 Weeks: No - Immunization History Tetanus Immunization: <5 Years Medications and Allergies Active Medications: Active Medications Apixaban (Eliquis) 10 mg PO BID MEGHANN Stop: 03/05/18 05:59 Sodium Chloride (Ns Inj) 1,000 mls @ 50 mls/hr IV.CONT .Q20H MEGHANN Sodium Chloride (Ns Flush) 2 ml IV.FLUSH PRN PRN PRN Reason: FLUSH AFTER USING IV ACCESS Allergies Allergy/AdvReac Type Severity Reaction Status Date / Time No Known Allergies Allergy Verified 02/25/18 14:51 Home Medications Medication Instructions Recorded Confirmed Type aspirin 81 mg PO DAILY 02/25/18 02/25/18 History brimonidine 1 drp OPHTHALMIC (EYE) TID 02/25/18 02/25/18 History budesonide-formoterol 2 puff INHALATION BID 02/25/18 02/25/18 History bupropion HCl 150 mg PO QAM 02/25/18 02/25/18 History carbidopa-levodopa 1 tab PO HS 02/25/18 02/25/18 History furosemide 40 mg PO DAILY 02/25/18 02/25/18 History insulin aspart U-100 [Novolog See Label Instructions .ROUTE 02/25/18 02/25/18 History U-100 Insulin aspart] .COMPLEX insulin glargine 55 unit SUBCUT BID 02/25/18 02/25/18 History lisinopril 2.5 mg PO DAILY 02/25/18 02/25/18 History metformin 1,000 mg PO BID 02/25/18 02/25/18 History omeprazole 20 mg PO DAILY 02/25/18 02/25/18 History rosuvastatin 10 mg PO DAILY 02/25/18 02/25/18 History Exam Vital signs: Vital Signs 02/25/18 12:35 02/25/18 15:21 02/25/18 16:00 Temperature 98.6 F Pulse Rate 90 90 Respiratory Rate 16 18 Blood Pressure 120/57 L 129/62 Pulse Oximetry 94 L 95 90 L 02/25/18 16:02 Temperature Pulse Rate Respiratory Rate Blood Pressure Pulse Oximetry 94 L Intake & Output 02/24/18 02/25/18 02/25/18 18:59 06:59 18:59 Weight 113.398 kg Narrative: Awake alert oriented x3 vital signs stable HEENT exam anicteric sclerae pink palpebral conjunctiva Neck supple no nuchal rigidity Chest lungs bilateral breath sounds equal no rales no wheezes Regular rhythm Abdomen is soft good bowel sounds Extremities left lower extremity with calf swelling and tenderness good peripheral pulses Neurologic exam Results - Labs CBC & Chem 7: 02/26/18 05:18 02/26/18 05:18 Labs: Laboratory Results - last 24 hr 02/25/18 02/25/18 02/25/18 15:10 15:10 17:27 WBC 8.1 RBC 5.00 Hgb 14.4 Hct 44.2 MCV 88.4 MCH 28.9 MCHC 32.6 RDW 18.4 H Plt Count 221 MPV 7.9 Neut % (Auto) 67.0 Lymph % (Auto) 21.4 [place] % (Auto) 9.3 H Eos % (Auto) 1.6 Baso % (Auto) 0.7 Neut # (Auto) 5.4 Lymph # (Auto) 1.7 [place] # (Auto) 0.8 Eos # (Auto) 0.1 Baso # (Auto) 0.1 WBC Differential . Differential Comment Auto diff final PT 11.2 INR 1.1 APTT 26.4 Sodium 138 Potassium 4.1 Chloride 101 Carbon Dioxide 28.2 Anion Gap 9 BUN 19 H Creatinine 1.31 H Estimated GFR 55 L Random Glucose 202 H Calcium 8.4 L Total Bilirubin 0.3 AST 25 ALT 31 Alkaline Phosphatase 79 Troponin I Less than 0.02 L Total Protein 7.7 Albumin 3.2 L - Imaging Impressions Chest X-Ray 02/25/18 14:56 CONCLUSION: No acute abnormality is seen. Venous Doppler Study 02/25/18 14:56 CONCLUSION: Partially occlusive thrombus present in the right popliteal vein and posterior tibial vein Chest CTA 02/25/18 16:12 CONCLUSION: 1. Positive for small pulmonary emboli, predominantly in the right lower lobe. 2. Dense coronary calcifications, predominantly LAD. 3. Mild to moderate centrilobular emphysema. Caprini VTE Risk Assessment Caprini VTE Risk Assessment: Moderate/High Risk (score >= 2) Caprini Risk Assessment Model: Point Value = 1 Point Value = 2 Point Value = 3 Point Value = 5 Age 41-60 Minor surgery BMI > 25 kg/m2 Swollen legs Varicose veins or History of unexplained or recurrent spontaneous Oral contraceptives or hormone replacement Sepsis (< 1 month) Serious lung disease, including pneumonia (< 1 month) Abnormal pulmonary function Acute myocardial infarction Congestive heart failure (< 1 month) History of inflammatory bowel disease Medical patient at bed rest Age 61-74 Arthroscopic surgery Major open surgery (> 45 min) Laparoscopic surgery (> 45 min) Malignancy Confined to bed (> 72 hours) Immobilizing plaster cast Central venous access Age >= 75 History of VTE Family history of VTE Factor V Leiden Prothrombin [id number] Lupus anticoagulant Anticardiolipin antibodies Elevated serum homocysteine Heparin-induced thrombocytopenia Other congenital or acquired thrombophilia Stroke (< 1 month) Elective arthroplasty Hip, pelvis, or leg fracture Acute spinal cord injury (< 1 month) Prophylaxis Regimen: Total Risk Factor Score Risk Level Prophylaxis Regimen 0-1 Low Early ambulation 2 Moderate Order ONE of the following: *Sequential Compression Device (SCD) *Heparin 5000 units SQ BID 3-4 Higher Order ONE of the following medications: *Heparin 5000 units SQ TID *Enoxaparin/Lovenox 40 mg SQ daily (WT < 150 kg, CrCl > 30 mL/min) *Enoxaparin/Lovenox 30 mg SQ daily (WT < 150 kg, CrCl > 10-29 mL/min) *Enoxaparin/Lovenox 30 mg SQ BID (WT < 150 kg, CrCl > 30 mL/min) AND/OR *Sequential Compression Device (SCD) 5 or more Highest Order ONE of the following medications: *Heparin 5000 units SQ TID (Preferred with Epidurals) *Enoxaparin/Lovenox 40 mg SQ daily (WT < 150 kg, CrCl > 30 mL/min) *Enoxaparin/Lovenox 30 mg SQ daily (WT < 150 kg, CrCl > 10-29 mL/min) *Enoxaparin/Lovenox 30 mg SQ BID (WT < 150 kg, CrCl > 30 mL/min) AND *Sequential Compression Device (SCD) Assessment and Plan - Plan 67-year-old male presenting with left leg swelling with acute shortness of breath on workup shows Acute pulmonary embolism- unprovoked Acute DVT left leg Patient is hemodynamically stable will start patient on Eliquis 10 mg twice daily for 7 days then 5 mg twice a day Patient states he is fairly active at home no recent travel. Patient does have history of restless leg syndrome. No recent surgery 02 supplement Consider Oncology consult in am History of diabetes type 2 insulin requiring Continue on NovoLog sliding scale for now restart his Lantus at 1/2 home dose - 26 units bid- at home was on 55 units bid We will hold his metformin as patient just recently received contrast IV for CTA study COPD home O2 dependent at bedtime/obstructive sleep apnea on BiPAP Informed patient to ask family to bring him his BiPAP machine Continue on inhalers Spiriva, spiriva, symbicort History of CAD status post stent in 2012 history of cardiomyopathy review old records his EF is 45% Continue on Lasix 40 mg daily, lisinopril 2.5 mg daily, statins 10 mg daily, continue ASA History of restless leg syndrome/anxiety. Continue on bupropion 150 mg p.o. every morning Continue on carbidopa 25/100 mg p.o. at bedtime History of GERD/PUD continue on PPI Acute kidney injury continue on gentle hydration recheck BMP in a.m. Discussed Condition With: patient
[2018-02-25] MEDS ORDERED: Dextrose 50% in Water 50 ML Vial IV.PUSH PRN (19:17)
[2018-02-25] MEDS: Insulin NovoLOG Aspart Correctional Sugar Inj SQ SCH (21:33)
[2018-02-25] MEDS: Budesonide-Formoterol 160/4.5 MCG 6 GM Inhaler INH SCH (21:33)
--- NOTE | 2018-02-25 21:52 | P.PN ---
Subjective Interval history: NOT seen Physical Exam Vital signs: Vital Signs 02/25/18 12:35 02/25/18 15:21 02/25/18 16:00 Temperature 98.6 F Pulse Rate 90 90 Respiratory Rate 16 18 Blood Pressure 120/57 L 129/62 Pulse Oximetry 94 L 95 90 L 02/25/18 16:02 02/25/18 19:03 02/25/18 20:00 Temperature 98.9 F Pulse Rate 90 92 H Respiratory Rate 18 20 Blood Pressure 121/61 138/75 Pulse Oximetry 94 L 94 L Intake & Output 02/25/18 02/25/18 02/26/18 06:59 18:59 06:59 Weight 113.398 kg Narrative: Awake alert oriented x3 vital signs stable HEENT exam anicteric sclerae pink palpebral conjunctiva Neck supple no nuchal rigidity Chest lungs bilateral breath sounds equal no rales no wheezes Regular rhythm Abdomen is soft good bowel sounds Extremities left lower extremity with calf swelling and tenderness good peripheral pulses Neurologic exam Results - Labs CBC & Chem 7: 02/26/18 05:18 02/26/18 05:18 Laboratory Results - last 24 hr 02/25/18 02/25/18 02/25/18 15:10 15:10 17:27 WBC 8.1 RBC 5.00 Hgb 14.4 Hct 44.2 MCV 88.4 MCH 28.9 MCHC 32.6 RDW 18.4 H Plt Count 221 MPV 7.9 Neut % (Auto) 67.0 Lymph % (Auto) 21.4 [place] % (Auto) 9.3 H Eos % (Auto) 1.6 Baso % (Auto) 0.7 Neut # (Auto) 5.4 Lymph # (Auto) 1.7 [place] # (Auto) 0.8 Eos # (Auto) 0.1 Baso # (Auto) 0.1 WBC Differential . Differential Comment Auto diff final PT 11.2 INR 1.1 APTT 26.4 Sodium 138 Potassium 4.1 Chloride 101 Carbon Dioxide 28.2 Anion Gap 9 BUN 19 H Creatinine 1.31 H Estimated GFR 55 L POC Glucose Random Glucose 202 H Calcium 8.4 L Total Bilirubin 0.3 AST 25 ALT 31 Alkaline Phosphatase 79 Troponin I Less than 0.02 L Total Protein 7.7 Albumin 3.2 L 02/25/18 20:01 WBC RBC Hgb Hct MCV MCH MCHC RDW Plt Count MPV Neut % (Auto) Lymph % (Auto) [place] % (Auto) Eos % (Auto) Baso % (Auto) Neut # (Auto) Lymph # (Auto) [place] # (Auto) Eos # (Auto) Baso # (Auto) WBC Differential Differential Comment PT INR APTT Sodium Potassium Chloride Carbon Dioxide Anion Gap BUN Creatinine Estimated GFR POC Glucose 138 H Random Glucose Calcium Total Bilirubin AST ALT Alkaline Phosphatase Troponin I Total Protein Albumin - Imaging Impressions Chest X-Ray 02/25/18 14:56 CONCLUSION: No acute abnormality is seen. Venous Doppler Study 02/25/18 14:56 CONCLUSION: Partially occlusive thrombus present in the right popliteal vein and posterior tibial vein Chest CTA 02/25/18 16:12 CONCLUSION: 1. Positive for small pulmonary emboli, predominantly in the right lower lobe. 2. Dense coronary calcifications, predominantly LAD. 3. Mild to moderate centrilobular emphysema. - Procedures none Assessment and Plan - Plan 67-year-old male presenting with left leg swelling with acute shortness of breath on workup shows Acute pulmonary embolism- unprovoked Acute DVT left leg Patient is hemodynamically stable will start patient on Eliquis 10 mg twice daily for 7 days then 5 mg twice a day Patient states he is fairly active at home no recent travel. Patient does have history of restless leg syndrome. No recent surgery 02 supplement Heme consult. Check ECHO and A/p CT History of diabetes type 2 insulin requiring Continue on NovoLog sliding scale for now restart his Lantus at 1/2 home dose - 26 units bid- at home was on 55 units bid We will hold his metformin as patient just recently received contrast IV for CTA study COPD home O2 dependent at bedtime/obstructive sleep apnea on BiPAP Informed patient to ask family to bring him his BiPAP machine Continue on inhalers Spiriva, spiriva, symbicort History of CAD status post stent in 2013 history of cardiomyopathy review old records his EF is 45% Continue on Lasix 40 mg daily, lisinopril 2.5 mg daily, statins 10 mg daily, low dose ASA History of restless leg syndrome/anxiety. Continue on bupropion 150 mg p.o. every morning Continue on carbidopa 25/100 mg p.o. at bedtime History of GERD/PUD continue on PPI Mild acute kidney injury. Improved continue on gentle hydration recheck BMP in a.m.
[2018-02-25] MEDS ORDERED: OPTH EACH EYE SCH (22:00)
[2018-02-25] MEDS ORDERED: BRIMONIDINE 0.1% EACH EYE SCH (22:00)
[2018-02-26 01:54] LABS: CKMB Percent 1.7 % (0.0-4.0); Creatine Kinase MB 7.7 ng/mL (0.5-3.6)
[2018-02-26 06:02] LABS: Hematocrit 43.7 % (39.0-51.0); Hemoglobin 14.4 gm/dL (13.0-17.0); Mean Corpuscular HGB Conc 32.9 % (32.0-36.0); Mean Corpuscular Hemoglobin 28.5 pg (27.0-34.0); Mean Corpuscular Volume 86.5 fL (80.0-100.0); Mean Platelet Volume 8.1 fL (7.0-11.0); Platelet Count 239 th/mm3 (150-450); Red Blood Count 5.05 mil/mm3 (4.50-5.90)
[2018-02-26 06:28] LABS: Calcium 8.7 mg/dL (8.5-10.1); Carbon Dioxide 33.1 meq/L (21.0-32.0)
[2018-02-26 06:28] LABS: Bacteria,Urine Rare /hpf; Bilirubin,Urine Negative (Negative); Clarity,Urine Clear (Clear); Color,Urine Yellow (Yellw/Straw); Glucose,Urine (UA) 500 or Greater mg/dL (Negative); Leukocyte Esterase,Urine Negative (Negative); Nitrite,Urine Negative (Negative); Specific Gravity,Urine 1.027 (1.002-1.035); Squamous Epithelial Cell,Urine 1 /hpf (0-5)
[2018-02-26] MEDS: Insulin NovoLOG Aspart Correctional Sugar Inj SQ SCH ×4 (09:45→21:57)
[2018-02-26] MEDS: Furosemide 40 MG Tablet PO SCH (09:46)
[2018-02-26] MEDS: buPROPion 150 MG XL 24 HR Tablet PO SCH (09:46)
[2018-02-26] MEDS: Lisinopril 5 MG Tablet PO SCH (09:46)
[2018-02-26] MEDS: Budesonide-Formoterol 160/4.5 MCG 6 GM Inhaler INH SCH ×2 (09:46→21:57)
[2018-02-26] MEDS: Pantoprazole Sodium 20 MG DR Tablet PO SCH (09:46)
--- NOTE | 2018-02-26 10:54 | MB ---
cc: Florencia Higgins MD,Jeff DOW DATE: 02/26/2018 REFERRING PHYSICIAN: Dr. Jeff Obrien. CHIEF COMPLAINT: Dr. Obrien requests a consultation for Mr. Mcgowan with newly diagnosed right lower extremity deep vein thromboses associated with pulmonary embolism. HISTORY OF PRESENT ILLNESS: Mr. Mcgowan is a 67-year-old man with multiple medical problems including COPD, sleep apnea, diabetes, peripheral neuropathy, coronary artery disease. He reports a very sedentary lifestyle. He usually gets his care through the [facility]. Several days prior to his presentation, he spent a lot of time in bed. The weekend prior to his presentation, he was watching football all day on Friday. He woke up with pain in his right leg. He managed it conservatively. He did not present to the emergency room until 02/25/2018. Doppler ultrasound of the right lower extremity was performed that showed a partially occlusive thrombus in the right popliteal and posterior tibial veins. Shortness of breath was elicited, possibly worse than his baseline. For that reason, a CT angiogram was performed. The CT angiogram was positive for small pulmonary emboli, predominantly in the right lower lobe. He has dense coronary calcification. He had mild to moderate centrilobular emphysema. He was started on the new oral anticoagulant, apixaban. He was started on a standard dose of 10 mg. He is tolerating it well. He still has some tenderness in the left calf. The left calf looks prominent. He is at his baseline shortness of breath. He describes that his lung functions are less than optimal when he goes through pulmonary function studies for the [facility]. He gets his prescriptions through the [facility]. He has multiple medical problems. He is followed by [facility]. He is happy with his care there. He, because of his medical problems, spends a lot of time in bed unfortunately. PAST MEDICAL HISTORY: Diabetes, restless legs, anxiety, coronary artery disease status post stent placement, hyperlipidemia, hypertension, COPD, gastroesophageal reflux. PAST SURGICAL HISTORY: Stent placement. SOCIAL HISTORY: He is , lives with his . He quit smoking many years ago. He denies any alcohol use. He drank heavily in the service. Denies any illicit drug use. FAMILY HISTORY: Mother had a history of deep vein thromboses in her 60s. Mother was diabetic and of complications of diabetes. ALLERGIES: NO KNOWN DRUG ALLERGIES. CURRENT MEDICATIONS: 1. Apixaban 5 mg p.o. b.i.d. 2. Aspirin. 3. Lipitor. 4. Symbicort. 5. Wellbutrin 6. Sinemet. 7. Lasix. 8. Insulin. 9. Lisinopril. 10. Pantoprazole. PHYSICAL EXAMINATION: VITAL SIGNS: Temperature 98.1, heart rate 87, respiratory rate 18, blood pressure 122/70, saturation 92%-96%. GENERAL: Mr. Mcgowan is a well-developed, morbidly obese man. He lumbers sitting up in bed. HEENT: His pupils are round, reactive to light and accommodation. Oropharynx is clear. NECK: Supple. LUNGS: With diminished breath sounds throughout. CARDIOVASCULAR: Reveals a normal rate and rhythm. ABDOMEN: Benign. EXTREMITIES: Left leg more prominent then the right. There is tenderness in the right leg more prominent than the left. There is tenderness in the right calf. NEUROLOGIC: Nonfocal. LABS: CBC normal. Comprehensive metabolic panel shows an elevated BUN; creatinine is normalized. Glucose on admission was 202. Troponin I was negative. ASSESSMENT AND PLAN: Mr. Mcgowan is a 67-year-old man with multiple medical problems described above. He lives a very sedentary lifestyle. He was in bed most of the day on Friday and presents with right leg pain on Friday. Imaging study confirmed a right lower extremity deep vein thromboses and pulmonary embolism. We discussed at length his diagnosis. He needs to continue on anticoagulant therapy. He gets his medication at the [facility] and he is confident that he should be able to afford or obtain the new oral anticoagulant. Risk and benefit of Eliquis was discussed. He seems to be tolerating the Eliquis well. Difficulty is the ideal dosing in patients who are quite obese. His BSA is 2.2. His body mass index is 39. Currently, he is on a dose of Eliquis 5 mg twice a day. We may consider a higher dose as he is not responding, at least not overnight, to the lower dose of the Eliquis. Again, ideal dose in morbidly obese patients is very difficult with the new oral anticoagulants. This is the same problem even for the low molecular weight heparin. We discussed the concern of mixing the new oral anticoagulant with antiplatelet therapy. His last stent and cardiac procedure was in 2012. We may be able to either hold or decrease the frequency of aspirin. The combination of new oral anticoagulant and aspirin increases the risk of bleeding. Mr. Mcgowan's questions were answered to his satisfaction MD CAMMIE Salvador/autumn , 10:22 AM , 10:36 AM
--- NOTE | 2018-02-26 14:13 | P.PN ---
Subjective Interval history: Follow-up DVT and PE. Seen in echo lab. Patient has not been out of bed reports of leg pain. Denies chest pain or shortness of breath. He uses oxygen at home as needed. Patient advised to undergo cancer screening outpatient ( abdominal CT and prostate examination). He had a negative colonoscopy a year ago Physical Exam Vital signs: Vital Signs 02/25/18 15:21 02/25/18 16:00 02/25/18 16:02 Temperature Pulse Rate 90 Respiratory Rate 18 Blood Pressure 129/62 Pulse Oximetry 95 90 L 94 L 02/25/18 19:03 02/25/18 20:00 02/25/18 23:07 Temperature 98.9 F Pulse Rate 90 92 H Respiratory Rate 18 20 Blood Pressure 121/61 138/75 Pulse Oximetry 94 L 96 02/25/18 23:57 02/26/18 03:11 02/26/18 07:19 Temperature 98.2 F 98.1 F 98.1 F Pulse Rate 85 90 87 Respiratory Rate 18 18 18 Blood Pressure 111/87 131/75 122/70 Pulse Oximetry 94 L 92 L 92 L 02/26/18 09:40 02/26/18 12:00 Temperature 98.0 F Pulse Rate 89 Respiratory Rate 18 Blood Pressure 141/65 H Pulse Oximetry 93 L 93 L Intake & Output 02/25/18 02/26/18 02/26/18 18:59 06:59 18:59 Weight 113.398 kg Other: Post Void Residual 1,750 Narrative: Awake alert oriented x3 vital signs stable HEENT exam anicteric sclerae pink palpebral conjunctiva Neck supple no nuchal rigidity Chest lungs bilateral breath sounds equal no rales no wheezes Regular rhythm Abdomen is soft good bowel sounds Extremities left lower extremity with calf swelling and tenderness good peripheral pulses Neurologic exam nonfocal Results - Labs CBC & Chem 7: 02/26/18 05:18 02/26/18 05:18 Laboratory Results - last 24 hr 02/25/18 02/25/18 02/25/18 15:10 15:10 15:10 WBC 8.1 RBC 5.00 Hgb 14.4 Hct 44.2 MCV 88.4 MCH 28.9 MCHC 32.6 RDW 18.4 H Plt Count 221 MPV 7.9 Neut % (Auto) 67.0 Lymph % (Auto) 21.4 [place] % (Auto) 9.3 H Eos % (Auto) 1.6 Baso % (Auto) 0.7 Neut # (Auto) 5.4 Lymph # (Auto) 1.7 [place] # (Auto) 0.8 Eos # (Auto) 0.1 Baso # (Auto) 0.1 WBC Differential . Differential Comment Auto diff final PT INR APTT Sodium 138 Potassium 4.1 Chloride 101 Carbon Dioxide 28.2 Anion Gap 9 BUN 19 H Creatinine 1.31 H Estimated GFR 55 L POC Glucose Random Glucose 202 H Calcium 8.4 L Total Bilirubin 0.3 AST 25 ALT 31 Alkaline Phosphatase 79 Total Creatine Kinase 457 H CK-MB (CK-2) 7.7 H CK-MB (CK-2) % 1.7 Troponin I Less than 0.02 L Total Protein 7.7 Albumin 3.2 L Urine Color Urine Clarity Urine pH Ur Specific [place] Urine Protein Urine Glucose (UA) Urine Ketones Urine Occult Blood Urine Nitrate Urine Bilirubin Urine Urobilinogen Ur Leukocyte Esterase Urine RBC Urine WBC Ur Squamous Epith Cells Urine Bacteria Micro UA Comment Ur Microscopic Review Urine Culture Comments 02/25/18 02/25/18 02/26/18 17:27 20:01 05:18 WBC 9.0 RBC 5.05 Hgb 14.4 Hct 43.7 MCV 86.5 MCH 28.5 MCHC 32.9 RDW 18.0 H Plt Count 239 MPV 8.1 Neut % (Auto) Lymph % (Auto) [place] % (Auto) Eos % (Auto) Baso % (Auto) Neut # (Auto) Lymph # (Auto) [place] # (Auto) Eos # (Auto) Baso # (Auto) WBC Differential Differential Comment PT 11.2 INR 1.1 APTT 26.4 Sodium Potassium Chloride Carbon Dioxide Anion Gap BUN Creatinine Estimated GFR POC Glucose 138 H Random Glucose Calcium Total Bilirubin AST ALT Alkaline Phosphatase Total Creatine Kinase CK-MB (CK-2) CK-MB (CK-2) % Troponin I Total Protein Albumin Urine Color Urine Clarity Urine pH Ur Specific [place] Urine Protein Urine Glucose (UA) Urine Ketones Urine Occult Blood Urine Nitrate Urine Bilirubin Urine Urobilinogen Ur Leukocyte Esterase Urine RBC Urine WBC Ur Squamous Epith Cells Urine Bacteria Micro UA Comment Ur Microscopic Review Urine Culture Comments 02/26/18 02/26/18 02/26/18 05:18 05:40 08:09 WBC RBC Hgb Hct MCV MCH MCHC RDW Plt Count MPV Neut % (Auto) Lymph % (Auto) [place] % (Auto) Eos % (Auto) Baso % (Auto) Neut # (Auto) Lymph # (Auto) [place] # (Auto) Eos # (Auto) Baso # (Auto) WBC Differential Differential Comment PT INR APTT Sodium 139 Potassium 4.0 Chloride 99 Carbon Dioxide 33.1 H Anion Gap 7 BUN 24 H Creatinine 0.92 Estimated GFR 82 L POC Glucose 152 H Random Glucose 136 H Calcium 8.7 Total Bilirubin AST ALT Alkaline Phosphatase Total Creatine Kinase CK-MB (CK-2) CK-MB (CK-2) % Troponin I Total Protein Albumin Urine Color Yellow Urine Clarity Clear Urine pH 5.0 Ur Specific [place] 1.027 Urine Protein Negative Urine Glucose (UA) 500 or greater Urine Ketones Negative Urine Occult Blood Negative Urine Nitrate Negative Urine Bilirubin Negative Urine Urobilinogen Less than 2 Ur Leukocyte Esterase Negative Urine RBC 2 Urine WBC 4 Ur Squamous Epith Cells 1 Urine Bacteria Rare H Micro UA Comment Culture not ind Ur Microscopic Review Not Reportable Urine Culture Comments Culture not ind 02/26/18 12:53 WBC RBC Hgb Hct MCV MCH MCHC RDW Plt Count MPV Neut % (Auto) Lymph % (Auto) [place] % (Auto) Eos % (Auto) Baso % (Auto) Neut # (Auto) Lymph # (Auto) [place] # (Auto) Eos # (Auto) Baso # (Auto) WBC Differential Differential Comment PT INR APTT Sodium Potassium Chloride Carbon Dioxide Anion Gap BUN Creatinine Estimated GFR POC Glucose 147 H Random Glucose Calcium Total Bilirubin AST ALT Alkaline Phosphatase Total Creatine Kinase CK-MB (CK-2) CK-MB (CK-2) % Troponin I Total Protein Albumin Urine Color Urine Clarity Urine pH Ur Specific [place] Urine Protein Urine Glucose (UA) Urine Ketones Urine Occult Blood Urine Nitrate Urine Bilirubin Urine Urobilinogen Ur Leukocyte Esterase Urine RBC Urine WBC Ur Squamous Epith Cells Urine Bacteria Micro UA Comment Ur Microscopic Review Urine Culture Comments - Imaging Impressions Chest X-Ray 02/25/18 14:56 CONCLUSION: No acute abnormality is seen. Venous Doppler Study 02/25/18 14:56 CONCLUSION: Partially occlusive thrombus present in the right popliteal vein and posterior tibial vein Chest CTA 02/25/18 16:12 CONCLUSION: 1. Positive for small pulmonary emboli, predominantly in the right lower lobe. 2. Dense coronary calcifications, predominantly LAD. 3. Mild to moderate centrilobular emphysema. - Procedures none Assessment and Plan - Plan 67-year-old male presenting with left leg swelling with acute shortness of breath on workup shows Acute pulmonary embolism- unprovoked Acute DVT left leg Patient is hemodynamically stable will start patient on Eliquis 10 mg twice daily for 7 days then 5 mg twice a day Patient has been sedentary since he stopped going to pulmonary rehab for COPD. Patient does have history of restless leg syndrome. 02 supplement Heme consulted. Check ECHO. Cancer screening outpatient discussed with patient History of diabetes type 2 insulin requiring Continue on NovoLog sliding scale for now restart his Lantus at / home dose - 26 units bid- at home was on 55 units bid We will hold his metformin as patient just recently received contrast IV for CTA study COPD home O2 dependent at bedtime/obstructive sleep apnea on BiPAP Informed patient to ask family to bring him his BiPAP machine Continue on inhalers Spiriva, spiriva, symbicort History of CAD status post stent in 2012 history of cardiomyopathy review old records his EF is 45% Continue on Lasix 40 mg daily, lisinopril 2.5 mg daily, statins 10 mg daily, low dose ASA History of restless leg syndrome/anxiety. Continue on bupropion 150 mg p.o. every morning Continue on carbidopa 25/100 mg p.o. at bedtime History of GERD/PUD continue on PPI Mild acute kidney injury. Improved on gentle hydration PT eval Discharge Planning: Dc when cleared by PT
--- NOTE | 2018-02-26 16:04 | P.DCO ---
- Diagnosis (1) Pulmonary embolism Status: Acute (2) Deep vein thrombosis of lower extremity Status: Acute - Physical Therapy Order: Evaluate and treat, Improve ambulation, Strength and gait training - Case Management Consult Case Management Consult-Home Health: Yes - Certification I have seen patient Catracho Mcgowan on 02/26/18. My clinical findings support the need for the requested home health care services because: Patient has SOB I certify that my clinical findings support that this patient is homebound because: Hx COPD - exertion dyspnea/weakness (1) Pulmonary embolism Qualifiers: Pulmonary embolism type: other Chronicity: acute Acute cor pulmonale presence: without acute cor pulmonale Qualified Code(s): I26.99 - Other pulmonary embolism without acute cor pulmonale (2) Deep vein thrombosis of lower extremity Qualifiers: Affected thrombotic vein of extremity: popliteal Chronicity: acute Laterality: right Qualified Code(s): I82.431 - Acute embolism and thrombosis of right popliteal vein
--- NOTE | 2018-02-26 17:57 | ECG ---
Date Performed: 02/25/2018 Time Performed: 15:17:06 PTAGE: 67 years EKG: Sinus rhythm NORMAL ECG PREVIOUS TRACING : 09/20/2017 02.36 Since the previous tracing, no significant change noted DOCTOR: Amos Huitron Interpretating Date/Time 02/26/2018 17:55:41
[2018-02-26] MEDS ORDERED: Insulin NovoLOG Aspart Correctional Sugar Inj SQ SCH (18:00)
--- NOTE | 2018-02-26 18:22 | ECHRPT ---
Indication: SHORT OF BREATH CONCLUSIONS Severely dilated left ventricle. Mild concentric left ventricular hypertrophy. The left ventricular systolic function is mildly reduced with an estimated ejection fraction in the range of 45- 50%. [id number]-blhb mitral valve regurgitation. The estimated pulmonary arterial pressure is 47 mmHg. BP: / HR: Rhythm: MEASUREMENTS (Male / Female) Normal Values Technical Quality:Very technically difficult study 2D ECHO LV Diastolic Diameter PLAX 6.1 cm 4.2 - 5.9 / 3.9 - 5.3 cm LV Systolic Diameter PLAX 4.7 cm IVS Diastolic Thickness 1.3 cm 0.6 - 1.0 / 0.6 - 0.9 cm LVPW Diastolic Thickness 1.4 cm 0.6 - 1.0 / 0.6 - 0.9 cm LV Relative Wall Thickness 0.5 RV Internal Dim ED PLAX 2.4 cm LVOT Diameter 1.7 cm Aortic Root Diameter 3.0 cm LA Systolic Diameter LX 3.8 cm 3.0 - 4.0 / 2.7 - 3.8 cm LV Ejection Fraction MOD BP 41.1 % >= 55 % LV Ejection Fraction MOD 4C 44.8 % LV Ejection Fraction 4C AL 45.6 % LV Ejection Fraction MOD 2C 40.0 % LV Ejection Fraction 2C AL 42.0 % M-MODE Aortic Root Diameter MM 3.7 cm LA Systolic Diameter MM 4.7 cm LA Ao Ratio MM 1.3 AV Cusp Separation MM 2.0 cm DOPPLER AV Peak Velocity 135.0 cm/s AV Peak Gradient 7.3 mmHg LVOT Peak Velocity 117.0 cm/s LVOT Peak Gradient 5.5 mmHg AV Area Cont Eq pk 2.0 cm Mitral E Point Velocity 67.6 cm/s Mitral A Point Velocity 86.4 cm/s Mitral E to A Ratio 0.8 LV E' Lateral Velocity 9.4 cm/s Mitral E to LV E' Lateral Ratio 7.2 LV E' Septal Velocity 5.7 cm/s Mitral E to LV E' Septal Ratio 12.0 TR Peak Velocity 307.0 cm/s TR Peak Gradient 37.7 mmHg Right Atrial Pressure 10.0 mmHg Pulmonary Artery Systolic Pressu 47.7 mmHg Right Ventricular Systolic Press 47.7 mmHg PV Peak Velocity 72.6 cm/s PV Peak Gradient 2.1 mmHg FINDINGS LEFT VENTRICLE Severely dilated left ventricle. Mild concentric left ventricular hypertrophy. The left ventricular systolic function is mildly reduced with an estimated ejection fraction in the range of 45- 50%. RIGHT VENTRICLE Normal right ventricular size and systolic function. LEFT ATRIUM The left atrial size is normal. RIGHT ATRIUM The right atrial size is normal. ATRIAL SEPTUM Normal atrial septal thickness without atrial level shunting by limited color doppler interrogation. AORTA The aortic root and proximal ascending aorta are normal in size on limited imaging. MITRAL VALVE Purla-hv-aunr mitral valve regurgitation. AORTIC VALVE Trileaflet aortic valve. No aortic valve stenosis or regurgitation. TRICUSPID VALVE The estimated pulmonary arterial pressure is 47 mmHg. PULMONARY VALVE No pulmonary valve regurgitation or stenosis. VESSELS The inferior vena cava is normal in size. PERICARDIUM No pericardial effusion. Timothy Mead MD, FACC, [facility] [place] (Electronically Signed) Final Date:26 February 2018 18:20
[2018-02-26] MEDS: Insulin Detemir Inj 1,000 UNIT/10 ML Vial SQ SCH (21:58)
[2018-02-27] MEDS: Insulin NovoLOG Aspart Correctional Sugar Inj SQ SCH (08:09)
[2018-02-27 08:27] VITALS: BP 115/68; PULSE 80; RESP 18; TEMP 98.9; O2SAT 94
--- NOTE | 2018-02-27 08:27 | P.PNONC ---
Subjective Interval history: Patient lying in bed with BiPAP. Reports he walked around the unit. Right leg pain is improved. Denies any bleeding. Objective Vital Signs/Intake & Output: Vital Signs 02/26/18 09:40 02/26/18 12:00 02/26/18 16:00 Temperature 98.0 F 98.3 F Pulse Rate 89 90 Respiratory Rate 18 18 Blood Pressure 141/65 H 112/66 Pulse Oximetry 93 L 93 L 93 L 02/26/18 19:12 02/26/18 20:00 02/26/18 23:32 Temperature 99.2 F 98.5 F Pulse Rate 88 85 Respiratory Rate 20 22 Blood Pressure 134/65 107/59 L Pulse Oximetry 93 L 93 L 93 L 02/27/18 04:23 Temperature 98.1 F Pulse Rate 81 Respiratory Rate 20 Blood Pressure 127/62 Pulse Oximetry 95 Intake & Output 02/26/18 02/27/18 02/27/18 18:59 06:59 18:59 Intake Total 1600 / 1600 Output Total 900 / 900 Balance 700 / 700 Intake: IV 800 / 800 NS Inj 1,000 ML @ 50 mls/hr IV. 800 / 800 CONT .Q20H [facility] Rx#:[id number] Oral 800 / 800 Output: Urine 900 / 900 Result Diagrams: 02/26/18 05:18 02/26/18 05:18 Laboratory Results: Laboratory Results - last 24 hr 02/26/18 02/26/18 02/26/18 12:53 16:32 20:54 POC Glucose 147 H 258 H 208 H 02/27/18 02/27/18 05:41 08:08 POC Glucose 145 H 140 H Medications: Active Medications Generic Name Dose Route Start Last Admin Trade Name Marcelloq PRN Reason Stop Dose Admin Apixaban 10 mg 02/26/18 06:00 02/27/18 06:04 Eliquis PO 03/01/18 05:59 10 mg BID@0600,1800 MEGHANN Administration Aspirin 81 mg 02/26/18 09:00 02/26/18 09:46 Aspirin Chew PO 81 mg DAILY MEGHANN Administration Atorvastatin Calcium 20 mg 02/26/18 09:00 02/26/18 09:46 Lipitor PO 20 mg DAILY MEGHANN Administration Budesonide/Formoterol Fumarate 2 puff 02/25/18 21:00 02/26/18 21:57 Symbicort 160/4.5 Mcg Inh INH 2 puff BID MEGHANN Administration Bupropion HCl 150 mg 02/26/18 09:00 02/26/18 09:46 Wellbutrin Xl PO 150 mg DAILY MEGHANN Administration Carbidopa/Levodopa 1 tab 02/25/18 21:00 02/26/18 21:59 Sinemet 25/100 Mg PO 1 tab HS MEGHANN Administration Furosemide 40 mg 02/26/18 09:00 02/26/18 09:46 Lasix PO 40 mg DAILY MEGHANN Administration Insulin Aspart 0 unit 02/26/18 17:00 02/27/18 08:09 Novolog Insulin Correctional Sugar Inj SQ Not Given ACHS [facility] Protocol Insulin Detemir 26 unit 02/26/18 21:00 02/26/18 21:58 Levemir Inj SQ 26 unit BID MEGHANN Administration Lisinopril 2.5 mg 02/26/18 09:00 02/26/18 09:46 Prinivil PO 2.5 mg DAILY MEGHANN Administration Pantoprazole Sodium 20 mg 02/26/18 09:00 02/26/18 09:46 Protonix PO 20 mg DAILY MEGHANN Administration Objective Remarks: GENERAL: Obese, well-developed patient. SKIN: Warm and dry. HEAD: Normocephalic. EYES: No scleral icterus. No injection or drainage. NECK: Supple, trachea midline. No JVD or lymphadenopathy. LYMPHATIC: No adenopathy. CARDIOVASCULAR: Regular rate and rhythm without murmurs. RESPIRATORY: Breath sounds diminished throughout. GASTROINTESTINAL: Abdomen large. EXTREMITIES: No cyanosis, or edema. MUSCULOSKELETAL: Right calf more prominent than the left. Right calf improved from yesterday NEUROLOGICAL: No obvious focal deficit. Awake, alert, and oriented x3. PSYCHIATRIC: Appropriate mood and affect; insight and judgment normal. Assessment/Plan (1) Pulmonary embolism Code(s): I26.99 - Other pulmonary embolism without acute cor pulmonale Status : Acute (2) Deep vein thrombosis of lower extremity Code(s): I82.409 - Acute embolism and thrombosis of unspecified deep veins of unspecified lower extremity Status: Acute - Plan 67-year-old man with multiple medical problems. He is quite sedentary. He was more sedentary the weekend prior to his presentation. He developed pain in his right lower extremity with swelling. Doppler ultrasound confirmed right lower extremity deep vein thromboses. CT angiogram confirmed pulmonary embolism. He was started on anticoagulant therapy with Eliquis 10 mg p.o. twice daily. He is tolerating this well. The dose was discussed with the team. He weighs 113 kg. He has relatively normal renal function. I recommend continuing a loading dose of 10 mg p.o. twice a day for 1 week. Mr. Mcgowan receives his care at the [facility]. He anticipates going back to the [facility] in order to get his prescriptions. We discussed that he will need follow-up with his primary physician regarding his anticoagulant therapy. I anticipate that his aspirin therapy will be placed on hold while he is on Eliquis. Combination of an aspirin and a new oral anticoagulant increases the risk of bleeding. Case was discussed with his primary Hospitalist. His questions were answered to his satisfaction. (1) Pulmonary embolism Qualifiers: Pulmonary embolism type: other Chronicity: acute Acute cor pulmonale presence: without acute cor pulmonale Qualified Code(s): I26.99 - Other pulmonary embolism without acute cor pulmonale (2) Deep vein thrombosis of lower extremity Qualifiers: Affected thrombotic vein of extremity: popliteal Chronicity: acute Laterality: right Qualified Code(s): I82.431 - Acute embolism and thrombosis of right popliteal vein
--- NOTE | 2018-02-27 08:42 | P.PN ---
Subjective Interval history: Follow-up DVT. States improving right leg pain ambulating in the hallway without assistive device and oxygen. He uses oxygen at home as needed. Denies CHF symptoms Physical Exam Vital signs: Vital Signs 02/26/18 09:40 02/26/18 12:00 02/26/18 16:00 Temperature 98.0 F 98.3 F Pulse Rate 89 90 Respiratory Rate 18 18 Blood Pressure 141/65 H 112/66 Pulse Oximetry 93 L 93 L 93 L 02/26/18 19:12 02/26/18 20:00 02/26/18 23:32 Temperature 99.2 F 98.5 F Pulse Rate 88 85 Respiratory Rate 20 22 Blood Pressure 134/65 107/59 L Pulse Oximetry 93 L 93 L 93 L 02/27/18 04:23 02/27/18 08:00 Temperature 98.1 F 98.9 F Pulse Rate 81 80 Respiratory Rate 20 18 Blood Pressure 127/62 115/68 Pulse Oximetry 95 94 L Intake & Output 02/26/18 02/27/18 02/27/18 18:59 06:59 18:59 Intake Total 1600 / 1600 Output Total 900 / 900 Balance 700 / 700 Intake: IV 800 / 800 NS Inj 1,000 ML @ 50 mls/hr IV. 800 / 800 CONT .Q20H [facility] Rx#:[id number] Oral 800 / 800 Output: Urine 900 / 900 Narrative: Awake alert oriented x3 Chest lungs bilateral breath sounds equal no rales no wheezes Regular rhythm Abdomen is soft good bowel sounds Extremities left lower extremity with calf swelling and tenderness good peripheral pulses Neurologic exam nonfocal Results - Labs CBC & Chem 7: 02/26/18 05:18 02/26/18 05:18 Laboratory Results - last 24 hr 02/26/18 02/26/18 02/26/18 12:53 16:32 20:54 POC Glucose 147 H 258 H 208 H 02/27/18 02/27/18 05:41 08:08 POC Glucose 145 H 140 H - Imaging ITS Impressions Chest X-Ray 02/25/18 14:56 CONCLUSION: No acute abnormality is seen. Venous Doppler Study 02/25/18 14:56 CONCLUSION: Partially occlusive thrombus present in the right popliteal vein and posterior tibial vein Chest CTA 02/25/18 16:12 CONCLUSION: 1. Positive for small pulmonary emboli, predominantly in the right lower lobe. 2. Dense coronary calcifications, predominantly LAD. 3. Mild to moderate centrilobular emphysema. - Procedures none Assessment and Plan - Assessment (1) Pulmonary embolism Code(s): I26.99 - Other pulmonary embolism without acute cor pulmonale Status : Acute (2) Deep vein thrombosis of lower extremity Code(s): I82.409 - Acute embolism and thrombosis of unspecified deep veins of unspecified lower extremity Status: Acute - Plan 67-year-old male presenting with left leg swelling with acute shortness of breath on workup shows Acute pulmonary embolism- unprovoked Acute DVT left leg Patient is hemodynamically stable will start patient on Eliquis 10 mg twice daily for 7 days then 5 mg twice a day Patient has been sedentary since he stopped going to pulmonary rehab for COPD. Patient does have history of restless leg syndrome. 02 supplement Heme consulted. Cancer screening outpatient discussed with patient History of diabetes type 2 insulin requiring Continue on NovoLog sliding scale for now restart his Lantus at 1/2 home dose - 26 units bid- at home was on 55 units bid Restart metformin 48 hours after receiving contrast IV for CTA study COPD home O2 dependent at bedtime/obstructive sleep apnea on BiPAP Informed patient to ask family to bring him his BiPAP machine Continue on inhalers Spiriva, spiriva, symbicort History of CAD status post stent in 2012 history of cardiomyopathy review old records his EF is 45%. Echo shows severely dilated LV Continue on Lasix 40 mg daily, lisinopril 2.5 mg daily, statins 10 mg daily, low dose ASA. Unable to start BB 2/2 borderline BP and COPD. O/p f/u with cardiology History of restless leg syndrome/anxiety. Continue on bupropion 150 mg p.o. every morning Continue on carbidopa 25/100 mg p.o. at bedtime History of GERD/PUD continue on PPI Mild acute kidney injury. Improved on gentle hydration Discharge Planning: Discharge patient to home Condition on discharge: Improved earlier than anticipated Regular Diet as tolerated Ad Starr activity Rx written: Eliquis Follow-up with primary care physician and cardiology (1) Pulmonary embolism Qualifiers: Pulmonary embolism type: other Chronicity: acute Acute cor pulmonale presence: without acute cor pulmonale Qualified Code(s): I26.99 - Other pulmonary embolism without acute cor pulmonale (2) Deep vein thrombosis of lower extremity Qualifiers: Affected thrombotic vein of extremity: popliteal Chronicity: acute Laterality: right Qualified Code(s): I82.431 - Acute embolism and thrombosis of right popliteal vein
[2018-02-27] MEDS: Furosemide 40 MG Tablet PO SCH (11:03)
[2018-02-27] MEDS: Pantoprazole Sodium 20 MG DR Tablet PO SCH (11:03)
[2018-02-27] MEDS: Lisinopril 5 MG Tablet PO SCH (11:03)
[2018-02-27] MEDS: buPROPion 150 MG XL 24 HR Tablet PO SCH (11:04)
[2018-02-27] MEDS: Budesonide-Formoterol 160/4.5 MCG 6 GM Inhaler INH SCH (11:05)
[2018-02-27] MEDS: Insulin Detemir Inj 1,000 UNIT/10 ML Vial SQ SCH (11:16)
== END 2018-02-27 12:05 | disposition home or self-care (01) | DRG 299 ==
LOC: NEDA 12:31 → NEPD 12:31 → NEPFCDU 19:44
PROVIDERS: ADMIT Internal Medicine; ATTEND Internal Medicine
CPT/HCPCS: 71010; 71045; 71275; 80048; 80053; 81001; 82550; 82552; 82948; 82962; 84484; 85025; 85027; 85610; 85730; 90774; 90784; 93005; 93306; 93971; 96374; 97161; 99285; C8952; J1815; J2270; J7030; Q9967